=== PATIENT | male | born 1990 | race Caucasian/White ===

== ENCOUNTER → 2020-10-18 20:07 | Outpatient (CLI) | payer OTHER, SELFPAY | PROVIDERS: Visit Provider Nurse Practitioner | DX: G47.30 Sleep apnea, unspecified (principal) | CPT/HCPCS: 95811 ==

== ENCOUNTER → 2020-11-03 12:15 | Outpatient (CLI) | payer OTHER, SELFPAY | PROVIDERS: PCP Nurse Practitioner; Visit Provider Nurse Practitioner | DX: Z46.89 Encounter for fitting and adjustment of other specified devices (principal) ==

== ENCOUNTER 2020-12-30 11:35 | Outpatient (RCR) | payer OTHER, SELFPAY ==
[2017-08-23 09:45] VITALS: BMI 32.0
== END 2021-02-22 23:59 ==
LOC: IMMUN 11:35
PROVIDERS: PCP Nurse Practitioner; Referring Provider Family Medicine; Visit Provider Family Medicine
DX: Z23 Encounter for immunization (principal)
CPT/HCPCS: 0001A; 0002A; 91300

== ENCOUNTER → 2024-12-18 | Outpatient (CLI) | payer OTHER, SELFPAY ==
[2024-12-18 12:59] LABS: Hematocrit 44.7 % (40-54); Hemoglobin 14.5 g/dL (13.0-16.5)
[2024-12-18 13:54] LABS: ALB/GLOB Ratio 1.6 RATIO (0.9-2.4); AST(SGOT) 26 U/L (<=37); Alanine Aminotransfer ALT/SGPT 33 U/L (<=46); Albumin, Serum 4.5 g/dL (3.5-5.0); Alkaline Phosphatase 49 U/L (40-129); Anion Gap 11 (5-15); BUN 13 mg/dL (4-19); BUN/Creat Ratio 12.8 RATIO (10-20); Calcium,Total 9.4 mg/dL (7.6-11.0); Carbon Dioxide 23.9 mmol/L (21.0-32.0); Chloride 105 mmol/L (98-108); Cholesterol 132 mg/dL (<=200); Creatinine, Serum 0.97 mg/dL (0.70-1.20); EST Glomerular Filtration Rate 104 (>60); Estradiol 24.6 pg/mL; Follicle Stimulating Hormone 6.1 mIU/mL; Globulin 2.7 g/dL (2.2-4.2); Glucose 82 mg/dL (70-99); High Density Lipoprotein 54 mg/dL; Low Density Lipoprotein Calc. 65 mg/dL; Luteinizing Hormone 6.8 mIU/mL; Potassium 4.3 mmol/L (3.3-5.1); Protein, Total 7.2 g/dL (5.9-8.4); Sodium Level 140 mmol/L (133-145); Total Bilirubin 0.47 mg/dL (0.00-1.30); Triglycerides 66 mg/dL; Very Low Density Lipoprotein 13 mg/dL (5-40); cholesterol:hdl ratio screen 2.45
== END | disposition home or self-care (01) ==
LOC: LAB 12:26
PROVIDERS: PCP Nurse Practitioner; Referring Provider Registered Nurse; Visit Provider Registered Nurse
DX: E29.1 Testicular hypofunction (principal); R53.83 Other fatigue; Z12.5 Encounter for screening for malignant neoplasm of prostate; R68.82 Decreased libido; R63.5 Abnormal weight gain; R39.16 Straining to void
CPT/HCPCS: 36415; 80053; 80061; 82627; 82670; 83001; 83002; 84146; 84153; 84270; 84402; 84403; 84443; 85014; 85018; 82626; G0103

== ENCOUNTER 2025-04-20 12:38 | Emergency (ER) | payer OTHER, SELFPAY ==
[2025-04-20 12:39] VITALS: BP 133/88; PULSE 106; RESP 16; TEMP 36.8; O2SAT 100; BMI 31.6
--- NOTE | 2025-04-20 14:26 | RAD_ITS ---
PROCEDURE: CHEST PA AND LATERAL 04/20/2025 REASON FOR EXAM: EPIGASTRIC PAIN, COUGH; RECENT ESOPH OBSTRUCTN TECHNIQUE: CHEST PA AND LATERAL COMPARISON: None FINDINGS: Hardware: None Heart: Normal Mediastinum: Clear Lungs: Subtle mixed interstitial airspace opacity inferior right upper lobe. Bones: Normal RAD/Chest PA and Lateral IMPRESSION: Subtle, patchy opacity inferior right upper lobe. Consider pneumonia. Reading Location: [id number]
--- NOTE | 2025-04-20 14:27 | EX.ED.DYSGE1 ---
HPI History of Present Illness Chief Complaint: General Illness Informant: patient and spouse/S.O. Narrative Narrative: 35-year-old male states he was eating dinner last night which included brisket and he swallowed a piece of brisket and he felt it get stuck in his lower chest/esophagus. He tried to drink some water and vomited it up as a result. Eventually, he felt it passed and then he was able to eat and drink without any difficulty. Ever since he has had some mild epigastric discomfort that feels like a knot, and a couple times he felt some acid reflux in the back of his throat which he has felt before. Does not take anything regularly for it. He woke up in the middle of the night feeling achy all over like he had the flu. He had a mild cough for couple days, nonproductive, no fevers or chills but he states he feels very malaised today. He denies any other new symptoms, he denies ever having a choking spell or felt like he aspirated during any of this. He does not feel out of breath now or have any chest discomfort. He states he has had foods get stuck after swallowing in the past maybe 3 times he has never lasted this long or been this bad is this episode. He states it was with meat and bread in the past but it was relatively brief as far as the amount of time he got stuck. [facility] Medical History Encounter for screening for COVID-19 Home Medications ?Medication ?Instructions ?Recorded ?Last Taken ?Type hydrocodone-acetaminophen 5-325mg 1 ea PO Q6H PRN PRN Pain #30 tabs 08/23/17 Unknown Rx 5mg-325mg amoxicillin 875 mg-potassium 875 mg PO Q12H #20 TABLETS 04/20/25 Unknown Rx clavulanate 125 mg tablet pantoprazole 40 mg tablet,delayed 40 mg PO DAILY #30 tabs 04/20/25 Unknown Rx release Allergy/AdvReac Type Severity Reaction Status Date / Time owens (cherries) Allergy Swelling Verified 04/20/25 12:42 Social History housing: house Smoking Status: Never smoker ROS ROS ED Constitutional Constitutional ED: Reports body ache(s) and malaise; Denies chills or fever(s) Eyes Eyes: Denies change in vision or diplopia ENT ENT ED: Denies rhinorrhea or sore throat Cardiovascular Cardiovascular: Reports other Details: Chest discomfort lower substernal when he had meat stuck, resolved when obstruction cleared. ; Denies chest pain or palpitations Respiratory/Chest Respiratory/Chest: Reports cough; Denies dyspnea Gastrointestinal Gastrointestinal: Reports abdominal pain; Denies diarrhea, nausea or vomiting Genitourinary Genitourinary ED: Denies dysuria or hematuria Musculoskeletal Musculoskeletal: Denies back pain or neck pain Integumentary Denies abscess or rash Neurologic Neurologic: Reports headache(s); Denies paresthesias or weakness Psychiatric Psychiatric: Denies anxiety or suicidal thoughts EXAM Physical Exam Const Vital Signs: 04/20/25 12:39 04/20/25 13:43 Temperature 98.2 F Temperature Source Oral Pulse Rate 106 H Respiratory Rate 16 Respiratory Effort Normal Non-Labored Respiratory Pattern Normal Blood Pressure 133/88 H Blood Pressure Mean 103 Pulse Ox 100 Oxygen Delivery Method Room Air Positive well nourished and well developed Constitutional Narrative: Well-appearing in no distress General Appearance ED: well developed and NAD HEENT Reports moist mucous membranes HEENT Narrative: No stridor. No coughing. normocephalic and atraumatic Eyes PERRL and EOMs intact bilaterally Neck full ROM and supple Resp normal respiratory effort and clear to auscultation bilaterally Cardio regular rate, regular rhythm and no murmurs GI non-tender and non-distended GI Narrative: No epigastric tenderness; just feels like a knot. Auscultation: normoactive bowel sounds Palpation: soft Back/Spine no CVA tenderness General Back: other FROM Extremity normal to inspection General Extremety ED: Negative for edema, pulses abnormal or tenderness General Extremity: Negative for edema or pulses abnormal Neuro oriented x3, CN's II-XII intact bilaterally and no sensory deficits noted Sensorium / Orientation: awake and alert Motor Exam: strength 5/5 throughout Skin no rashes or lesions noted and no wounds MDM MDM MDM Narrative Medical decision making narrative: Patient is well-appearing, is not tachycardic on exam I do not think he is septic. I will obtain a chest x-ray to evaluate for the possibility of a pre-existing pneumonia, and aspiration pneumonia, and esophageal perforation all of which I think are unlikely based on my exam and his vital signs and history. Also obtain a COVID/influenza/RSV swab, and treat his symptoms with pantoprazole and GI cocktail. We did a COVID/influenza/RSV swab that is negative. 2 view chest x-ray my interpretation shows nothing really obvious, but radiology sees a subtle patchy opacity in the right upper lobe consistent with an early pneumonia. I reviewed the images and report which I agree with. Given the location and history, this is suspicious for aspiration etiology. Augmentin would be reasonable coverage patient does not have a penicillin allergy. He is not hypoxic or tachycardic at rest here, and he is well and not septic. Therefore I do not think he needs to be admitted to the hospital. After GI cocktail and pantoprazole, he had resolution of his epigastric discomfort and GI symptoms, which was expected. There is no evidence of esophageal perforation on the x-ray. I discussed with GI Dr. Dozier, he agrees with putting him on pantoprazole and have him follow-up as an outpatient for scope. Radiography Diagnostic Testing: Clinical Impression(s) from Imaging Studies Chest X-Ray 04/20/25 14:26 IMPRESSION: Subtle, patchy opacity inferior right upper lobe. Consider pneumonia. Reading Location: [facility] Management Discussion w/another healthcare provider: [employer]per Discharge Plan Triage Chief Complaint: General Illness ED Provider: Jese Mena Dx/Rx/DC Orders Clinical Impression: Esophageal obstruction due to food impaction, Aspiration pneumonia, GERD (gastroesophageal reflux disease) Instructions: ED Esophageal Foreign Body, Resolved, ED Pneumonia (Adult) Prescriptions: New pantoprazole 40 mg tablet,delayed release (DR/EC) 40 mg PO DAILY Qty: 30 0RF amoxicillin-pot clavulanate 875-125 mg tablet 875 mg PO Q12H Qty: 20 0RF No Action hydrocodone-acetaminophen 1 EACH tablet 1 ea PO Q6H PRN PRN (Reason: Pain) Qty: 30 0RF Primary Care Provider: Shonna Montiel [facility]ER Referrals: Zeb Dozier, [Med Staff - Active Staff] - As soon as possible (call for first avail appt) Print Language: Kenyan Disposition Disposition: Home, Self Care
[2025-04-20] MEDS: Lidocaine 2% Viscous15 ML UDC 15 ML PO (14:39)
[2025-04-20 17:00] VITALS: BP 137/74; PULSE 75; RESP 18; TEMP 36.7; O2SAT 100
== END 2025-04-20 17:02 | disposition home or self-care (01) ==
PROVIDERS: Emergency Provider Emergency Medicine; PCP Nurse Practitioner; Referring Provider Emergency Medicine; Visit Provider Emergency Medicine
DX: J69.0 Pneumonitis due to inhalation of food and vomit (principal); K22.2 Esophageal obstruction; K21.9 Gastro-esophageal reflux disease without esophagitis
CPT/HCPCS: 71046; 87631; 99283; A4216

== ENCOUNTER 2025-05-04 10:36 | Outpatient (CLI) | payer OTHER, SELFPAY ==
[2025-05-04 12:05] LABS: CRP < 3.00 mg/L (0.0-3.0)
--- OUTSIDE RECORDS SUMMARY | 2025-05-04 22:04 | XMS RPT_ITS | CCD ---
Author Organization [facility] CliniSyks Care Team Providers Care Ham Curer Name Role Phone Leslie Baker MD Primary Care Provider Leslie Baker MD Primary Care Provider Octavio KITMAN.Carol WALSH Unavailable Jase KITMANViet CARDONA Unavailable Dinesh INSPECTOR EXHAUST EMISSIONS-CShonna Primary Care Provider Collin VIRK-Keven Chapa Attending Provider [phone] Collin INSPECTOR EXHAUST EMISSIONS-CKeven Referring Provider [phone] MAYA SANCHEZ Attending Unavailable CAROL CUNNINGHAM Referring UnavailLESLIE Robison Primary Care Unavailable CAROL CUNNINGHAM Referring Unavailabl LESLIE Patel Primary Care Unavailable CAROL CUNNINGHAM Referring Unavailabl e LESLIE BAKER Primary Care Unavailable CAROL CUNNINGHAM Attending Unavailabl e LESLIE BAKER Primary Care Unavailable JENNIFER OCONNELL Referring Unavailable LESLIE BAKER Primary Care Unavailable JENNIFER OCONNELL Attending Unavailable LESLIE BAKER Primary Care Unavailable MAYA SANCHEZ Attending Unavailable MAYA SANCHEZ Referring Unavailable LESLIE BAKER Primary Care Unavailable MAYA SANCHEZ Referring Unavailable LESLIE BAKER Primary Care Unavailable LESLIE BAKER Primary Care Unavailable Dinesh INSPECTOR EXHAUST EMISSIONS-C, Shonna Primary Care Provider Rajesh RAMIREZ, Dr. Sawant Referring Provider Dr. Jese Mena MD Emergency Provider Keven Polanco Attending Unavailable Dinesh VIRK, Shonna Primary Care Unavailable Keven Polanco Referring Unavailable Jese Mena Referring Unavailable Jese Mena Attending Unavailable Dinesh VIRK, Shonna Primary Care Unavailable Rajesh RAMIREZ, Dr. Sawant Attending Provider Dinesh VIRK-C, Shonna Referring Provider [phone] Deja Payne Attending Provider [phone] Deja Payne Referring Provider [phone] Allergies Allergy Classification Reported Allergen(s) Allergy Type Date of Onset Reaction(s) Facility (2 sources) owens allergenic extract Drug Allergy 04-20-2025 Swelling [facility] (1 source) owens allergenic extract Drug Allergy 04-20-2025 [facility] Repository Medications Current Medications Medication Drug Class(es) Dates Sig (Normalized) Sig (Original) Magnesium glycinate (2 sources) take 2 tablets by mouth once daily at bedtime MAGNESIUM GLYCINATE ORAL Take 2 tablets by mouth daily at bedtime. Active multivit-minerals/foli c acid (MEN'S MULTIVITAMIN GUMMIES ORAL) (10 sources) multivit-mineral s/fol ic acid (MEN'S MULTIVITAMIN GUMMIES ORAL) Take by mouth. Adrenal support Active multivit-mineral s/folic acid (MEN'S MULTIVITAMIN GUMMIES ORAL) Take by mouth. Active multivit-mineral s/folic acid (MEN'S MULTIVITAMIN GUMMIES ORAL) Take by mouth. 0 Active Comment on above: Take by mouth. pantoprazole 40 mg delayed release oral tablet (2 sources) Proton Pump Inhibitor Start: 5 take 1 tablet by mouth once daily Pantoprazole 40 mg tablet,delayed release (DR/EC) Active 40 mg PO DAILY 30 0 April 20, 2025 12:00am predniSONE 10 mg oral tablet (1 source) Start: 3 End: 3 predniSONE (DELTASONE) 10 mg tablet Indications: Foot pain, right Take 4 tabs daily x 3 days, then 3 tabs x 3 days, 2 tabs x 3 days, then 1 tab x3 days with food. 30 tablet 0 04/20/2023 05/02/2023 Active Comment on above: Take 4 tabs daily x 3 days, then 3 tabs x 3 days, 2 tabs x 3 days, then 1 tab x3 days with food. traZODone hydrochloride 50 mg oral tablet (1 source) Serotonin Reuptake Inhibitor Start: 3 End: 3 take 1 tablet by mouth once daily at bedtime traZODone (DESYREL) 50 mg tablet Indications: Difficulty sleeping Take 1 tablet by mouth daily at bedtime. 30 tablet 5 09/27/2022 10/27/2022 Active Comment on above: Take 1 tablet by mo th daily at bedtime. Completed/Discontinued Medications Medication Drug Class(es) Dates Sig (Normalized) Sig (Original) acetaminophen 325 mg / HYDROcodone bitartrate 5 mg oral tablet (3 sources) Opioid Agonist Start: 08-23-2017 End: 05-04-2025 Hydrocodone-Acetam inophen 1 EACH tablet Discontinued 1 NMA PO EVERY 6 HOURS NEEDED as needed for Pain 30 0 August 23, 2017 8:29am May 04, 2025 10:05am amoxicillin 875 mg / clavulanate 125 mg oral tablet (2 sources) Penicillin-class Antibacterial Start: 04-20-2025 End: 05-04-2025 take 1 tablet by mouth every twelve hours Amoxicillin-Pot Clavulanate 875-125 mg tablet Discontinued 875 mg PO Q12H 20 0 April 20, 2025 12:00am May 04, 2025 10:04am Problems Active Problems Problem Classification Problem Date Documented Da te Episodic/Chronic Anxiety disorders (1 source) Irritability and anger; Translations: [Irritable] Onset: 5 Episodic Aspiration pneumonitis; food/vomitus (3 sources) Aspiration pneumonia; Translations: [Pneumonitis due to inhalation of food and vomit] Onset: 5 04-20-2025 Episodic Conditions associated with dizziness or vertigo (2 sources) Dizziness; Translations: [Dizziness and giddiness] 11-26-2023 Episodic Esophageal disorders (4 sources) Gastroesophageal reflux disease; Translations: [Gastro-esophageal reflux disease without esophagitis] 04-20-2025 Chronic Malaise and fatigue (1 source) Fatigue; Translations: [Other fatigue] 12-31-2023 Episodic Open wounds of extremities (1 source) Laceration of finger without foreign body; Translations: [Laceration without foreign body of right index finger without damage to nail, initial encounter] 08-17-2023 Episodic Other connective tissue disease (1 source) Pain in right foot; Translations: [Pain in right foot] 04-20-2023 Episodic Other connective tissue disease (3 sources) Swelling of lower leg; Translations: [Other specified soft tissue disorders] 07-24-2024 Episodic Other diseases of veins and lymphatics (2 sources) Peripheral venous insufficiency; Translations: [Venous insufficiency (chronic) (peripheral)] 07-29-2024 Episodic Other endocrine disorders (1 source) Testicular hypofunction; Translations: [Testicular hypofunction] Onset: Chronic Other gastrointestinal disorders (2 sources) Disorder of gastrointestinal tract; Translations: [Other specified diseases of the digestive system] 05-04-2025 Episodic Other gastrointestinal disorders (2 sources) Urgent desire for stool; Translations: [Fecal urgency] 05-04-2025 Episodic Other injuries and conditions due to external causes (1 source) Contusion; Translations: [Other injury of unspecified body region, initial encounter] Episodic Other injuries and conditions due to external causes (2 sources) Injury of finger; Translations: [Unspecified injury of unspecified wrist, hand and finger(s), initial encounter] 08-17-2023 Episodic Other injuries and conditions due to external causes (2 sources) Obstruction of esophagus; Translations: [Food in esophagus causing other injury, initial encounter] 04-20-2025 Episodic Other lower respiratory disease (1 source) Cough; Translations: [Acute cough] 09-03-2024 Episodic Other non-traumatic joint disorders (1 source) Acute ankle pain; Translations: [Pain in right ankle and joints of right foot] 06-20-2021 Episodic Other nutritional; endocrine; and metabolic disorders (1 source) Obesity; Translations: [Other obesity due to excess calories] Onset: 0 08-18-2020 Chronic Other nutritional; endocrine; and metabolic disorders (16 sources) Obesity caused by energy imbalance; Translations: [Other obesity due to excess calories] Onset: 0 08-18-2020 Chronic Other screening for suspected conditions (not mental disorders or infectious disease) (6 sources) Patient encounter status; Translations: [Encounter for screening for diabetes mellitus] Episodic Other upper respiratory disease (3 sources) Respiratory tract congestion; Translations: [Nasal congestion] 01-20-2021 Episodic Residual codes; unclassified (17 sources) Obstructive sleep apnea syndrome; Translations: [Obstructive sleep apnea (adult) (pediatric)] Onset: 3 Chronic Residual codes; unclassified (1 source) Difficulty sleeping ; Translations: [Sleep disorder, unspecified] Episodic Residual codes; unclassified (1 source) Family history of factor V deficiency; Translations: [Family history of diseases of the blood and blood-forming organs and certain disorders involving the immune mechanism] 07-24-2024 Episodic Residual codes; unclassified (1 source) Decreased libido; Translations: [Libido, decreased] Onset: 5 Episodic Unclassified (17 sources) NEGATIVE MEDICAL HISTORY 11-26-2013 Unclassified (2 sources) call for first avail appt Viral infection (1 source) Viral disease; Translations: [Viral infection, unspecified] 11-26-2023 Episodic Past or Other Problems Problem Classification Problem Date Documented Da te Episodic/Chronic Other circulatory disease (17 sources) Elevated blood-pressure reading without diagnosis of hypertension; Translations: [Elevated blood-pressure reading, without diagnosis of hypertension] Onset: 08-18-2020 08-18-2020 Episodic Other connective tissue disease (1 source) Other specified soft tissue disorders; Translations: [Swelling of lower leg] Onset: 07-29-2024 Episodic Residual codes; unclassified (1 source) Family history of diseases of the blood and blood-forming organs and certain disorders involving the immune mechanism; Translations: [Family history of factor V deficiency] Onset: 07-24-2024 Episodic Varicose veins of lower extremity (3 sources) Venous varices; Translations: [Varicose veins of right lower extremity with other complications] Onset: 10-14-2024 07-29-2024 Episodic Results Test Name Value Interpretation Reference Range Facility Chest PA and Lateralon 04-20 Chest PA and Lateral [facility] Imaging Services [address] [place] [address] Chest PA and Lateral MR#: [id number] Acct: [id number] Name: ROSHAN BELLO Rep #: [id number] : 1990 M 35 From: Placido Javed MD PCP: LAKISHA AceC Status: REG ER Study: Chest PA and Lateral Date of Exam: 04/20/25 Exam# [id number] Ordering Dr: Jese Mena MD PROCEDURE: CHEST PA AND LATERAL 04/20/2025 REASON FOR EXAM: EPIGASTRIC PAIN, COUGH; RECENT ESOPH OBSTRUCTN TECHNIQUE: CHEST PA AND LATERAL COMPARISON: None FINDINGS: Hardware: None Heart: Normal Mediastinum: Clear Lungs: Subtle mixed interstitial airspace opacity inferior right upper lobe. Bones: Normal RAD/Chest PA and Lateral IMPRESSION: Subtle, patchy opacity inferior right upper lobe. Consider pneumonia. Reading Location: [id number] CC: INSPECTOR EXHAUST EMISSIONS-C Shonna Louis; Dr. Jese Mena MD Wire Galvanizer: Signed Normal [facility] Emergency Department Summary on 04-20-2025 Emergency Department Summary [facility] Medical Records Department [address] [place] [id number] Emergency Department Summary 04/20/25 MR#: [id number] Acct: [id number] Name: ROSHAN BELLO Rep #: [id number] : 1990 35 From: Jese Mena MD PCP: CHELY Ace Status:REG ER Location: ED HPI History of Present Illness Chief Complaint: General Illness Informant: patient and spouse/S.O. Narrative Narrative: 35-year-old male states he was eating dinner last night which included brisket and he swallowed a piece of brisket and he felt it get stuck in his lower chest/esophagus. He tried to drink some water and vomited it up as a result. Eventually, he felt it passed and then he was able to eat and drink without any difficulty. Ever since he has had some mild epigastric discomfort that feels like a knot, and a couple times he felt some acid reflux in the back of his throat which he has felt before. Does not take anything regularly for it. He woke up in the middle of the night feeling achy all over like he had the flu. He had a mild cough for couple days, nonproductive, no fevers or chills but he states he feels very malaised today. He denies any other new symptoms, he denies ever having a choking spell or felt like he aspirated during any of this. He does not feel out of breath now or have any chest discomfort. He states he has had foods get stuck after swallowing in the past maybe 3 times he has never lasted this long or been this bad is this episode. He states it was with meat and bread in the past but it was relatively brief as far as the amount of time he got stuck. [facility] Medical History Encounter for screening for COVID-19 Home Medications ???Medication ???Instructions ???Recorded ???Last Taken ???Type hydrocodone-acetaminophe n 5-325mg 1 ea PO Q6H PRN PRN Pain #30 tabs 08/23/17 Unknown Rx 5mg-325mg amoxicillin 875 mg-potassium 875 mg PO Q12H #20 TABLETS 5 Unknown Rx clavulanate 125 mg tablet pantoprazole 40 mg tablet,delayed 40 mg PO DAILY #30 tabs 04/20/25 Unknown Rx release Allergy/AdvReac Type Severity Reaction Status Date / Time owens (cherries) Allergy Swelling Verified 04/20/25 12:42 Social History housing: house Smoking Status: Never smoker ROS ROS ED Constitutional Constitutional ED: Reports body ache(s) and malaise; Denies chills or fever(s) Eyes Eyes: Denies change in vision or diplopia ENT ENT ED: Denies rhinorrhea or sore throat Cardiovascular Cardiovascular: Reports other Details: Chest discomfort lower substernal when he had meat stuck, resolved when obstruction cleared. ; Denies chest pain or palpitations Respiratory/Chest Respiratory/Chest: Reports cough; Denies dyspnea Gastrointestinal Gastrointestinal: Reports abdominal pain; Denies diarrhea, nausea or vomiting Genitourinary Genitourinary ED: Denies dysuria or hematuria Musculoskeletal Musculoskeletal: Denies back pain or neck pain Integumentary Denies abscess or rash Neurologic Neurologic: Reports headache(s); Denies paresthesias or weakness Psychiatric Psychiatric: Denies anxiety or suicidal thoughts EXAM Physical Exam Const Vital Signs: 04/20/25 12:39 04/20/25 13:43 Temperature 98.2 F Temperature Source Oral Pulse Rate 106 H Respiratory Rate 16 Respiratory Effort Normal Non-Labored Respiratory Pattern Normal Blood Pressure 133/88 H Blood Pressure Mean 103 Pulse Ox 100 Oxygen Delivery Method Room Air Positive well nourished and well developed Constitutional Narrative: Well-appearing in no distress General Appearance ED: well developed and NAD HEENT Reports moist mucous membranes HEENT Narrative: No stridor. No coughing. normocephalic and atraumatic Eyes PERRL and EOMs intact bilaterally Neck full ROM and supple Resp normal respiratory effort and clear to auscultation bilaterally Cardio regular rate, regular rhythm and no murmurs GI non-tender and non-distended GI Narrative: No epigastric tenderness; just feels like a knot. Auscultation: normoactive bowel sounds Palpation: soft Back/Spine no CVA tenderness General Back: other FROM Extremity normal to inspection General Extremety ED: Negative for edema, pulses abnormal or tenderness General Extremity: Negative for edema or pulses abnormal Neuro oriented x3, CN's II-XII intact bilaterally and no sensory deficits noted Sensorium / Orientation: awake and alert Motor Exam: strength 5/5 throughout Skin no rashes or lesions noted and no wounds MDM MDM MDM Narrative Medical decision making narrative: Patient is well-appearing, is not tachycardic on exam I do not think he is septic. I will obtai (more content not included)... [facility] Influenza virus A and B and SARS-CoV-2 (COVID-19) and Respiratory syncytial virus RNAOrdered By: Jese Mena on 04-20-2025 SARS-CoV-2 (COVID-19) RNA SCOOTER+probe Ql (Unsp spec) [facility] M100.678on 04-20-2025 M100.678 Pending SARS-CoV-2 (COVID 19) Negative INFLUENZA A Negative INFLUENZA B Negative RSV PCR Negative [facility] Comment on above: Performed By: #### L 501.9520, L3100.5310, L500.4100, L100.0600, L3100.5125, L3100.5170, L3300.1750, L3100.5060, L501.9910, L3300.1500, L3100.5400, L500.4050 #### [facility] [address] [place], [place], [id number] Testost SerPl-mCncon 025 Testosterone [Mass/Vol] 462 ng/dL Normal 193-824 [facility] Comment on above: Order Comment: Speci men Type: BLOOD SPECIMENOrdering Facility: [facility] Address: [address] [place] [address] Result Comment: A te stosterone level in the 193-320 ng/dL range with associated clinical symptoms is considered low and may indicate hypogonadism (from [facility] 2010 363:123-135). Results >320 ng/dL are considered normal. Performed By: #### 2 986-8 ####[facility] LABCLIA [id number] [address] STATES OF [facility] DHEA Sulfateon 01-02-2025 DHEA SULFATE 327.0 ug/dL Normal 102.6-416.3 [facility] Comment on above: Order Comment: N Performed By: #### L 501.9520, L3100.5310, L500.4100, L100.0600, L3100.5125, L3100.5170, L3300.1750, L3100.5060, L501.9910, L3300.1500, L3100.5400, L500.4050 #### [facility] [address] [place], [place], [id number] PROLACTIN 4465on 01-02-2025 PROLACTIN 13.1 ng/mL Normal 3.9-22.7 [facility] Comment on above: Performed By: #### L 501.9520, L3100.5310, L500.4100, L100.0600, L3100.5125, L3100.5170, L3300.1750, L3100.5060, L501.9910, L3300.1500, L3100.5400, L500.4050 #### [facility] [address] [place], [place], [id number] Sex Hormone-binding Globulin on 01-02-2025 SHBG 29.1 nmol/L Normal 16.5-55.9 [facility] Comment on above: Result Comment: Perf ormed at: - [facility] [address] [id number] Supervising Editor Trailer: Prosper Hwang PhD, Phone: [phone] Performed at: - [facility] [address] [id number] Supervising Editor Trailer: Hayder Quiles MD, Phone: [phone] Performed By: #### L 501.9520, L3100.5310, L500.4100, L100.0600, L3100.5125, L3100.5170, L3300.1750, L3100.5060, L501.9910, L3300.1500, L3100.5400, L500.4050 #### [facility] [address] [place], [address] Testosterone, Total / Freeon 01-02-2025 TESTOSTER,FREE 13.28 ng/dL Normal 5.00-21.00 [facility] Comment on above: Order Comment: N Performed By: #### L 501.9520, L3100.5310, L500.4100, L100.0600, L3100.5125, L3100.5170, L3300.1750, L3100.5060, L501.9910, L3300.1500, L3100.5400, L500.4050 #### [facility] [address] [place], [place], [id number] TESTOSTER,TOTAL 369 ng/dL Normal 264-916 [facility] Comment on above: Order Comment: N Result Comment: Adul t male reference interval is based on a population of healthy nonobese males (BMI <30) between 19 and 39 years old. piter Zendejas.al. JCEM 2017,102;8946-2775. PMID: [id number]. Performed By: #### L 501.9520, L3100.5310, L500.4100, L100.0600, L3100.5125, L3100.5170, L3300.1750, L3100.5060, L501.9910, L3300.1500, L3100.5400, L500.4050 #### [facility] [address] [place], [place], [id number] (551) TESTOSTERONE,%F 3.60 Normal 1.50-4.20 [facility] Comment on above: Order Comment: N Performed By: #### L 501.9520, L3100.5310, L500.4100, L100.0600, L3100.5125, L3100.5170, L3300.1750, L3100.5060, L501.9910, L3300.1500, L3100.5400, L500.4050 #### [facility] [address] [place], [place], [id number] (235) Anion gap in Serum or Plasma Ordered By: Keven Polanco on 12-18-2024 Anion gap [Moles/Vol] 11 mmol/L 5-15 [facility] BUN/creatinine ratioOrdered By: Keven Polanco on 12-18-2024 Urea nitrogen/Creatinine [Mass ratio] 12.8 mg/mg 10-20 [facility] Bilirubin, totalOrdered By: Keven Polanco on 12-18-2024 Bilirubin [Mass/Vol] 0.47 mg/dL 0.00-1.30 [facility] Calculated very low density lipoprotein (VLDL) cholesterol measurementOrdered By: Keven Polanco on 12-18-2024 VLDL Cholesterol 13 mg/dL 5-40 [facility] Carbon dioxide, total [Moles /volume] in Central venous bloodOrdered By: Keven Polanco on 12-18-2024 CO2 [Moles/Vol] 23.9 mmol/L 21.0-32.0 [facility] Chloride assayOrdered By: Yani Polanco on 12-18-2024 Chloride [Moles/Vol] 105 mmol/L 98-108 [facility] Comprehensive Metabolic Prof ilon 12-18-2024 Albumin [Mass/Vol] 4.5 g/dL Normal 3.5-5.0 [facility] Comment on above: Performed By: #### L 501.9520, L3100.5310, L500.4100, L100.0600, L3100.5125, L3100.5170, L3300.1750, L3100.5060, L501.9910, L3300.1500, L3100.5400, L500.4050 #### [facility] [address] [place], [address] Albumin/Globulin [Mass ratio] 1.6 {ratio} Normal 0.9-2.4 [facility] Comment on above: Performed By: #### L 501.9520, L3100.5310, L500.4100, L100.0600, L3100.5125, L3100.5170, L3300.1750, L3100.5060, L501.9910, L3300.1500, L3100.5400, L500.4050 #### [facility] [address] [place], [address] ALK PHOS 49 U/L Normal 40-129 [facility] Comment on above: Performed By: #### L 501.9520, L3100.5310, L500.4100, L100.0600, L3100.5125, L3100.5170, L3300.1750, L3100.5060, L501.9910, L3300.1500, L3100.5400, L500.4050 #### [facility] [address] [place], [address] ALT [Catalytic activity/Vol] 33 U/L Normal <=46 [facility] Comment on above: Performed By: #### L 501.9520, L3100.5310, L500.4100, L100.0600, L3100.5125, L3100.5170, L3300.1750, L3100.5060, L501.9910, L3300.1500, L3100.5400, L500.4050 #### [facility] [address] [place], [address] AST [Catalytic activity/Vol] 26 U/L Normal <=37 [facility] Comment on above: Performed By: #### L 501.9520, L3100.5310, L500.4100, L100.0600, L3100.5125, L3100.5170, L3300.1750, L3100.5060, L501.9910, L3300.1500, L3100.5400, L500.4050 #### [facility] [address] [place], [address] Bilirubin [Mass/Vol] 0.47 mg/dL Normal 0.00-1.30 [facility] Comment on above: Performed By: #### L 501.9520, L3100.5310, L500.4100, L100.0600, L3100.5125, L3100.5170, L3300.1750, L3100.5060, L501.9910, L3300.1500, L3100.5400, L500.4050 #### [facility] [address] [place], [address] BUN/CRE 12.8 RATIO Normal 10-20 [facility] Comment on above: Performed By: #### L 501.9520, L3100.5310, L500.4100, L100.0600, L3100.5125, L3100.5170, L3300.1750, L3100.5060, L501.9910, L3300.1500, L3100.5400, L500.4050 #### [facility] [address] [place], [address] Calcium [Mass/Vol] 9.4 mg/dL Normal 7.6-11.0 [facility] Comment on above: Performed By: #### L 501.9520, L3100.5310, L500.4100, L100.0600, L3100.5125, L3100.5170, L3300.1750, L3100.5060, L501.9910, L3300.1500, L3100.5400, L500.4050 #### [facility] [address] [place], [place], [id number] Chloride [Moles/Vol] 105 mmol/L Normal 98-108 [facility] Comment on above: Performed By: #### L 501.9520, L3100.5310, L500.4100, L100.0600, L3100.5125, L3100.5170, L3300.1750, L3100.5060, L501.9910, L3300.1500, L3100.5400, L500.4050 #### [facility] [address] [place], [address] (378) CO2 [Moles/Vol] 23.9 mmol/L Normal 21.0-32.0 [facility] Comment on above: Performed By: #### L 501.9520, L3100.5310, L500.4100, L100.0600, L3100.5125, L3100.5170, L3300.1750, L3100.5060, L501.9910, L3300.1500, L3100.5400, L500.4050 #### [facility] [address] [place], [place], [id number] Creatinine [Mass/Vol] 0.97 mg/dL Normal 0.70-1.20 [facility] Comment on above: Performed By: #### L 501.9520, L3100.5310, L500.4100, L100.0600, L3100.5125, L3100.5170, L3300.1750, L3100.5060, L501.9910, L3300.1500, L3100.5400, L500.4050 #### [facility] [address] [place], [place], [id number] GAP 11 Normal 5-15 [facility] Comment on above: Performed By: #### L 501.9520, L3100.5310, L500.4100, L100.0600, L3100.5125, L3100.5170, L3300.1750, L3100.5060, L501.9910, L3300.1500, L3100.5400, L500.4050 #### [facility] [address] [place], [place], [id number] GFR/1.73 sq M.predicted among non-blacks MDRD (S/P/Bld) [Vol rate/Area] 104 mL/min/{1.73_m2} Normal >60 [facility] Comment on above: Result Comment: mL/m in/1.73m2 CKD-EPI Creatinine Equation (2020) Performed By: #### L 501.9520, L3100.5310, L500.4100, L100.0600, L3100.5125, L3100.5170, L3300.1750, L3100.5060, L501.9910, L3300.1500, L3100.5400, L500.4050 #### [facility] [address] [place], [place], [id number] Globulin (S) [Mass/Vol] 2.7 g/dL Normal 2.2-4.2 [facility] Comment on above: Performed By: #### L 501.9520, L3100.5310, L500.4100, L100.0600, L3100.5125, L3100.5170, L3300.1750, L3100.5060, L501.9910, L3300.1500, L3100.5400, L500.4050 #### [facility] [address] [place], [place], [id number] Glucose [Mass/Vol] 82 mg/dL Normal 70-99 [facility] Comment on above: Performed By: #### L 501.9520, L3100.5310, L500.4100, L100.0600, L3100.5125, L3100.5170, L3300.1750, L3100.5060, L501.9910, L3300.1500, L3100.5400, L500.4050 #### [facility] [address] [place], [address] Potassium [Moles/Vol] 4.3 mmol/L Normal 3.3-5.1 [facility] Comment on above: Performed By: #### L 501.9520, L3100.5310, L500.4100, L100.0600, L3100.5125, L3100.5170, L3300.1750, L3100.5060, L501.9910, L3300.1500, L3100.5400, L500.4050 #### [facility] [address] [place], [place], [phone] ([phone] Sodium [Moles/Vol] 140 mmol/L Normal 133-145 [facility] Comment on above: Performed By: #### L 501.9520, L3100.5310, L500.4100, L100.0600, L3100.5125, L3100.5170, L3300.1750, L3100.5060, L501.9910, L3300.1500, L3100.5400, L500.4050 #### [facility] [address] [place], [place], [id number] T PROT 7.2 g/dL Normal 5.9-8.4 [facility] Comment on above: Performed By: #### L 501.9520, L3100.5310, L500.4100, L100.0600, L3100.5125, L3100.5170, L3300.1750, L3100.5060, L501.9910, L3300.1500, L3100.5400, L500.4050 #### [facility] [address] [place], [place], [id number] Urea nitrogen [Mass/Vol] 13 mg/dL Normal 4-19 [facility] Comment on above: Performed By: #### L 501.9520, L3100.5310, L500.4100, L100.0600, L3100.5125, L3100.5170, L3300.1750, L3100.5060, L501.9910, L3300.1500, L3100.5400, L500.4050 #### [facility] [address] [place], [address] E2 post dose follitropin [Ma ss/Vol]Ordered By: Keven Polanco on 12-18-2024 Estradiol (E2) Level 24.6 pg/mL [facility] Comment on above: MALES ADULT MALE: 10 -40 pg/mL HUNG STAGES MEAN AGE REFERENCE RANGES Stage I(>14 days and prepubertal) 7.1 years Undetectable-13 pg/mL Stage II 12.1 years Undetectable-16 pg/mL Stage III 13.6 years Undetectable-26 pg/mL Stage IV 15.1 years Undetectable-38 pg/mL Stage V 18 years 10-40 pg/mL Puberty onset (transition from Hung stage I to Hung Stage II) occurs for boys at a median age of 11.5 (+/- 2) years. For boys, there is no proven relationship between puberty onset and body weight or ethnic origin. Progression through Hung stages is variable. Hung stage V (adult) should be reached by age 18. Estradiolon 12-18-2024 ESTRADIOL 24.6 pg/mL Normal [facility] Comment on above: Result Comment: MALE S ADULT MALE: 10-40 pg/mL HUNG STAGES MEAN AGE REFERENCE RANGES Stage I(>14 days and prepubertal) 7.1 years Undetectable-13 pg/mL Stage II 12.1 years Undetectable-16 pg/mL Stage III 13.6 years Undetectable-26 pg/mL Stage IV 15.1 years Undetectable-38 pg/mL Stage V 18 years 10-40 pg/mL Puberty onset (transition from Hung stage I to Hung Stage II) occurs for boys at a median age of 11.5 (+/- 2) years. For boys, there is no proven relationship between puberty onset and body weight or ethnic origin. Progression through Hung stages is variable. Hung stage V (adult) should be reached by age 18. Performed By: #### L 501.9520, L3100.5310, L500.4100, L100.0600, L3100.5125, L3100.5170, L3300.1750, L3100.5060, L501.9910, L3300.1500, L3100.5400, L500.4050 #### [facility] [address] [place], [address] Follicle Stimulating Hormone on 12-18-2024 FSH 6.1 mIU/mL Normal [facility] Comment on above: Result Comment: FEMA LE: Follicular: 1.4 - 18.1 mIU/mL Midcycle: 3.4 - 33.4 mIU/mL Luteal: 1.5 - 9.1 mIU/mL Post Menopause: 23.0 - 116.3 mIU/mL MALE: 1.4 - 18.1 mIU/mL NORMAL REFERENCE RANGES FEMALE FOLLICULAR 2.3 - 12.6 mIU/mL MID-CYCLE PEAK 5.2 - 17.5 mIU/mL LUTEAL 1.7 - 12.9 mIU/mL POST-MENOPAUSAL ON MHT 5.9 - 72.8 mIU/mL NOT ON MHT 12.7 - 132.2 mlU/mL MALE 0.7 - 10.8 mIU/mL Performed By: #### L 501.9520, L3100.5310, L500.4100, L100.0600, L3100.5125, L3100.5170, L3300.1750, L3100.5060, L501.9910, L3300.1500, L3100.5400, L500.4050 #### [facility] [address] [place], [address] Follicle stimulating hormone (FSH) levelOrdered By: Keven Polanco on 12-18-2024 Follicle Stimulating Hormone 6.1 mIU/mL [facility] Comment on above: FEMALE:Follicular: 1 .4 - 18.1 mIU/mLMidcycle: 3.4 - 33.4 mIU/mLLuteal: 1.5 - 9.1 mIU/mLPost Menopause: 23.0 - 116.3 mIU/mLMALE: 1.4 - 18.1 mIU/mL NORMAL REFERENCE RANGES FEMALE FOLLICULAR 2.3 - 12.6 mIU/mL MID-CYCLE PEAK 5.2 - 17.5 mIU/mL LUTEAL 1.7 - 12.9 mIU/mL POST-MENOPAUSAL ON MHT 5.9 - 72.8 mIU/mL NOT ON MHT 12.7 - 132.2 mlU/mL MALE 0.7 - 10.8 mIU/mL GFR/1.73 sq M.predicted chalino g non-blacks MDRD (S/P/Bld) [Vol rate/Area]Ordered By: Keven Polanco on 12-18-2024 Estimated GFR (MDRD) Non-Af Amer 104 >60 [facility] Comment on above: mL/min/1.73m2 CKD-EP I Creatinine Equation (2020) HH, Hemoglobin AND Hematocri ton 12-18-2024 Hematocrit (Bld) [Volume fraction] 44.7 % Normal 40-54 [facility] Comment on above: Performed By: #### L 501.9520, L3100.5310, L500.4100, L100.0600, L3100.5125, L3100.5170, L3300.1750, L3100.5060, L501.9910, L3300.1500, L3100.5400, L500.4050 #### [facility] [address] [place], [place], [phone] (019) Hemoglobin (Bld) [Mass/Vol] 14.5 g/dL Normal 13.0-16.5 [facility] Comment on above: Performed By: #### L 501.9520, L3100.5310, L500.4100, L100.0600, L3100.5125, L3100.5170, L3300.1750, L3100.5060, L501.9910, L3300.1500, L3100.5400, L500.4050 #### [facility] [address] [place], [address] [phone] Hematocrit Auto (Bld) [Volum e fraction]Ordered By: Keven Polanco on 12-18-2024 Hematocrit (Bld) [Volume fraction] 44.7 % 40-54 [facility] Hemoglobin measurementOrdere d By: Keven Polanco on 12-18-2024 Hemoglobin (Bld) [Mass/Vol] 14.5 g/dL 13.0-16.5 [facility] LDL calc ser/plasOrdered By: Keven Polanco on 12-18-2024 LDL Cholesterol, Calculated 65 mg/dL [facility] Comment on above: Cmnzrjdtgu=915-418 m g/dL & Higher Bezy=601 mg/dL or greater LH ser/plasOrdered By: Moose Polanco on 12-18-2024 Luteinizing Hormone 6.8 mIU/mL [facility] Comment on above: FEMALE:Follicular: 1 .9-12.5 mIU/mLMidcycle: 8.7-76.3 mIU/mLLuteal: 0.5-16.9 mIU/mLPost Menopause: 15.9-54.0 mIU/mLMALE:20-70 Years: 1.5-9.3 mIU/mL>70 Years: 3.1-34.6 mIU/mL Laboratory - Chemistry and C hemistry - challengeOrdered By: Keven Polanco on 12-18-2024 AST [Catalytic activity/Vol] 26 U/L <38 [facility] Lipid Profileon 12-18-2024 CHOL:HDL 2.45 Normal [facility] Comment on above: Performed By: #### L 501.9520, L3100.5310, L500.4100, L100.0600, L3100.5125, L3100.5170, L3300.1750, L3100.5060, L501.9910, L3300.1500, L3100.5400, L500.4050 #### [facility] [address] [facility] [place], [address] Cholesterol [Mass/Vol] 132 mg/dL Normal <=200 [facility] Comment on above: Result Comment: Chol esterol level, Desirable <200 mg/dL Borderline high cholesterol 200-239 mg/dL High cholesterol >=240 mg/dL Recommendations of the NCEP Adult Treatment Panel for the following risk-cutoff thresholds for the [place] population. Performed By: #### L 501.9520, L3100.5310, L500.4100, L100.0600, L3100.5125, L3100.5170, L3300.1750, L3100.5060, L501.9910, L3300.1500, L3100.5400, L500.4050 #### [facility] [address] [place], [place], [phone] (112) Cholesterol in HDL [Mass/Vol] 54 mg/dL Normal [facility] Comment on above: Result Comment: [employer] on[employer] Cholesterol Education Program (NCEP) guidelines: <40 mg/dL: Low HDL-cholesterol (major risk factor for CHD) >= 60 mg/dL: High HDL-cholesterol (negative risk factor for CHD) HDL-cholesterol is affected by a number of factors, e.g. smoking, exercise, hormones, sex and age. Performed By: #### L 501.9520, L3100.5310, L500.4100, L100.0600, L3100.5125, L3100.5170, L3300.1750, L3100.5060, L501.9910, L3300.1500, L3100.5400, L500.4050 #### [facility] [address] [place], [address] ([phone] Cholesterol in LDL [Mass/Vol] 65 mg/dL Normal [facility] Comment on above: Result Comment: Bord dtnkxm=565-618 mg/dL Higher Uqgy=490 mg/dL or greater Performed By: #### L 501.9520, L3100.5310, L500.4100, L100.0600, L3100.5125, L3100.5170, L3300.1750, L3100.5060, L501.9910, L3300.1500, L3100.5400, L500.4050 #### [facility] [address] [place], [place], [phone] (442) Cholesterol in VLDL [Mass/Vol] 13 mg/dL Normal 5-40 [facility] Comment on above: Performed By: #### L 501.9520, L3100.5310, L500.4100, L100.0600, L3100.5125, L3100.5170, L3300.1750, L3100.5060, L501.9910, L3300.1500, L3100.5400, L500.4050 #### [facility] [address] [place], [address] Triglyceride [Mass/Vol] 66 mg/dL Normal [facility] Comment on above: Result Comment: The drugs N-Acetylcysteine and Metamizole may falsely depress this assay. Normal range: <150 mg/dL Borderline High: 150-199 mg/dL High: 200-499 mg/dL Very High: >500 mg/dL Performed By: #### L 501.9520, L3100.5310, L500.4100, L100.0600, L3100.5125, L3100.5170, L3300.1750, L3100.5060, L501.9910, L3300.1500, L3100.5400, L500.4050 #### [facility] [address] [place], [address] Luteinizing Hormoneon 2024 LH 6.8 mIU/mL Normal [facility] Comment on above: Result Comment: FEMA LE: Follicular: 1.9-12.5 mIU/mL Midcycle: 8.7-76.3 mIU/mL Luteal: 0.5-16.9 mIU/mL Post Menopause: 15.9-54.0 mIU/mL MALE: 20-70 Years: 1.5-9.3 mIU/mL >70 Years: 3.1-34.6 mIU/mL Performed By: #### L 501.9520, L3100.5310, L500.4100, L100.0600, L3100.5125, L3100.5170, L3300.1750, L3100.5060, L501.9910, L3300.1500, L3100.5400, L500.4050 #### [facility] [address] [place], [address] PSA, total screeningOrdered By: Keven Polanco on 12-18-2024 Prostate Specific Antigen Screen 1.00 ng/mL 0.02-4.00 [facility] Comment on above: This test was perfor med using the [employer] tPSA method. Measured values of a patient sample can vary depending on the testing procedure used. PSA values determined on patient samples by different testing procedures cannot be used interchangeably. If there is a change in PSA assays while monitoring therapy, sequential testing should be performed to confirm baseline values. PSA,Total - Annual Screenon 12-18-2024 PSA,TOT SCREEN 1.00 ng/mL Normal 0.02-4.00 [facility] Comment on above: Result Comment: This test was performed using the [employer] tPSA method. Measured values of a patient??sample can vary depending on the testing procedure used. PSA values determined on patient samples by different testing procedures cannot be used interchangeably. If there is a change in PSA assays while monitoring therapy, sequential testing should be performed to confirm baseline values. Performed By: #### L 501.9520, L3100.5310, L500.4100, L100.0600, L3100.5125, L3100.5170, L3300.1750, L3100.5060, L501.9910, L3300.1500, L3100.5400, L500.4050 #### [facility] [address] [place], [place], [id number] Potassium (Unsp spec) [Mass/ Vol]Ordered By: Keven Polanco on 12-18-2024 Potassium [Moles/Vol] 4.3 mmol/L 3.3-5.1 [facility] Screening total cholesterol/ high density lipoprotein (HDL) cholesterol ratioOrdered By: Keven Polanco on 12-18-2024 Cholesterol.total/Chol esterol in HDL [Mass ratio] 2.45 {ratio} [facility] Serum creatinine measurement (mass/volume)Ordered By: Keven Polanco on 12-18-2024 Creatinine [Mass/Vol] 0.97 mg/dL 0.70-1.20 [facility] Serum globulin measurementOr dered By: Keven Polanco on 12-18-2024 Globulin (S) [Mass/Vol] 2.7 g/dL 2.2-4.2 [facility] Serum glucose measurement (m ass/volume)Ordered By: Keven Polanco on 12-18-2024 Glucose [Mass/Vol] 82 mg/dL 70-99 [facility] Serum or plasma alanine cheng otransferase (ALT) measurementOrdered By: Keven Polanco on 12-18-2024 ALT [Catalytic activity/Vol] 33 U/L <47 [facility] Serum or plasma albumin wilma urement (mass/volume)Ordered By: Keven Polanco on 12-18-2024 Albumin [Mass/Vol] 4.5 g/dL 3.5-5.0 [facility] Serum or plasma albumin/glob ulin mass ratioOrdered By: Keven Polanco on 12-18-2024 Albumin/Globulin [Mass ratio] 1.6 {ratio} 0.9-2.4 [facility] Serum or plasma alkaline darrius sphatase measurementOrdered By: Keven Polanco on 12-18-2024 ALP [Catalytic activity/Vol] 49 U/L 40-129 [facility] Serum or plasma calcium wilma urement (mass/volume)Ordered By: Keven Polanco on 12-18-2024 Calcium [Mass/Vol] 9.4 mg/dL 7.6-11.0 [facility] Serum or plasma cholesterol in HDL measurement (mass/volume)Ordered By: Keevn Polanco on 12-18-2024 Cholesterol in HDL [Mass/Vol] 54 mg/dL >40 [facility] Comment on above: National Cholesterol Education Program (NCEP) guidelines:<40 mg/dL: Low HDL-cholesterol (major risk factor for CHD)>= 60 mg/dL: High HDL-cholesterol (negative risk factor for CHD)HDL-cholesterol is affected by a number of factors, e.g. smoking, exercise, hormones, sex and age. Serum or plasma cholesterol measurement (mass/volume)Ordered By: Keven Polanco on 12-18-2024 Cholesterol [Mass/Vol] 132 mg/dL <201 [facility] Comment on above: Cholesterol level, D esirable <200 mg/dLBorderline high cholesterol 200-239 mg/dLHigh cholesterol >=240 mg/dLRecommendations of the NCEP Adult Treatment Panel for the following risk-cutoff thresholds for the [place] population. Serum or plasma urea nitroge n measurement (mass/volume)Ordered By: Keven Polanco on 12-18-2024 Urea nitrogen [Mass/Vol] 13 mg/dL 4-19 [facility] Sodium levelOrdered By: Artis Polanco on 12-18-2024 Sodium [Moles/Vol] 140 mmol/L 133-145 [facility] TSH DL <= 0.005 mIU/L QnOrde red By: Keven Polanco on 12-18-2024 Thyroid Stimulating Hormone (TSH) 1.990 uIU/mL 0.300-4.200 [facility] Thyroid Stim Hormone (TSH)on 12-18-2024 TSH 1.990 uIU/mL Normal 0.300-4.200 [facility] Comment on above: Performed By: #### L 501.9520, L3100.5310, L500.4100, L100.0600, L3100.5125, L3100.5170, L3300.1750, L3100.5060, L501.9910, L3300.1500, L3100.5400, L500.4050 #### [facility] [place], [place], [id number] Total proteinOrdered By: Michael Polanco on 12-18-2024 Protein [Mass/Vol] 7.2 g/dL 5.9-8.4 [facility] Triglycerides measurementOrd ered By: Keven Polanco on 12-18-2024 Triglyceride [Mass/Vol] 66 mg/dL <199 [facility] Comment on above: The drugs N-Acetylcy steine and Metamizole may falsely depress this assay. Normal range: <150 mg/dLBorderline High: 150-199 mg/dLHigh: 200-499 mg/dLVery High: >500 mg/dL CNOVon 10-14-2024 CNOV Office Visit ([facility] ) -------- ROSHAN BELLO ([id number]) 1990 M Date Time Provider Department 10/14/24 9:30 AM MAYA SANCHEZ During your visit today, we recorded the following information about you: Pulse Blood pressure 60/minute 109/68 Maya Sanchez, DO 10/14/2024 12:57 PM Signed [facility]GERY OUTPATIENT VISIT DATE October 14, 2024 OUTPATIENT VISIT TYPE ESTABLISHED SERVICE DATE: 10/14/2024 SERVICE TIME: 9:05 AM PRIMARY CARE PHYSICIAN: Leslie Baker MD HISTORY OF PRESENT ILLNESS: Mr. Bello is a 34 year old male who presents today for a vascular surgery follow-up visit right leg symptomatic varicose veins. He wears compression during the day. PAST MEDICAL HISTORY Diagnosis Date NEGATIVE MEDICAL HISTORY PAST SURGICAL HISTORY Procedure Laterality Date CHOLECYSTECTOMY HX 08/23/[address] Bennett LAPAROSCOPIC APPENDECTOMY 11/28/2016 SOCIAL HISTORY Social History Tobacco Use Smoking status: Never Smokeless tobacco: Former Types: Snuff Tobacco comments: former chew, quit in 2016 Vaping Use Vaping status: Never Used Substance Use Topics Alcohol use: Yes Alcohol/week: 1.0 - 2.0 standard drink of alcohol Types: 1 - 2 Cans of Beer (12oz) per week Comment: weekend Drug use: Never MEDICATIONS: MAGNESIUM GLYCINATE ORAL Take 2 tablets by mouth daily at bedtime. multivit-minerals/folic acid (MEN'S MULTIVITAMIN GUMMIES ORAL) Take by mouth. Adrenal support ALLERGIES: ALLERGIES No Known Allergies PHYSICAL EXAM: BP 109/68 (BP Site: Left Arm, BP Position: Sitting, BP Cuff Size: Extra Large Adult) Pulse 60 SpO2 97% Gen- no distress Ext- right medial calf varicose veins, edema, hyperpigmentation, distal medial malleolar region lipodermatosclerosis Diagnostic tests reviewed for today's visit: Most recent labs Most recent imaging Venous Reflux Testing RIGHT SIDE - DEEP VEINS Negative for acute deep vein thrombosis in vessels visualized. RIGHT SIDE - SUPERFICIAL VEINS Positive for valvular incompetency in the great saphenous vein. Varicosities arise at the knee and course through the medial calf to ankle. An incompetent hop weigher is noted distal calf. Negative for valvular incompetency in the small saphenous vein. IMPRESSION: Mr. Bello is a 34 year old male with symptomatic varicose veins . PLAN and RECOMMENDATIONS: CEAP CLASSIFICATION OF VENOUS DISEASE: CLINICAL C2: Varicose veins C3: Edema C4b: Lipodermatosclerosis or athrophie el S: Symptomatic, including ache, pain, tightness, skin irritation, heaviness, muscle cramps and other complaints attribultable to venous dysfunction ETIOLOGY Ep: Primary ANATOMIC As: Superficial veins PATHOPYSIOLOGIC Pr: Reflux INDICATION(S) FOR SURGERY: Right great saphenous vein reflux, Grade III-IV and Right painful varicose vein disease SIGNATURE: Maya Sanchez DO PATIENT NAME: Roshan Bello DATE: October 14, 2024 TIME: 9:05 AM Maya Sanchez DO 10/14/2024 9:21 AM Signed Your ultrasound showed reflux (valves not working as well) in your right greater saphenous vein. I would recommend a laser ablation to treat the vein. In the laser procedure, we get into the vein like starting an IV and place the laser catheter inside the vein. After we place the laser, we surround the vein with a numbing fluid. This fluid allows the vein to collapse onto the laser fiber and allows us to use less energy. Also the numbing fluid acts to absorb the heat from the laser. After we put in the numbing fluid, we activate the laser and close off the vein. This will help decrease the flow through the vein and make your leg feel better. You may notice the varicose veins decrease in size following the procedure. After the laser we will apply a compression stockings or wrap your leg with a compression wrap. You will get an ultrasound a week later. There are three big risks with the procedure- 1. Blood clot in the larger vein in your leg (DVT)- to prevent that we use ultrasound during the procedure and have you get an ultrasound a week later. Also we want you active and moving following the procedure. 2. Burn to your skin- we don't see this anymore since we use that numbing fluid. 3. Numbness on the inside portion of your leg- this is due to the heat from the laser irritating a nerve that travels with the vein. This typically will improve over time. Downtime is minimal following the procedure. We want you up and active. We do ask that you don't fly or take long car trips the week following the procedure. We need to submit the findings to the insurance company. Referring Provider: MAYA SANCHEZ [[id number]] Allergies As of Date: 10/14/2024 (No Known Allergies) Date Reviewed: 10/14/2024 Reviewed by: Mary Blank, OCCA - Fully Assess (more content not included)... Normal [facility] VENOUS INCOMPETENCY UNL V LABon 10-14-2024 VENOUS INCOMPETENCY UNL VAS LAB Non-Invasive Vascular Laboratory [facility] Venous Valvular Incompetency Unilateral - Right Date of service/time: 10/14/2024 8:04:28 AM Name: MR. ROSHAN BELLO Date of : 1990 Age: 34 years Gender: M Clinical Indication Lower extremity swelling, chronic venous insufficiency, varicose veins, spider veins, telangiectasia or reticular veins and discoloration in lower extremities. TECHNIQUE -------- A venous duplex ultrasound examination was performed, including grayscale imaging with compression maneuvers and color Doppler and spectral Doppler examination with augmentation maneuvers and response to respiration of the below mentioned veins. FINDINGS -------- Patient position reverse Trendelenburg 45 degrees. RIGHT SIDE Method of augmentation: manual. Common femoral vein Doppler: normal flow. Compression: normal. Femoral vein Doppler: normal flow. Compression: normal. Popliteal vein Doppler: normal flow. Compression: normal. Great saphenous vein Compression: normal. Small saphenous vein Compression: normal. RIGHT GREAT SAPHENOUS VEIN Saphenofemoral junction Valsalva reflux greater than or equal to 0.5 second. Size 0.91 cm. Proximal thigh Valsalva reflux greater than or equal to 0.5 second. Size 0.69 cm. Mid thigh Valsalva reflux greater than or equal to 0.5 second. Size 0.66 cm. Distal thigh Valsalva reflux greater than or equal to 0.5 second. Size 0.69 cm. At Knee Augmentation reflux greater than or equal to 0.5 second. Size 0.55 cm. Proximal calf Augmentation reflux none. Size 0.32 cm. Mid calf Augmentation reflux none. Size 0.32 cm. Distal calf Augmentation reflux none. Size 0.37 cm. RIGHT SMALL SAPHENOUS VEIN Proximal calf Augmentation reflux none. Size 0.32 cm. Mid calf Augmentation reflux none. Size 0.37 cm. Distal calf Augmentation reflux none. Size 0.28 cm. RIGHT BRANCHES AND PERFORATORS Varicosity knee crease Augmentation reflux greater than or equal to 0.5 second. Size 0.88 cm. Retail Store Clerk vein distal calf from a varicosity to the posterior tibial vein Augmentation reflux greater than or equal to 0.5 second. Size 0.72 cm. IMPRESSION RIGHT SIDE - DEEP VEINS Negative for acute deep vein thrombosis in vessels visualized. RIGHT SIDE - SUPERFICIAL VEINS Positive for valvular incompetency in the great saphenous vein. Varicosities arise at the knee and course through the medial calf to ankle. An incompetent hop weigher is noted distal calf. Negative for valvular incompetency in the small saphenous vein. Technologist: Zakia Miller RVT, RDNJ Ordering physician: MAYA SANCHEZ Interpreting physician: DANAE Means DO Final CC [facility] Medical Image : [id number] ID See Link below for Image [facility] -------- ROSHAN BELLO ([id number]) 1990 M Date Time Provider Department 09/03/24 5:30 PM CHATO DE GUZMAN [facility] During your visit today, we recorded the following information about you: Temperature Pulse Respiration Blood pressure 97.4 degrees 88/minute 16/minute 112/70 Weight 122.7 kg Chato De Guzman MD 09/03/2024 6:04 PM Signed Patient presents with: Chest Congestion: cough x 5 days HPI: Feeling sick for 6 days. His was diagnosed with pneumonia today. Positive symptoms: cough, Shortness of breath on stairs today, chest congestion, Negative symptoms: Chest pain, Sore throat, Sinus pressure, Nasal Congestion, Rhinorrhea, Fever, Chills, Headache, OTC: none MEDICATIONS: Current Outpatient Medications Medication Sig multivit-minerals/folic acid (MEN'S MULTIVITAMIN GUMMIES ORAL) Take by mouth. No current facility-administered medications for this visit. ALLERGIES: ALLERGIES No Known Allergies VITALS: BP 112/70 Pulse 88 Temp 36.3 ?C (97.4 ?F) Resp 16 Wt 122.7 kg (270 lb 8.1 oz) SpO2 96% BMI 35.47 kg/m? PHYSICAL EXAM: GEN: mildly ill appearing HEENT: PERRL, EOMI, conjunctiva clear Ears: canals clear. TMs without erythema, bulge, or effusion Sinuses: non-tender frontal sinus, non-tender maxillary sinuses Throat: moist mucous membranes, no erythema, no exudate Neck: supple, no thyromegaly, no lymphadenopathy HEART: regular rate, regular rhythm, no murmurs LUNGS: clear to auscultation, no wheezes or crackles, no increased WOB ASSESSMENT/PLAN: 1. Acute cough - ICD9: 786.2, ICD10: R05.1 - URI with bronchitis. Discussed CXR to rule out occult pneumonia; deferred for now. - Discussed supportive care treatment with rest, cold medicine, and analgesia. Follow up with worsening cough, worsening shortness of breath, increasing chest pain, or late onset fever. Chato De Guzman MD Allergies As of Date: 09/03/2024 (No Known Allergies) Date Reviewed: 09/03/2024 Reviewed by: Celina Leiva MA - Fully Assessed Reason for Visit: Chest Congestion [236] Cmt: cough x 5 days Primary Visit Diagnosis:Acute cough [R05.1] Prescriptions as of 09/03/2024 - multivit-minerals/folic acid (MEN'S MULTIVITAMIN GUMMIES ORAL) Take by mouth. Meds Comments as of 04/20/2023: Problem List As Of Date 09/03/2024 Noted Resolved NEGATIVE MEDICAL HISTORY [V999.96] Class 1 obesity due to excess calories without *08/18/2020 Elevated blood pressure reading in office witho*08/18/2020 JESSICA (obstructive sleep apnea) [G47.33] 09/27/2022 Level of Service: OFFICE/OUTPATIENT ESTABLISHED LOW [facility] 20 MIN [[id number]] Encounter Status:Closed by CHATO DE GUZMAN on 09/03/24 Normal [facility] ROSHAN BELLO ([id number]) 1990 Date Time Provider Department 08/08/24 CAROL [facility] During your visit today, we recorded the following information about you: Carol Cunningham APRN.NICO 08/08/2024 8:11 AM Addendum Can you please call the patient and let him know that I reviewed his lab results. Labs were all normal. I was attempting to order a special lab order set for clotting disorders, the test that was ran was for factor V. I wanted to verify that family history was factor V or was it factor X? Thank you. Carol Cunningham APRN.Angela Arzola LPN 08/08/2024 8:29 AM Signed Phoned patient left message to return call and ask to speak to a nurse. Mayte Young MA 08/11/2024 2:42 PM Signed Call to pt and notified him of message below. Pt states that his FHx was Factor V. Notified him that this was the test that was completed. Pt verbalized understanding. Mayte Young MA Allergies As of Date: 08/08/2024 (No Known Allergies) Date Reviewed: 07/29/2024 Reviewed by: Mary Blank OCCA - Fully Assessed Reason for Visit: Results [95] Cmt: Labs Prescriptions as of 08/11/2024 - multivit-minerals/folic acid (MEN'S MULTIVITAMIN GUMMIES ORAL) Take by mouth. Meds Comments as of 04/20/2023: Problem List As Of Date 08/08/2024 Noted Resolved NEGATIVE MEDICAL HISTORY [V999.96] Class 1 obesity due to excess calories without *08/18/2020 Elevated blood pressure reading in office witho*08/18/2020 JESSICA (obstructive sleep apnea) [G47.33] 09/27/2022 Encounter Status:Closed by MAYTE YOUNG on 08/11/24 [facility] Sugar 07-29-2024 CNOV Office Visit (VASSWS ) -------- ROSHAN BELLO ([id number]) 1990 Date Time Provider Department 07/29/24 8:00 AM MAYA SANCHEZ During your visit today, we recorded the following information about you: Pulse Blood pressure 71/minute 123/79 Maya Sanchez DO 07/29/2024 8:44 AM Signed [facility] DEPARTMENT OF VASCULAR SURGERY OUTPATIENT VISIT DATE July 29, 2024 OUTPATIENT VISIT TYPE CONSULTATION SERVICE DATE: 07/29/2024 SERVICE TIME: 8:06 AM PRIMARY CARE PHYSICIAN: Leslie Baker MD REFERRING PROVIDER: Carol Cunningham [address] [place] [id number] Consult requested for an opinion regarding the evaluation and treatment of the above. My final impression and recommendations will be communicated back to the requesting physician by way of the shared medical record or letter via US mail. CHIEF COMPLAINT: Patient presents with: New Patient History of Present Illness: Patient is a 34 year old White male presenting for consultation, evaluation and possible treatment of leg edema and discoloration. He has a significant family history of DVT, Factor V and varicose veins- mother. He stands for prolonged periods of time. He works at [employer]. He admits that it can be tender to touch. He has not tried compression. PAIN ASSESSMENT: PAIN EVALUATION No data found in the last 1 encounters. Duration of Symptoms: Progressive PAST MEDICAL HISTORY Diagnosis Date NEGATIVE MEDICAL HISTORY PAST SURGICAL HISTORY Procedure Laterality Date CHOLECYSTECTOMY HX 08/23/[address] Bennett LAPAROSCOPIC APPENDECTOMY 11/28/2016 SOCIAL HISTORY: Social History Tobacco Use Smoking status: Never Smokeless tobacco: Former Types: Snuff Tobacco comments: former chew, quit in 2016 Vaping Use Vaping status: Never Used Substance Use Topics Alcohol use: Yes Alcohol/week: 1.0 - 2.0 standard drink of alcohol Types: 1 - 2 Cans of Beer (12oz) per week Comment: weekend Drug use: Never FAMILY HISTORY Problem Relation Age of Onset Diabetes Maternal Grandfather Alzheimer's Disease Maternal Grandfather Blood Clots Mother 60 Cancer Paternal Grandfather unknown MEDICATIONS: multivit-minerals/folic acid (MEN'S MULTIVITAMIN GUMMIES ORAL) Take by mouth. ALLERGIES: ALLERGIES No Known Allergies REVIEW of SYSTEMS: Constitutional: No weight loss, malaise or fevers. HEENT: Negative for frequent or significant headaches, No changes in hearing or vision, no nose bleeds or other nasal problems Respiratory: Negative for cough, wheezing, or shortness of breath Cardiovascular: Negative for chest pain and Positive for leg swelling and palpitations Gatrointestinal: Negative for abdominal discomfort, blood in stools or black stools or change in bowel habits Genitourinary: No history of dysuria, frequency, or incontinence Musculoskeletal: Negative for back pain and muscle pain and Positive for joint pain Endocrine: Negative for cold or heat intolerance, polyuria, polydipsia and goiter Hematology/Lymphatic: Negative for prolonged bleeding, bruising easily or swollen nodes Neurologic: No history or headaches, syncope, paralysis, seizures or tremors Integumentary: Negative for lesions, rash, and itching. PHYSICAL EXAM: VITALS: There were no vitals taken for this visit. General: Alert, oriented, cooperative, healthy appearance Integumentary: Normal color, no rash, no lesions. HEENT: EOM, pupils equal, round and reactive. Cardiovascular: Pulse regular. Lungs: No chest deformities or chest wall tenderness. Abdomen: Not examined Extremities: Varicose veins- right medial calf and ankle, hyperpigmentation, spider veins right ankle and foot Neurological: AAOx3. Normal cognition and motor skills. Vascular: Dorsalis Pedal Right: Normal - Left: Normal Diagnostic tests reviewed for today's visit: Most recent labs Most recent imaging IMPRESSION: Mr. Bello is a 34 year old male with symptomatic varicose veins, C4 . PLAN and RECOMMENDATIONS: Discussed venous pathology with patient Recommend trial of compression stockings, elevation and exercise Will get venous reflux testing and follow up to discuss results Prescription provided for compression stockings 20-30 mmHg and instructed on use SIGNATURE: Maya Sanchez DO PATIENT NAME: Roshan Bello DATE: July 29, 2024 TIME: 8:06 AM Referring Provider: CAROL CUNNINGHAM [[id number]] Allergies As of Date: 07/29/2024 (No Known Allergies) Date Reviewed: 07/29/2024 Reviewed by: Mary Blank OCCA - Fully Assessed Reason for Visit: New Patient [172] Primary Visit Diagnosis:Symptomatic varicose veins of right lower extremity [I83.891] Other Visit Diagnoses:Swelling of lower leg [M79.89] Venous (peripheral) insufficiency [I87.2] Order(s):CONSULT TO VASCULAR SURGERY [9042] (more content not included)... Normal [facility] 07-25-2024 [facility] Telephone (ZAY) -------- ROSHAN BELLO ([id number]) 1990 M Date Time Provider Department 07/25/24 CAROL CUNNINGHAM During your visit today, we recorded the following information about you: Carol Cunningham APRN.CNP 07/25/2024 3:42 PM Signed Can you please call the patient and let him know that his ultrasound was negative for clot or vascular abnormality. I will be in touch with him once I review the rest of his lab results. I would like him to continue with compression socks and may follow-up with vascular surgery for further evaluation. Please let me know if he has any questions. Thank you. Carol Cunningham APRN.Tiara Posada RN 07/25/2024 3:51 PM Signed Pt called and is notified of providers results and instructions. Pt voices understanding. Tiara Lozada RN Allergies As of Date: 07/25/2024 (No Known Allergies) Date Reviewed: 07/24/2024 Reviewed by: Teresa Marcos LPN - Fully Assessed Reason for Visit: Results [95] Cmt: US DVT Prescriptions as of 07/25/2024 - multivit-minerals/folic acid (MEN'S MULTIVITAMIN GUMMIES ORAL) Take by mouth. Meds Comments as of 04/20/2023: Problem List As Of Date 07/25/2024 Noted Resolved NEGATIVE MEDICAL HISTORY [V999.96] Class 1 obesity due to excess calories without *08/18/2020 Elevated blood pressure reading in office witho*08/18/2020 JESSICA (obstructive sleep apnea) [G47.33] 09/27/2022 Encounter Status:Closed by TIARA LOZADA on 07/25/24 Normal [facility] US DVT LOWER RTon 07-25-2024 US DVT LOWER RT * * *Final Report* * * DATE OF EXAM: Jul 25 2024 1:50PM U 1007 - US DVT LOWER RT / PROCEDURE REASON: Swelling of lower leg * * * * Physician Interpretation * * * * EXAMINATION: RIGHT LOWER EXTREMITY DEEP VENOUS ULTRASOUND WITH DOPPLER IMAGING CLINICAL HISTORY: 34 years old Male with Swelling of lower leg TECHNIQUE: Grayscale with compression maneuvers, color Doppler and spectral Doppler imaging of the right proximal deep veins was performed. Grayscale with compression maneuvers of the peroneal and posterior tibial veins was performed. The right great and small saphenous veins were evaluated at their insertion to the deep system. The contralateral common femoral vein was imaged for comparison. Images were obtained and stored in a permanent archive. MQ: USLER_1 COMPARISON: None RESULT: RIGHT LOWER EXTREMITY PROXIMAL DEEP VEINS Distal External Iliac, Common Femoral and proximal Profunda Veins: Compression: Normal Doppler: Normal, spontaneous respirophasic flow. Normal response to augmentation. Femoral vein: Compression: Normal Doppler: Normal, spontaneous flow. Normal response to augmentation. Popliteal vein: Compression: Normal Doppler: Normal, spontaneous flow. Normal response to augmentation. CALF DEEP VEINS Peroneal veins: Limited visualization Posterior tibial veins: Limited visualization Gastrocnemius and Soleal veins: Not imaged. SUPERFICIAL VEINS Great saphenous: Patent and compressible at insertion into common femoral vein; not otherwise assessed. Small Saphenous: Patent and compressible in the proximal calf, not otherwise assessed. LEFT LOWER EXTREMITY (FOR COMPARISON) Common Femoral Vein: Compression: Normal Doppler: Normal, spontaneous respirophasic flow. Normal response to augmentation. IMPRESSION: Negative study for proximal DVT in the right lower extremity. Limited visualization of the calf veins. Negative study for superficial thrombophlebitis in the imaged segments of the right lower extremity. Wire Galvanizer: ERNESTO Transcribe Date/Time: Jul 25 2024 2:26P Dictated by : OMID NICOLAS DO This examination was interpreted and the report reviewed and electronically signed by: OMID NICOLAS DO on Jul 25 2024 2:29PM EST [id number] Normal [facility] Lower extremity vein - [facility] 07-25-2024 IMPRESSION: Negative study for proximal DVT in the right lower extremity. Limited visualization of the calf veins. Negative study for superficial thrombophlebitis in the imaged segments of the right lower extremity. Wire Galvanizer: ERNESTO Transcribe Date/Time: Jul 25 2024 2:26P Dictated by : OMID NICOLAS DO This examination was interpreted and the report reviewed and electronically signed by: OMID NICOLAS DO on Jul 25 2024 2:29PM EST DIVISION OF RADIOLOGY * * *Final Report* * * DATE OF EXAM: Jul 25 2024 1:50PM [facility] 1007 - US DVT LOWER RT / PROCEDURE REASON: Swelling of lower leg * * * * Physician Interpretation * * * * EXAMINATION: RIGHT LOWER EXTREMITY DEEP VENOUS ULTRASOUND WITH DOPPLER IMAGING CLINICAL HISTORY: 34 years old Male with Swelling of lower leg TECHNIQUE: Grayscale with compression maneuvers, color Doppler and spectral Doppler imaging of the right proximal deep veins was performed. Grayscale with compression maneuvers of the peroneal and posterior tibial veins was performed. The right great and small saphenous veins were evaluated at their insertion to the deep system. The contralateral common femoral vein was imaged for comparison. Images were obtained and stored in a permanent archive. MQ: USLER_1 COMPARISON: None RESULT: RIGHT LOWER EXTREMITY PROXIMAL DEEP VEINS Distal External Iliac, Common Femoral and proximal Profunda Veins: Compression: Normal Doppler: Normal, spontaneous respirophasic flow. Normal response to augmentation. Femoral vein: Compression: Normal Doppler: Normal, spontaneous flow. Normal response to augmentation. Popliteal vein: Compression: Normal Doppler: Normal, spontaneous flow. Normal response to augmentation. CALF DEEP VEINS Peroneal veins: Limited visualization Posterior tibial veins: Limited visualization Gastrocnemius and Soleal veins: Not imaged. SUPERFICIAL VEINS Great saphenous: Patent and compressible at insertion into common femoral vein; not otherwise assessed. Small Saphenous: Patent and compressible in the proximal calf, not otherwise assessed. LEFT LOWER EXTREMITY (FOR COMPARISON) Common Femoral Vein: Compression: Normal Doppler: Normal, spontaneous respirophasic flow. Normal response to augmentation. DIVISION OF RADIOLOGY [facility] * * *Final Report* * * DATE OF EXAM: Jul 25 2024 1:50PM [facility] 1007 - US DVT LOWER RT / PROCEDURE REASON: Swelling of lower leg * * * * Physician Interpretation * * * * EXAMINATION: RIGHT LOWER EXTREMITY DEEP VENOUS ULTRASOUND WITH DOPPLER IMAGING CLINICAL HISTORY: 34 years old Male with Swelling of lower leg TECHNIQUE: Grayscale with compression maneuvers, color Doppler and spectral Doppler imaging of the right proximal deep veins was performed. Grayscale with compression maneuvers of the peroneal and posterior tibial veins was performed. The right great and small saphenous veins were evaluated at their insertion to the deep system. The contralateral common femoral vein was imaged for comparison. Images were obtained and stored in a permanent archive. MQ: USLER_1 COMPARISON: None RESULT: RIGHT LOWER EXTREMITY PROXIMAL DEEP VEINS Distal External Iliac, Common Femoral and proximal Profunda Veins: Compression: Normal Doppler: Normal, spontaneous respirophasic flow. Normal response to augmentation. Femoral vein: Compression: Normal Doppler: Normal, spontaneous flow. Normal response to augmentation. Popliteal vein: Compression: Normal Doppler: Normal, spontaneous flow. Normal response to augmentation. CALF DEEP VEINS Peroneal veins: Limited visualization Posterior tibial veins: Limited visualization Gastrocnemius and Soleal veins: Not imaged. SUPERFICIAL VEINS Great saphenous: Patent and compressible at insertion into common femoral vein; not otherwise assessed. Small Saphenous: Patent and compressible in the proximal calf, not otherwise assessed. LEFT LOWER EXTREMITY (FOR COMPARISON) Common Femoral Vein: Compression: Normal Doppler: Normal, spontaneous respirophasic flow. Normal response to augmentation. IMPRESSION IMPRESSION: Negative study for proximal DVT in the right lower extremity. Limited visualization of the calf veins. Negative study for superficial thrombophlebitis in the imaged segments of the right lower extremity. Wire Galvanizer: ERNESTO Transcribe Date/Time: Jul 25 2024 2:26P Dictated by : OMID NICOLAS DO This examination was interpreted and the report reviewed and electronically signed by: OMID NICOLAS DO on Jul 25 2024 2:29PM EST [facility] Radiology Study observation (narrative) [facility] US Lower extremity vein - ri ghtOrdered By: Ccf Provider on 07-25-2024 [facility] CBC W Auto Differential pane l (Bld)on 07-24-2024 Basophils (Bld) [#/Vol] 0.07 10*3/uL Normal <0.11 [facility] Comment on above: Order Comment: Speci men Type: BLOOD SPECIMENOrdering Facility: [facility] Address: [address] [place] [address] Performed By: #### 5 7021-8 ####[facility] LABCLIA [id number] [place] [address] [place] Basophils/100 WBC (Bld) 0.8 % Normal [facility] Comment on above: Order Comment: Speci men Type: BLOOD SPECIMENOrdering Facility: [facility] Address: [address] [place] [address] Performed By: #### 5 7021-8 ####[facility] LABCLIA [id number] [place] [address] [place] Differential cell count method Nom (Bld) Auto Normal [facility] Comment on above: Order Comment: Speci men Type: BLOOD SPECIMENOrdering Facility: [facility] Address: [address] [place] [address] Performed By: #### 5 7021-8 ####[facility] LABCLIA [id number] [place] [address] [place] Eosinophils (Bld) [#/Vol] 0.64 10*3/uL High <0.46 [facility] Comment on above: Order Comment: Speci men Type: BLOOD SPECIMENOrdering Facility: [facility] Address: [address] [place] [address] Performed By: #### 5 7021-8 ####[facility] LABCLIA [id number] [place] [address] [place] Eosinophils/100 WBC (Bld) 6.9 % Normal [facility] Comment on above: Order Comment: Speci men Type: BLOOD SPECIMENOrdering Facility: [facility] Address: [address] [place] [address] Performed By: #### 5 7021-8 ####[facility] LABCLIA [id number] [place] [address] [place] Erythrocyte distribution width (RBC) [Ratio] 13.2 % Normal 11.5-15.0 [facility] Comment on above: Order Comment: Speci men Type: BLOOD SPECIMENOrdering Facility: [facility] Address: [address] [place] [address] Performed By: #### 5 7021-8 ####[facility] LABCLIA [id number] [place] [address] [place] Hematocrit (Bld) [Volume fraction] 48.1 % Normal 39.0-51.0 [facility] Comment on above: Order Comment: Speci men Type: BLOOD SPECIMENOrdering Facility: [facility] Address: [address] [place] [address] Performed By: #### 5 7021-8 ####[facility] LABCLIA [id number] [place] [address] [place] Hemoglobin (Bld) [Mass/Vol] 15.7 g/dL Normal 13.0-17.0 [facility] Comment on above: Order Comment: Speci men Type: BLOOD SPECIMENOrdering Facility: [facility] Address: [address] [place] [address] Performed By: #### 5 7021-8 ####[facility] LABCLIA [id number] [place] [address] [place] Immature granulocytes (Bld) [#/Vol] 10*3/uL Normal <0.10 [facility] Comment on above: Order Comment: Speci men Type: BLOOD SPECIMENOrdering Facility: [facility] Address: [address] [place] [address] Performed By: #### 5 7021-8 ####[facility] LABCLIA [id number] [place] [address] [place] Immature granulocytes/100 WBC (Bld) 0.1 % Normal [facility] Comment on above: Order Comment: Speci men Type: BLOOD SPECIMENOrdering Facility: [facility] Address: [address] [place] [address] Performed By: #### 5 7021-8 ####[facility] LABCLIA [id number] [place] [address] [place] Lymphocytes (Bld) [#/Vol] 3.38 10*3/uL Normal 1.00-4.00 [facility] Comment on above: Order Comment: Speci men Type: BLOOD SPECIMENOrdering Facility: [facility] Address: [address] [place] [address] Performed By: #### 5 7021-8 ####[facility] LABCLIA [id number] [place] [address] [place] Lymphocytes/100 WBC (Bld) 36.6 % Normal [facility] Comment on above: Order Comment: Speci men Type: BLOOD SPECIMENOrdering Facility: [facility] Address: [address] [place] [address] Performed By: #### 5 7021-8 ####[facility] LABIA [id number] [place] [address] [place] MCH (RBC) [Entitic mass] 28.3 pg Normal 26.0-34.0 [facility] Comment on above: Order Comment: Speci men Type: BLOOD SPECIMENOrdering Facility: [facility] Address: [address] [place] [address] Performed By: #### 5 7021-8 ####[facility] [id number] [place] [address] [place] MCHC (RBC) [Mass/Vol] 32.6 g/dL Normal 30.5-36.0 [facility] Comment on above: Order Comment: Speci men Type: BLOOD SPECIMENOrdering Facility: [facility] Address: [address] [place] [address] Performed By: #### 5 7021-8 ####[facility] [id number] [place] [address] [place] MCV (RBC) [Entitic vol] 86.7 fL Normal 80.0-100.0 [facility] Comment on above: Order Comment: Speci men Type: BLOOD SPECIMENOrdering Facility: [facility] Address: [address] [place] [address] Performed By: #### 5 7021-8 ####[facility] LABIA [id number] [place] [address] [place] Monocytes (Bld) [#/Vol] 0.73 10*3/uL Normal <0.87 [facility] Comment on above: Order Comment: Speci men Type: BLOOD SPECIMENOrdering Facility: [facility] Address: [address] [place] [address] Performed By: #### 5 7021-8 ####[facility] LABIA [id number] [place] [address] [place] Monocytes/100 WBC (Bld) 7.9 % Normal [facility] Comment on above: Order Comment: Speci men Type: BLOOD SPECIMENOrdering Facility: [facility] Address: [address] [place] [address] Performed By: #### 5 7021-8 ####[facility] LABCLIA [id number] [place] [address] [place] Neutrophils (Bld) [#/Vol] 4.40 10*3/uL Normal 1.45-7.50 [facility] Comment on above: Order Comment: Speci men Type: BLOOD SPECIMENOrdering Facility: [facility] Address: [address] [place] [address] Performed By: #### 5 7021-8 ####[facility] LABCLIA [id number] [place] [address] [place] Neutrophils/100 WBC (Bld) 47.7 % Normal [facility] Comment on above: Order Comment: Speci men Type: BLOOD SPECIMENOrdering Facility: [facility] Address: [address] [place] [address] Performed By: #### 5 7021-8 ####[facility] LABCLIA [id number] [place] [address] [place] Nucleated RBC (Bld) [#/Vol] 10*3/uL Normal <0.01 [facility] Comment on above: Order Comment: Speci men Type: BLOOD SPECIMENOrdering Facility: [facility] Address: [address] [place] [address] Performed By: #### 5 7021-8 ####[facility] LABCLIA [id number] [place] [address] [place] [place] Nucleated RBC/100 WBC (Bld) [Ratio] 0.0 /100 WBC Normal [facility] Comment on above: Order Comment: Speci men Type: BLOOD SPECIMENOrdering Facility: [facility] Address: [address] [place] [address] Performed By: #### 5 7021-8 ####[facility] LABCLIA [id number] [place] [address] [place] Platelet mean volume (Bld) [Entitic vol] 9.5 fL Normal 9.0-12.7 [facility] Comment on above: Order Comment: Speci men Type: BLOOD SPECIMENOrdering Facility: [facility] Address: [address] [place] [address] Performed By: #### 5 7021-8 ####[facility] LABIA [id number] [place] [address] [place] Platelets (Bld) [#/Vol] 245 10*3/uL Normal 150-400 [facility] Comment on above: Order Comment: Speci men Type: BLOOD SPECIMENOrdering Facility: [facility] Address: [address] [place] [address] Performed By: #### 5 7021-8 ####[facility] LABIA [id number] [place] [address] [place] RBC (Bld) [#/Vol] 5.55 10*6/uL Normal 4.20-6.00 [facility] Comment on above: Order Comment: Speci men Type: BLOOD SPECIMENOrdering Facility: [facility] Address: [address] [place] [address] Performed By: #### 5 7021-8 ####[facility] LABCLIA [id number] [place] [id number] [place] WBC (Bld) [#/Vol] 9.23 10*3/uL Normal 3.70-11.00 [facility] Comment on above: Order Comment: Speci men Type: BLOOD SPECIMENOrdering Facility: [facility] Address: [address] [place] [address] Performed By: #### 5 7021-8 ####[facility] BRYANT [id number] [facility]ENTER[facility] [place] [id number] [place] CNOVon 07-24-2024 [facility] -------- ROSHAN BELLO ([id number]) 1990 M Date Time Provider Department 07/24/24 2:40 PM [facility] During your visit today, we recorded the following information about you: Pulse Respiration Blood pressure Weight 71/minute 16/minute 130/87 122.4 kg Carol Cunningham APRN.CNP 07/24/2024 4:04 PM Signed This is a 34 year old male who presents today with: Patient presents with: Acute Visit: right ankle swollen and bruised HISTORY OF PRESENT ILLNESS: Roshan Bello is a 34 year old male. Patient presents with: Acute Visit: right ankle swollen and bruised Right ankle swelling, started about 1 year ago. No injury to the area. Not painful. Noticed some varicose veins. Ankle seems to be swollen. Swelling seems to be constant. No difficulty getting shoe on and no difficulty walking. Mother just diagnosed with DVT. Family history of factor V. PAST MEDICAL HISTORY: PAST MEDICAL HISTORY Diagnosis Date NEGATIVE MEDICAL HISTORY PAST SURGICAL HISTORY Procedure Laterality Date CHOLECYSTECTOMY HX 08/23/[address] Bennett LAPAROSCOPIC APPENDECTOMY 11/28/2016 ALLERGIES Patient has no known allergies. MEDICATIONS Current Outpatient Medications Medication Sig multivit-minerals/folic acid (MEN'S MULTIVITAMIN GUMMIES ORAL) Take by mouth. No current facility-administered medications for this visit. FAMILY HISTORY Problem Relation Age of Onset Diabetes Maternal Grandfather Alzheimer's Disease Maternal Grandfather Blood Clots Mother 60 Cancer Paternal Grandfather unknown Social History Tobacco Use Smoking status: Never Smokeless tobacco: Former Types: Snuff Tobacco comments: former chew, quit in 2016 Vaping Use Vaping status: Never Used Substance Use Topics Alcohol use: Yes Alcohol/week: 1.0 - 2.0 standard drink of alcohol Types: 1 - 2 Cans of Beer (12oz) per week Comment: weekend Drug use: Never REVIEW OF SYSTEMS GENERAL: No weight loss, malaise or fevers/chills HEENT: Negative for frequent or significant headaches, No changes in hearing or vision. NECK: Negative for lumps, goiter, pain and significant neck swelling RESPIRATORY: Negative for cough, hemoptysis, wheezing, dyspnea or shortness of breath CARDIOVASCULAR: Negative for chest pain, leg swelling, orthopnea, or palpitations GI: No nausea, vomiting, or diarrhea/constipation. No hematochezia/melena. No heartburn or reflux symptoms. : No history of dysuria, frequency or incontinence MUSCULOSKELETAL: + Ankle swelling SKIN: Negative for lesions, rash, and itching ENDOCRINE: Negative for cold or heat intolerance, polyuria, polydipsia and goiter NEURO: No history of headaches, syncope, paralysis, seizures or tremors MOOD: Negative for depression, anxiety, or suicidal ideation. EXAM: BP 130/87 Pulse 71 Resp 16 Wt 122.4 kg (269 lb 13.5 oz) SpO2 97% BMI 35.38 kg/m? PHYSICAL EXAM: General Appearance: Well appearing, alert, in no acute distress, well-hydrated, well nourished. Skin: Skin color, texture, turgor normal, no suspicious rashes or lesions. Head: Normocephalic, no masses, lesions, tenderness or abnormalities. Eyes: Anicteric sclera. Extraocular movements are intact. Extremities: +1 non-pitting edema noted to right lower leg, ruddiness, varicose veins noted, good pedal pulses, negative homans sign. Musculoskeletal: No joint swelling, deformity, or tenderness. Full ROM of feet/ankles bilaterally, non-tender. Peripheral Pulses: Normal, Capillary refill <2secs, strong peripheral pulses, Pulses palpable. Neurologic: Gait normal. Reflexes normal and symmetric. Sensation grossly intact. ASSESSMENT/PLAN: 1. Swelling of lower leg - ICD9: 729.81, ICD10: M79.89 (primary diagnosis) - Get labs and US completed due to family history. - Recommend wearing compression socks. - Consult placed for vascular surgery - Red flag symptoms given to patient, he verbalizes understanding when to seek care - US LEG VEIN DVT UNL VAS LAB - COMPLETE BLOOD COUNT AND DIFFERENTIAL - CONSULT TO VASCULAR SURGERY - US DVT LOWER RIGHT 2. Family history of factor V deficiency - ICD9: V18.3, ICD10: Z83.2 - FACTOR V LEIDEN/PCR - COMPLETE BLOOD COUNT AND DIFFERENTIAL Follow-up pending test results or sooner as needed. Discussed treatment plan and patient voices understanding. Patient's questions answered appropriately. Medications and potential side effects were discussed and patient voices understanding. Carol Cunningham APRN.NICO This note was partially generated using Visualase voice recognition system. Note was reviewed for accuracy. There may be minor misspellings or grammar miscues with Visualase voice recognition. Carol Cunningham APRN.CNP 07/24/2024 2:57 PM Signed Get labs and ultrasound completed Consult placed for vascular surgery, Dr. Sanchez Recommend using compression so (more content not included)... Normal [facility] FACTOR V LEIDEN/PCRon 2023 FACTOR V LEIDEN PCR REPORT Normal [facility] Comment on above: Order Comment: Speci men Type: BLOOD SPECIMENOrdering Facility: [facility] Address: [address] [place] [address] Result Comment: Fact or V Leiden PCR Laboratory Accession Number: [id number] Result: NEGATIVE Interpretation: The DNA sample is negative for the c.1601G>A variant (legacy name R506Q) in the Factor V (F5) gene. This variant is commonly known as Factor V Leiden. This result is not associated with an increased risk of thromboembolic disease. The Factor V Leiden assay will not detect individuals with activated protein C resistance who do not have the c.1601G>A variant (less than 5% of those with activated protein C resistance). These individuals may be identified by ordering the functional assay for Activated Protein C Resistance. Thromboembolic disease is a multifactorial disorder, and other causes are not excluded by this result. Methodology: Isolated genomic DNA from the patient's blood specimen is evaluated for the c.1601G>A (p.[id number]) variant of the F5 gene [RefSeq [id number]; GRCh38/hg38] by multiplex polymerase chain reaction (PCR) followed by melting curve analysis. Limitations: This assay is designed to detect the c.1601G>A variant in the F5 gene. Uncommon variants or single nucleotide polymorphisms may affect binding of probes and may rarely result in false negative, false positive or indeterminate results. This assay does not detect other disease-associated rare variants on F5 or other causes of thromboembolic disease. Disclaimer: This test was developed and its performance characteristics determined by [facility]'s Pathology and Laboratory Medicine Department. It has not been cleared or approved by the FDA. [facility]'s Pathology and Laboratory Medicine Department is regulated under CLIA as certified to perform high-complexity testing. This test is used for clinical purposes. It should not be regarded as investigational or for research. Testing and interpretation performed at [facility], [address] [place] [address]. CLIA Number: [id number] References: 1) Agnes Cook, Farzad G, Toan Matos. The genetics of venous thromboembolism. A meta-analysis involving approximately 120,000 cases and 180,000 controls. Thromb Haemost 2009;102(2):360-70. 2) Inherited Thrombophilias in . ACOG Practice Bulletin.No.197.[employer]. Obstet Gynecol 2018;132:e18-34. 3) Yasemin AGUIRRE. Factor V Leiden Thrombophilia. Radha Med.2011;13(1):1-16. 4) Pharmacogenomics summary [email or web address] As reviewed by Steffanie Davis, PhD, [facility] Performed By: #### F VLEI ####[facility] [id number] [address] [place] CBC W Auto Differential pane l (Bld)on 12-31-2023 Basophils (Bld) [#/Vol] 0.05 10*3/uL <0.11 k/uL [facility] Basophils/100 WBC (Bld) 0.7 % [facility] Differential cell count method Nom (Bld) Auto [facility] Eosinophils (Bld) [#/Vol] 0.32 10*3/uL <0.46 k/uL [facility] Eosinophils/100 WBC (Bld) 4.3 % [facility] Erythrocyte distribution width (RBC) [Ratio] 13.4 % 11.5 - 15.0 % [facility] Hematocrit (Bld) [Volume fraction] 48.0 % 39.0 - 51.0 % [facility] Hemoglobin (Bld) [Mass/Vol] 15.6 g/dL 13.0 - 17.0 g/dL [facility] Immature granulocytes (Bld) [#/Vol] <0.10 k/uL [facility] Immature granulocytes/100 WBC (Bld) 0.3 % [facility] Lymphocytes (Bld) [#/Vol] 3.10 10*3/uL 1.00 - 4.00 k/uL [facility] Lymphocytes/100 WBC (Bld) 41.9 % [facility] MCH (RBC) [Entitic mass] 28.4 pg 26.0 - 34.0 pg [facility] MCHC (RBC) [Mass/Vol] 32.5 g/dL 30.5 - 36.0 g/dL [facility] MCV (RBC) [Entitic vol] 87.4 fL 80.0 - 100.0 fL [facility] Monocytes (Bld) [#/Vol] 0.74 10*3/uL <0.87 k/uL [facility] Monocytes/100 WBC (Bld) 10.0 % [facility] Neutrophils (Bld) [#/Vol] 3.16 10*3/uL 1.45 - 7.50 k/uL [facility] Neutrophils/100 WBC (Bld) 42.8 % [facility] Nucleated RBC (Bld) [#/Vol] <0.01 k/uL [facility] Nucleated RBC/100 WBC (Bld) [Ratio] 0.0 /100 WBC [facility] Platelet mean volume (Bld) [Entitic vol] 9.3 fL 9.0 - 12.7 fL [facility] Platelets (Bld) [#/Vol] 231 10*3/uL 150 - 400 k/uL [facility] RBC (Bld) [#/Vol] 5.49 10*6/uL 4.20 - 6.0 0 m/uL [facility] WBC (Bld) [#/Vol] 7.39 10*3/uL 3.70 - 11. 00 k/uL [facility] Comprehensive metabolic 2000 panelon 12-31-2023 Albumin [Mass/Vol] 4.6 g/dL 3.9 - 4.9 g/dL [facility] ALP [Catalytic activity/Vol] 49 U/L 38 - 113 U/L [facility] ALT [Catalytic activity/Vol] 39 U/L 10 - 54 U/L [facility] Anion gap [Moles/Vol] 10 mmol/L 9 - 18 mmol/L [facility] AST [Catalytic activity/Vol] 29 U/L 14 - 40 U/L [facility] Bilirubin [Mass/Vol] 0.4 mg/dL 0.2 - 1 .3 mg/dL [facility] Calcium [Mass/Vol] 9.7 mg/dL 8.5 - 10. 2 mg/dL [facility] Chloride [Moles/Vol] 104 mmol/L 97 - 10 5 mmol/L [facility] CO2 [Moles/Vol] 26 mmol/L 22 - 30 mmol/L [facility] Creatinine [Mass/Vol] 0.92 mg/dL 0.73 - 1.22 mg/dL [facility] Estimated Glomerular Filtration Rate 112 mL/min/1.73m >=60 mL/min/1.73m [facility] Glucose [Mass/Vol] 86 mg/dL 74 - 99 mg/dL [facility] Potassium [Moles/Vol] 4.5 mmol/L 3.7 - 5.1 mmol/L [facility] Protein [Mass/Vol] 7.3 g/dL 6.3 - 8.0 g/dL [facility] Sodium [Moles/Vol] 140 mmol/L 136 - 144 mmol/L [facility] Urea nitrogen [Mass/Vol] 15 mg/dL 9 - 24 mg/dL [facility] FOLATE, SERUMon 12-31-2023 Folate [Mass/Vol] >4.7 ng/mL [facility] HbA1c (Bld)on 12-31-2023 Average glucose Estimated from glycated hemoglobin (Bld) [Mass/Vol] 114 mg/dL [facility] HbA1c (Bld) [Mass fraction] 5.6 % 4.3 - 5.6 % [facility] Iron and Iron binding capaci ty panelon 12-31-2023 Iron [Mass/Vol] 86 ug/dL 41 - 186 ug/dL [facility] Iron binding capacity [Mass/Vol] 283 ug/dL 232 - 386 ug/dL [facility] Iron/TIBC [Molar ratio] 30.4 % 15.0 - 57.0 % [facility] T4 FREE/FREE THYROXINEon Free T4 [Mass/Vol] 1.3 ng/dL 0.9 - 1.7 ng/dL [facility] THYROID STIMULATING HORMONEo n 12-31-2023 TSH Qn 1.410 m[IU]/L 0.270 - 4.200 mIU/L [facility] VITAMIN B12on 12-31-2023 Cobalamin (Vitamin B12) [Mass/Vol] 538 pg/mL 232 - 1,245 pg/mL [facility] VITAMIN D 25 HYDROXYon 12-30 25-hydroxyvitamin D3 [Mass/Vol] 38.2 ng/mL 31.0 - 80.0 ng/mL [facility] XR DIGIT GENERAL 3V FRONTAL/ LAT/OBL RIGHTon 08-17-2023 [facility] XR Finger - right AP and Lat eral and obliqueon 08-17-2023 IMPRESSION: Negative Wire Galvanizer: ERNESTO Transcribe Date/Time: Aug 17 2023 4:55P Dictated by : CECILIA MELTON MD This examination was interpreted and the report reviewed and electronically signed by: CECILIA MELTON MD on Aug 17 2023 4:56PM [facility] DIVISION OF RADIOLOGY * * *Final Report* * * DATE OF EXAM: Aug 17 2023 4:52PM WOX 5319 - XR DIGIT 3V FRONTAL/LAT/OBL RT / PROCEDURE REASON: Injury of index finger, initial encounter * * * * Physician Interpretation * * * * PROCEDURE: Right index finger INDICATION: Injury of index finger, initial encounter .Pinching laceration to skin of proximal right index finger TECHNIQUE: XR DIGIT 3V FRONTAL/LAT/OBL RT COMPARISON: None FINDINGS: No fractures or dislocations are seen. The bones, joint spaces and soft tissues are unremarkable. DIVISION OF RADIOLOGY [facility] * * *Final Report* * * DATE OF EXAM: Aug 17 2023 4:52PM WOX 5319 - XR DIGIT 3V FRONTAL/LAT/OBL RT / PROCEDURE REASON: Injury of index finger, initial encounter * * * * Physician Interpretation * * * * PROCEDURE: Right index finger INDICATION: Injury of index finger, initial encounter .Pinching laceration to skin of proximal right index finger TECHNIQUE: XR DIGIT 3V FRONTAL/LAT/OBL RT COMPARISON: None FINDINGS: No fractures or dislocations are seen. The bones, joint spaces and soft tissues are unremarkable. IMPRESSION IMPRESSION: Negative Wire Galvanizer: PSCB Transcribe Date/Time: Aug 17 2023 4:55P Dictated by : CECILIA MELTON MD This examination was interpreted and the report reviewed and electronically signed by: CECILIA MELTON MD on Aug 17 2023 4:56PM EST [facility] Radiology Study observation (narrative) [facility] XR Finger - right AP and Lat eral and obliqueOrdered By: Ccf Provider on 08-17-2023 [facility] XR FOOT GENERAL 3V AP/LAT/OB L RIGHTon 04-20-2023 [facility] XR Foot - right AP and Later al and obliqueon 04-20-2023 IMPRESSION: No acute osseous abnormality Wire Galvanizer: ERNESTO Transcribe Date/Time: Apr 20 2023 10:05A Dictated by : DEJA HO MD This examination was interpreted and the report reviewed and electronically signed by: DEJA HO MD on Apr 20 2023 10:07AM [facility] DIVISION OF RADIOLOGY * * *Final Report* * * DATE OF EXAM: Apr 20 2023 9:34AM WOX 5337 - XR FOOT 3V AP/LAT/OBL RT / PROCEDURE REASON: Foot pain, right * * * * Physician Interpretation * * * * EXAMINATION: XR FOOT 3V AP/LAT/OBL RT CLINICAL HISTORY: Right foot pain Technique: XR FOOT 3V AP/LAT/OBL RT -- RIGHT with 3 views on 3 images Comparison: None RESULT: No acute fracture or dislocation. Joint spaces are maintained. DIVISION OF RADIOLOGY Provider, [facility] - 04/20/2023 * * *Final Report* * * DATE OF EXAM: Apr 20 2023 9:34AM WOX 5337 - XR FOOT 3V AP/LAT/OBL RT / PROCEDURE REASON: Foot pain, right * * * * Physician Interpretation * * * * EXAMINATION: XR FOOT 3V AP/LAT/OBL RT CLINICAL HISTORY: Right foot pain Technique: XR FOOT 3V AP/LAT/OBL RT -- RIGHT with 3 views on 3 images Comparison: None RESULT: No acute fracture or dislocation. Joint spaces are maintained. IMPRESSION IMPRESSION: No acute osseous abnormality Wire Galvanizer: [facility] Transcribe Date/Time: Apr 20 2023 10:05A Dictated by : DEJA HO MD This examination was interpreted and the report reviewed and electronically signed by: DEJA HO MD on Apr 20 2023 10:07AM EST [facility] Radiology Study observation (narrative) [facility] XR Foot - right AP and Later al and obliqueOrdered By: Ccf Provider on 04-20-2023 [facility] XR Ankle - right AP and Late ral and obliqueon 06-20-2021 IMPRESSION: Soft tissue swelling with small ankle joint effusion but no radiographic evidence of acute osseous injury. Wire Galvanizer: [facility] Transcribe Date/Time: Jun 20 2021 9:22A Dictated by : LEANDER TUTTLE MD This examination was interpreted and the report reviewed and electronically signed by: LEANDER TUTTLE MD on Jun 20 2021 9:23AM EST DIVISION OF RADIOLOGY * * *Final Report* * * DATE OF EXAM: Jun 20 2021 9:19AM WOX 5297 - XR ANKLE 3V AP/LAT/OBL RT / PROCEDURE REASON: Acute right ankle pain * * * * Physician Interpretation * * * * CLINICAL INDICATION: Ankle pain TECHNIQUE: 3 view radiographic study of the right ankle COMPARISON: None FINDINGS: Soft tissue swelling surrounding the ankle with small ankle joint effusion. No acute fracture or dislocation identified. Small dorsal and plantar calcaneal enthesophytes. DIVISION OF RADIOLOGY Provider, [facility] - 06/20/2021 * * *Final Report* * * DATE OF EXAM: Jun 20 2021 9:19AM WOX 5297 - XR ANKLE 3V AP/LAT/OBL RT / PROCEDURE REASON: Acute right ankle pain * * * * Physician Interpretation * * * * CLINICAL INDICATION: Ankle pain TECHNIQUE: 3 view radiographic study of the right ankle COMPARISON: None FINDINGS: Soft tissue swelling surrounding the ankle with small ankle joint effusion. No acute fracture or dislocation identified. Small dorsal and plantar calcaneal enthesophytes. IMPRESSION IMPRESSION: Soft tissue swelling with small ankle joint effusion but no radiographic evidence of acute osseous injury. Wire Galvanizer: [facility] Transcribe Date/Time: Jun 20 2021 9:22A Dictated by : LEANDER TUTTLE MD This examination was interpreted and the report reviewed and electronically signed by: LEANDER TUTTLE MD on Jun 20 2021 9:23AM EST [facility] Radiology Study observation (narrative) [facility] XR Ankle - right AP and Late ral and obliqueOrdered By: Ccf Provider on 06-20-2021 [facility] Vital Signs Date Time Vital Sign Value Performing Clinician Roberto Carlos andrews 04-20-2025 17:00-0400 Body temperature 98 [degF] Shonnatoro HarmonDinesh [employer] Work Phone: 2(816)871-843206 [place] [address] 04-20-2025 17:00-0400 Diastolic blood pressure 74 mm[Hg] Shonna Dinesh [employer] Work Phone: 5(438)282-75500[address] [place] [address] 04-20-2025 17:00-0400 Heart rate 75 /min Shonna Dinesh [employer] Work Phone: 6(898)[phone] [place] [address] 04-20-2025 17:00-0400 Respiratory rate 18 /min Shonna Dinesh [employer] Work Phone: 3(215)417-180206 [place] [address] 04-20-2025 17:00-0400 SaO2% (BldA) [Mass fraction] 100 % Shonna Dinesh [employer] Work Phone: [facility] 04-20-2025 17:00-0400 Systolic blood pressure 137 mm[Hg] Shonna Dinesh [employer] Work Phone: 2([phone])[phone] [place] [address] 04-20-2025 12:39-0400 Body height 187.96 cm Shonna Dinesh [employer] Work Phone: 2(662)[phone] [place] [address] 04-20-2025 12:39-0400 Body mass index (BMI) [Ratio] 31.6 kg/m2 Shonna Dinesh [employer] Work Phone: 5(903)[phone] [place] [address] 04-20-2025 12:39-0400 Body weight 111.58 kg Shonna Dinesh [employer] Work Phone: 3(066)[phone] [place] [address] 10-14-2024 08:34-0500 Diastolic blood pressure 68 mm[Hg] Maya Sanchez DO Work Phone: [facility] 10-14-2024 08:34-0500 Heart rate 60 /min Maya Sanchez DO Work Phone: [facility] 10-14-2024 08:34-0500 SaO2% (BldA) [Mass fraction] 97 % Maya Sanchez DO Work Phone: [facility] 10-14-2024 08:34-0500 Systolic blood pressure 109 mm[Hg] Maya Sanchez DO Work Phone: [facility] 09-03-2024 17:51-0500 Body mass index (BMI) [Ratio] 35.47 kg/m2 Chato De Guzman MD Work Phone: [facility] 09-03-2024 17:51-0500 Body temperature 97.39 [degF] Chato De Guzman MD Work Phone: [facility] 09-03-2024 17:51-0500 Body weight 122.7 kg Chato De Guzman MD Work Phone: [facility] 09-03-2024 17:51-0500 Diastolic blood pressure 70 mm[Hg] Chato De Guzman MD Work Phone: [facility] 09-03-2024 17:51-0500 Heart rate 88 /min Chato De Guzman MD Work Phone: [facility] 09-03-2024 17:51-0500 Respiratory rate 16 /min Chato De Guzman MD Work Phone: [facility] 09-03-2024 17:51-0500 SaO2% (BldA) [Mass fraction] 96 % Chato De Guzman MD Work Phone: [facility] 09-03-2024 17:51-0500 Systolic blood pressure 112 mm[Hg] Chato De Guzman MD Work Phone: [facility] 07-29-2024 08:06-0500 Diastolic blood pressure 79 mm[Hg] Maya Sanchez DO Work Phone: [facility] 07-29-2024 08:06-0500 Heart rate 71 /min Maya Sanchez DO Work Phone: [facility] 07-29-2024 08:06-0500 SaO2% (BldA) [Mass fraction] 98 % Maya Sanchez DO Work Phone: [facility] 07-29-2024 08:06-0500 Systolic blood pressure 123 mm[Hg] Maya Sanchez DO Work Phone: [facility] 07-24-2024 14:36-0500 Body mass index (BMI) [Ratio] 35.38 kg/m2 Caroldara Brownhof [employer] Work Phone: [facility] 07-24-2024 14:36-0500 Body weight 122.4 kg Carol Brownhof [employer] Work Phone: [facility] 07-24-2024 14:36-0500 Diastolic blood pressure 87 mm[Hg] Carol Tannhof [employer] Work Phone: [facility] 07-24-2024 14:36-0500 Heart rate 71 /min Carol Brownhof [employer] Work Phone: [facility] 07-24-2024 14:36-0500 Respiratory rate 16 /min Carol Brownhof [employer] Work Phone: [facility] 07-24-2024 14:36-0500 SaO2% (BldA) [Mass fraction] 97 % Caroldara Brownhof [employer] Work Phone: [facility] [facility] 07-24-2024 14:36-0500 Systolic blood pressure 130 mm[Hg] Carol Tannhof [employer]MAN[employer] PROGRAM ASSOCIATE Work Phone: [facility] 12-31-2023 09:16-0400 Body weight 119.75 kg Caroldara Brownhof [employer]GRAM ASSOCIATE Work Phone: [facility] 12-31-2023 09:16-0400 Diastolic blood pressure 80 mm[Hg] Carol Tannhof [employer] PROGRAM ASSOCIATE Work Phone: [facility] 12-31-2023 09:16-0400 Heart rate 70 /min Carol Tannhof [employer] PROGRAM ASSOCIATE Work Phone: [facility] 12-31-2023 09:16-0400 Respiratory rate 16 /min Carol Tannhof [employer]MAN[employer] PROGRAM ASSOCIATE Work Phone: [facility] 12-31-2023 09:16-0400 SaO2% (BldA) [Mass fraction] 97 % Carol Tannhof [employer]MAN[employer]CHO[employer] AGE PROGRAM ASSOCIATE Work Phone: [facility] 12-31-2023 09:16-0400 Systolic blood pressure 120 mm[Hg] Carol Tannhof [employer]MAN[employer] PROGRAM ASSOCIATE Work Phone: [facility] 11-26-2023 09:16-0400 Body temperature 97.81 [degF] Elton Pendlebury [employer]MAN[employer]GE PROGRAM ASSOCIATE Work Phone: [facility] 11-26-2023 09:16-0400 Body weight 116.9 kg Elton Pendlebury [employer]MAN[employer] PROGRAM ASSOCIATE Work Phone: [facility] 11-26-2023 09:16-0400 Diastolic blood pressure 76 mm[Hg] Elton Pendlebury [employer] PROGRAM ASSOCIATE Work Phone: [facility] 11-26-2023 09:16-0400 Heart rate 76 /min Elton Pendlebury [employer]MAN[employer] PROGRAM ASSOCIATE Work Phone: [facility] 11-26-2023 09:16-0400 Respiratory rate 16 /min Elton Pendlebury [employer] PROGRAM ASSOCIATE Work Phone: [facility] 11-26-2023 09:16-0400 SaO2% (BldA) [Mass fraction] 98 % Elton Pendlebury [employer] PROGRAM ASSOCIATE Work Phone: [facility] 11-26-2023 09:16-0400 Systolic blood pressure 122 mm[Hg] Elton Pendlebury [employer]GRAM ASSOCIATE Work Phone: [facility] 08-17-2023 16:12-0500 Body temperature 97.81 [degF] Alexia Athy PA-C Work Phone: [facility] 08-17-2023 16:12-0500 Body weight 121.11 kg Alexia Athy PA-C Work Phone: [facility] 08-17-2023 16:12-0500 Diastolic blood pressure 85 mm[Hg] Alexia Athy PA-C Work Phone: [facility] 08-17-2023 16:12-0500 Heart rate 77 /min Alexia Athy PA-C Work Phone: [facility] 08-17-2023 16:12-0500 Respiratory rate 20 /min Alexia Athy PA-C Work Phone: [facility] 08-17-2023 16:12-0500 SaO2% (BldA) [Mass fraction] 97 % Alexia Athy PA-C Work Phone: [facility] 08-17-2023 16:12-0500 Systolic blood pressure 130 mm[Hg] Alexia Athy PA-C Work Phone: [facility] 04-20-2023 08:54-0400 Body temperature 97 [degF] Marty Deni [employer] ASSOCIATE Work Phone: [facility] 04-20-2023 08:54-0400 Body weight 119.11 kg Marty Deni [employer]GRAM ASSOCIATE Work Phone: [facility] 04-20-2023 08:54-0400 Diastolic blood pressure 76 mm[Hg] Marty Deni [employer] PROGRAM ASSOCIATE Work Phone: [facility] 04-20-2023 08:54-0400 Heart rate 80 /min Marty Deni [employer] PROGRAM ASSOCIATE Work Phone: [facility] 04-20-2023 08:54-0400 Respiratory rate 18 /min Marty Deni [employer] PROGRAM ASSOCIATE Work Phone: [facility] 04-20-2023 08:54-0400 SaO2% (BldA) [Mass fraction] 98 % Marty Cheema K[employer]MAN[employer]CHO[employer]GE PROGRAM ASSOCIATE Work Phone: [facility] 04-20-2023 08:54-0400 Systolic blood pressure 128 mm[Hg] Marty Deni [employer] PROGRAM ASSOCIATE Work Phone: [facility] 09-27-2022 17:17-0500 Body height 186 cm Carol Tannhof [employer] PROGRAM ASSOCIATE Work Phone: [facility] 09-27-2022 17:17-0500 Body weight 122.02 kg Carol Tannhof [employer] PROGRAM ASSOCIATE Work Phone: [facility] 09-27-2022 17:17-0500 Diastolic blood pressure 84 mm[Hg] Carol Tannhof [employer] PROGRAM ASSOCIATE Work Phone: [facility] 09-27-2022 17:17-0500 Heart rate 85 /min Carol Tannhof [employer] PROGRAM ASSOCIATE Work Phone: [facility] 09-27-2022 17:17-0500 Respiratory rate 16 /min Carol Tannhof [employer]MAN[employer]GE PROGRAM ASSOCIATE Work Phone: [facility] 09-27-2022 17:17-0500 SaO2% (BldA) [Mass fraction] 96 % Carol Tannhof [employer]GE PROGRAM ASSOCIATE Work Phone: [facility] 09-27-2022 17:17-0500 Systolic blood pressure 136 mm[Hg] Carol Tannhof [employer] PROGRAM ASSOCIATE Work Phone: [facility] Encounters Encounter Date Encounter Type Care Provider Facility Start: 05-04-2025 End: 05-04-2025 ambulatory Shonna MO Work Phone: -[facility] Start: 05-04-2025 End: 05-04-2025 Patient encounter procedure Deja MO -[facility] Work Phone: Start: 04-20-2025 End: 04-20-2025 Emergency department patient visit Shonna MO Work Phone: -Emergency Department Work Phone: Start: 02-24-2025 End: 04-26-2025 Follow-up encounter Jennifer Oconnell APRN.SCHOOL AGE PROGRAM ASSOCIATE Work Phone: Urology Start: 02-24-2025 End: 02-24-2025 ambulatory JENNIFER OCONNELL Facility:[facility] Start: 02-06-2025 End: 02-06-2025 ambulatory JENNIFER OCONNELL Facility:[facility] Start: 12-18-2024 End: 12-18-2024 ambulatory Shonna Montiel [employer] Work Phone: [facility] Work Phone: Start: 12-18-2024 End: 12-18-2024 Patient encounter procedure Keven Polanco [employer] -Laboratory Work Phone: Start: 12-18-2024 End: 12-18-2024 ambulatory Keven Polanco Facility:[facility] Start: 10-14-2024 End: 10-14-2024 Patient encounter procedure Maya Sanchez DO Work Phone: Vascular Surgery Comment on above: Venous (peripheral) insufficiency (Primary Dx); Symptomatic varicose veins of right lower extremity Start: 10-14-2024 End: 10-14-2024 ambulatory MAYA SANCHEZ Facility:[facility] Start: 09-03-2024 End: 09-03-2024 ambulatory LESLIE BAKER Facility:[facility] Start: 09-03-2024 End: 09-03-2024 Office outpatient visit 15 minutes Chato De Guzman MD Work Phone: [facility] Comment on above: Acute cough (Primary Dx) Start: 08-08-2024 End: 08-11-2024 Telephone encounter Carol Cunningham APRN.SCHOOL AGE PROGRAM ASSOCIATE Work Phone: [facility] [place] Comment on above: Results (Labs ) Start: 07-29-2024 End: 07-29-2024 ambulatory MAYA SANCHEZ Facility:[facility] Start: 07-29-2024 End: 07-29-2024 Patient encounter procedure Maya Sanchez DO Work Phone: Vascular Surgery Comment on above: Symptomatic varicose veins of right lower extremity (Primary Dx); Swelling of lower leg; Venous (peripheral) insufficiency Start: 07-25-2024 End: 07-25-2024 Telephone encounter Carol Cunningham APRN.SCHOOL AGE PROGRAM ASSOCIATE Work Phone: [facility] Comment on above: Results (US DVT ) Start: 07-25-2024 End: 07-25-2024 ambulatory [facility] Facility:[facility] Start: 07-25-2024 End: 07-25-2024 Subsequent hospital visit by physician [facility] Work Phone: Radiology Comment on above: Swelling of lower le g [M79.89] Start: 07-24-2024 End: 07-24-2024 ambulatory [facility] Facility:[facility] Start: 07-24-2024 End: 07-24-2024 Patient encounter procedure Carol Cunningham [employer]MAN[employer] PROGRAM ASSOCIATE Work Phone: [facility] [place] Comment on above: Swelling of lower le g (Primary Dx); Family history of factor V deficiency Start: 01-02-2024 Telephone encounter Carol boothe KITMAN.SCHO[employer] AGE PROGRAM ASSOCIATE Work Phone: [facility] [place] Comment on above: Results (Labs) Start: 12-31-2023 End: 12-31-2023 Patient encounter procedure Carol Cunningham K[employer]MAN[employer]GE PROGRAM ASSOCIATE Work Phone: [facility] [place] Comment on above: Fatigue, unspecified type (Primary Dx); BPPV (benign paroxysmal positional vertigo), unspecified laterality; Screening for diabetes mellitus Start: 11-26-2023 End: 11-26-2023 Patient encounter procedure Elton Hernandez K[employer]MAN[employer] PROGRAM ASSOCIATE Work Phone: [place] [facility] Comment on above: Viral illness (Prima ry Dx); Dizziness Start: 08-17-2023 End: 08-17-2023 Subsequent hospital visit by physician Xr [facility] [place] Work Phone: Radiology Comment on above: Injury of index fing er, initial encounter [S69.90XA] Start: 08-17-2023 End: 08-17-2023 Patient encounter procedure Alexia COOL-C Work Phone: [employer] [facility] Comment on above: Injury of index fing er, initial encounter (Primary Dx); Laceration of right index finger without foreign body without damage to nail, initial encounter Start: 04-20-2023 End: 04-20-2023 Subsequent hospital visit by physician Xr [facility] [employer] Work Phone: Radiology Comment on above: Foot pain, right [M7 9.671] Start: 04-20-2023 End: 04-20-2023 Patient encounter procedure Marty Cheema APRN.CNP Work Phone: [employer] [facility] Comment on above: Foot pain, right (Pr imary Dx) Start: 09-27-2022 End: 09-27-2022 Patient encounter procedure Carol Cunningham APRN.SCHOOL AGE PROGRAM ASSOCIATE Work Phone: [facility] [employer] Comment on above: Wellness examination (Primary Dx); JESSICA (obstructive sleep apnea); Difficulty sleeping; Bruise; Screening for diabetes mellitus; Screening cholesterol level Start: 09-27-2022 End: 09-27-2022 Patient encounter status Carol Cunningham APRN.SCHOOL AGE PROGRAM ASSOCIATE Work Phone: [facility] [place] Start: 06-20-2021 End: 06-20-2021 Subsequent hospital visit by physician Xr [facility] [employer] Work Phone: Radiology Comment on above: Acute right ankle pa in [M25.571] Procedures Date Procedure Procedure Detail Performing Clinician Start: 04-20-2025 X-ray of chest, PA a nd lateral views Shonna Montiel NP-C Work Phone: Start: 04-20-2025 SARS-CoV-2, Influenz a & RSV (PCR) Shonna Montiel [employer] Work Phone: Start: 07-25-2024 Dup-scan xtr veins unilateral/limited study Carol Tannhof [employer]MAN[employer]SCHO[employer] AGE PROGRAM ASSOCIATE Work Phone: Start: 08-17-2023 Radex fingr minimum 2 views Alexia Lopez PA-C Work Phone: Start: 04-20-2023 Radex foot complete minimum 3 views Marty Cheema KITMAN.SCHO[employer] AGE PROGRAM ASSOCIATE Work Phone: Start: 06-20-2021 Radex ankle complete minimum 3 views Kaylynn Dixonk K[employer]MAN[employer]CHO[employer] AGE PROGRAM ASSOCIATE Work Phone: Plan of Treatment Date Care Activity Detail Author Start: 08-17-2033 Urine microalbumin profile DTaP,Tdap,Td Vaccine (2 - Td or Tdap) [facility] Start: 05-18-2025 Influenza vaccination Influenza Vaccine (#1) [facility] Start: 04-20-2025 [facility] Start: 04-20-2025 [facility] Start: 12-18-2024 Prolactin measurement [facility] Start: 10-14-2024 End: 10-14-2024 Patient encounter procedure Vasculary Bal meenu Comment on above: Symptomatic varicose veins of right lowe r extremity [I83.891] follow up after test ing Start: 07-29-2024 End: 07-29-2024 Patient encounter procedure 07/29/2024 8:00 AM EST Office Visit Vascular Surgery [address] [place] [address] Maya Sanchez, DO [address] [place] [address] Swelling of lower leg [M79.89] [facility] Surgery Comment on above: Swelling of lower leg [M79.89] Start: 07-25-2024 End: 07-25-2024 Patient encounter procedure 07/25/2024 1:00 PM EST Appointment Radiology [address] [place] [address] Swelling of lower leg [M79.89] Radiology Comment on above: Swelling of lower leg [M79.89] Start: 07-24-2024 End: 10-23-2024 CBC W Auto Differential panel - Blood [facility] Comment on above: Expected: 07/24/2024, Expires: Start: 07-24-2024 End: 10-23-2024 FACTOR V LEIDEN/PCR [facility] Work Phone: Comment on above: Expected: 07/24/2024, Expires: 5 Start: 05-18-2024 Covid-19 Vaccine () Covid-19 Vaccine () [facility] Start: 05-18-2024 Covid-19 Vaccine () Covid-19 Vaccine () [facility] Start: 05-18-2024 Influenza vaccination [facility] Start: 2024 Lipid panel Lipid Screening [facility] Start: 09-27-2023 COVID-19 VACCINE (3 - Booster for Pfizer series) COVID-19 VACCINE (3 - Booster for Pfizer series) [facility] Comment on above: Postponed from 03/17/2021 (Declined at t his time) Start: 09-27-2023 COVID-19 VACCINE (3 - Pfizer series) COVID-19 VACCINE (3 - Pfizer series) [facility] Comment on above: Postponed from 03/17/2021 (Declined at t his time) Start: 09-27-2023 HEPATITIS B (1 of 3 - 3-dose series) HEPATITIS B (1 of 3 - 3-dose series) [facility] Comment on above: Postponed from 1989 (Declined at t his time) Start: 09-27-2023 Hepatitis B Vaccine (1 of 3 - 3-dose series) Hepatitis B Vaccine (1 of 3 - 3-dose series) [facility] Comment on above: Postponed from 1989 (Declined at t his time) Start: 09-27-2023 HEPATITIS C SCREENING HEPATITIS C SCREENING [facility] Comment on above: Postponed from 2007 (Declined at t his time) Start: 09-27-2023 HIV SCREENING HIV SCREENING [facility] Comment on above: Postponed from 2007 (Declined at t his time) Start: 09-17-2023 Behavioral Health Screening Behavioral Health Screening [facility] Start: 01-01-2024 Depression Assessment Depression Assessment [facility] Start: 05-18-2023 Covid-19 Vaccine ( season) Covid-19 Vaccine () [facility] Start: 05-18-2023 Influenza vaccination [facility] Start: 09-27-2022 End: 11-27-2022 Comprehensive metabolic 2000 panel - Serum or Plasma COMP METABOLIC PANEL Lab Routine Wellness examination Expected: 09/27/2022, Expires: 11/27/2022 [facility] Work Phone: Comment on above: Expected: 09/27/2022, Expires: 3 Start: 09-27-2022 End: 11-27-2022 Hemoglobin A1c in Blood HGB A1C Lab Routine Screening for diabetes mellitus Expected: 09/27/2022, Expires: 11/27/2022 [facility] Work Phone: Comment on above: Expected: 09/27/2022, Expires: 3 Start: 09-27-2022 End: 11-27-2022 Lipid 1996 panel - Serum or Plasma LIPID PANEL BASIC Lab Routine Screening cholesterol level Expected: 09/27/2022, Expires: 11/27/2022 [facility] Work Phone: Comment on above: Expected: 09/27/2022, Expires: 3 Start: 05-18-2022 Influenza vaccination INFLUENZA (#1) [facility] Start: 2016 HPV Vaccine (1 - 3-dose SCDM series) HPV Vaccine (1 - 3-dose SCDM series) [facility] Start: 2008 Hepatitis B Vaccine (1 of 3 - 19+ 3-dose series) Hepatitis B Vaccine (1 of 3 - 19+ 3-dose series) [facility] Start: 2008 Urine microalbumin profile DTAP,TDAP,TD (1 - Tdap) [facility] Start: 2007 Anxiety Screening Anxiety Screening [facility] Start: 2007 Depression Screening Depression Screening [facility] Start: 2007 Hepatitis C screening Hepatitis C Screening [facility] Start: 2007 HIV screening HIV Screening [facility] C reactive protein [Mass/volume] in Serum or Plasma [facility] ANCA Screen [facility] Dehydroepiandrostero ne sulfate (DHEA-S) [Mass/volume] in Serum or Plasma [facility] Elastase.pancreatic [Presence] in Stool [facility] Patient Education ED Esophageal Foreign Body, Resolved ED Pneumonia (Adult) [facility] Work Phone: Protein measurement [facility] Serum testosterone measurement [facility] Sex hormone binding globulin [Moles/volume] in Serum or Plasma [facility] Testosterone Free [M ass/volume] in Serum or Plasma [facility] Testosterone measurement [facility] End: 08-23-2025 US Lower extremity vein - right US DVT LOWER RIGHT Radiology STAT Swelling of lower leg 1 Occurrences starting 07/24/2024 until 08/23/2025 [facility] Comment on above: 1 Occurrences starting 07/24/2024 until 08/23/2025 End: 07-29-2025 US Vein US VENOUS INCOMPETENCY [facility] Vascular Lab Routine Symptomatic varicose veins of right lower extremity 1 Occurrences starting 07/29/2024 until 07/29/2025 [facility] Work Phone: Comment on above: 1 Occurrences starting 07/29/2024 until 07/29/2025 [facility] Immunizations Immunization Date Immunization Notes Care Provider Miles barber 08-17-2023 tetanus toxoid, reduced diphtheria toxoid, and acellular pertussis vaccine, adsorbed Alexia Lopez PA-C Work Phone: [facility] 07-01-2020 influenza, seasonal, injectable Carol Cunningham APRN.CNP Work Phone: [facility] 07-01-2020 influenza virus vaccine, unspecified formulation Alexia Lopez PA-C Work Phone: [facility] 08-23-2017 influenza, injectabl e, quadrivalent, preservative free Shonna MO Work Phone: [facility] Payers Date Payer Category Payer Self-pay 2020 Private Health Insurance [id number] 2020 Private Health Insurance [id number] 2015 [id number] Unknown [id number] Unknown [id number] Social History Date Type Detail Facility Start: 09-27-2022 End: 04-20-2025 Tobacco smoking status NHIS Never smoked tobacco [facility] Start: 10-20-2020 End: 09-27-2022 Tobacco use and exposure Former smokeless tobacco user [facility] History of tobacco use Snuff User [facility] Start: 09-27-2022 End: 02-06-2025 Alcohol intake Current drinker of alcohol (finding) [facility] Start: 01-02-2019 End: 09-27-2022 Tobacco Comment former chew, quit in 2016 [facility] Start: 01-02-2019 [facility] Start: 1990 Sex Assigned At Not on file [facility] Start: 04-20-2023 End: 12-31-2023 History of Social function [facility] Work Phone: Start: 04-20-2023 End: 12-31-2023 Tobacco use panel [facility] Work Phone: Start: 05-29-2013 Adult Depression Screening Assessment 0 [facility] Work Phone: Start: 1990 Sex Assigned At Male C [facility] Start: 04-20-2023 Gender identity Identifies as male gender (finding) [facility] Start: 04-20-2023 Sexual orientation Heterosexual (dewey valadez) [facility] Has the [employer], [employer] in [place], or water [employer] threatened to shut off services in your home in past 12Mo No [facility] Are you now , , , , never or living with a partner? [facility] How often to you hav e a drink containing alcohol? Never [facility] Do you feel stress - tense, restless, nervous, or anxious, or unable to sleep at night because your mind is troubled all the time - these days [OSQ] To some extent [facility] (I/We) worried wheth er (my/our) food would run out before (I/we) got money to buy more. Never true [facility] Start: 12-23-2024 Sex Male (finding) [facility] Medical Equipment Procedure Code Equipment Code Equipment Origin al Text Equipment Identifier Dates LEATHARADHAREBECCA Murphy GUTIERREZJOSE FDA Start: 08-23-2017 LEATHARADHAREBECCA Murphy [employer] FDA Start: 08-23-2017 LEATHARADHAREBECCA Murphy [employer] FDA Start: 08-23-2017 LEATHARADHAREBECCA Murphy [employer] FDA Start: 08-23-2017 LEATHARADHAREBECCA Murphy [employer] FDA Start: 08-23-2017 LEATHARADHAREBECCA Murphy [employer] FDA Start: 08-23-2017 LEATHARADHAREBECCA Murphy [employer] FDA Start: 08-23-2017 LEATHATCJOSE Murphy [employer] FDA Start: 08-23-2017 LEATHAPure Eleg[employer] TVJAREDJOSE ME Murphy [employer] FDA Start: 08-23-2017 Goals Date Patient Goal Desired Activity /State Personal health goal Functional Status Date Assessment Result Facility 03-30-2014 Are you deaf, or do you have serious difficulty hearing No 03/30/2014 6:44 PM MIGUELT Celina Leiva MA No [facility] 03-30-2014 Are you blind, or do you have serious difficulty seeing, even when wearing glasses No 03/30/2014 6:44 PM MIGUELT Celina Leiva MA No [facility] 03-30-2014 Do you have serious difficulty walking or climbing stairs No 03/30/2014 6:44 PM MIGUELT Celina Leiva MA No [facility] 03-30-2014 Do you have difficul ty dressing or bathing No 03/30/2014 6:44 PM MIGUELT Celina Leiva MA No [facility] 03-30-2014 Because of a physica l, mental, or emotional condition, do you have difficulty doing errands alone such as visiting a physician's office or shopping No 03/30/2014 6:44 PM EDT Celina Leiva MA No [facility] Mental Status Date Assessment Result Facility 04-20-2025 Cognitive function Level Of Cons ciousness Awake;Alert;Appropriate;Fol lows Commands [facility] Work Phone: 03-30-2014 Because of a physica l, mental, or emotional condition, do you have serious difficulty concentrating, remembering, or making decisions No 03/30/2014 6:44 PM EDT Celina Leiva MA No [facility] Clinical Notes 06-20-2021 to 04-20-2025 Note Date & Type Note Facility 04-20-2025 Discharge summary [facility] 04-20-2025 Radiology Diagnostic study note [facility] Imaging Services [address] [place], [place] [id number] Chest PA and Lateral MR#: [id number] Acct: [id number] Name: ROSHAN BELLO Rep #: [id number] : 1990 M 35 From: Tamera Javed MD PCP: LAKISHA AceC Status: REG ER Study:Chest PA and Lateral Date of Exam: 04/20/25 Exam# [id number] Ordering Dr: Khalif Mena MD PROCEDURE: CHEST PA AND LATERAL 04/20/2025 REASON FOR EXAM: EPIGASTRIC PAIN, COUGH; RECENT ESOPH OBSTRUCTN TECHNIQUE: CHEST PA AND LATERAL COMPARISON: None FINDINGS: Hardware: None Heart: Normal Mediastinum: Clear Lungs: Subtle mixed interstitial airspace opacity inferior right upper lobe. Bones: Normal RAD/Chest PA and Lateral IMPRESSION: Subtle, patchy opacity inferior right upper lobe. Consider pneumonia. Reading Location: [id number] CC: [employer] Shonna Louis; Dr. Jese Mena MD ~ Wire Galvanizer: Signed [facility] 04-20-2025 Discharge summary Note Date/Time April 20, 2025 4:52pm [facility] Medical Records Department [address] [place] [address] Emergency Department Summary 04/20/25 MR#: [id number] Acct: [id number] Name: ROSHAN BELLO Rep #:[id number] : 1990 35 From: Jese Mena MD PCP: Shonna Louis [employer] Status:REG ER Location: ED HPI History of Present Illness Chief Complaint: General Illness Informant: patient and spouse/S.O. Narrative Narrative: 35-year-old male states he was eating dinner last night which included brisket and he swallowed a piece of brisket and he felt it get stuck in his lower chest/esophagus. He tried to drink some water and vomited it up as a result. Eventually, he felt it passed and then he was able to eat and drink without any difficulty. Ever since he has had some mild epigastric discomfort that feels like a knot, and a couple times he felt some acid reflux in the back of his throat which he has felt before. Does not take anything regularly for it. He woke up in the middle of the night feeling achy all over like he had the flu. He had a mild cough for couple days, nonproductive, no fevers or chills but he states he feels very malaised today. He denies any other new symptoms, he denies ever having a choking spell or felt like he aspirated during any of this. He does not feel out of breath now or have any chest discomfort. He states he has had foods get stuck after swallowing in the past maybe 3 times he has never lasted this long or been this bad is this episode. He states it was with meat and bread in the past but it was relatively brief as far as the amount of time he got stuck. [facility] Medical History Encounter for screening for COVID-19 Home Medications ?Medication ?Instructions ?Recorded ?Last Taken ?Type hydrocodone-acetaminophen 5-325mg 1 ea PO Q6H PRN PRN Pain #30 tabs 08/23/17 Unknown Rx 5mg-325mg amoxicillin 875 mg-potassium 875 mg PO Q12H #20 TABLET S 04/20/25 Unknown Rx clavulanate 125 mg tablet pantoprazole 40 mg tablet,delayed 40 mg PO DAILY #30 t abs 04/20/25 Unknown Rx release Allergy/AdvReac Type Severity Reaction Status Date / Time owens (cherries) Allergy Swelling Verified 04/20/25 12:42 Social History housing: house Smoking Status: Never smoker ROS ROS ED Constitutional Constitutional ED: Reports body ache(s) and malaise; Denies chills or fever(s) Eyes Eyes: Denies change in vision or diplopia ENT ENT ED: Denies rhinorrhea or sore throat Cardiovascular Cardiovascular: Reports other Details: Chest discomfort lower substernal when hehad meat stuck, resolved when obstruction cleared. ; Denies chest pain or palpitations Respiratory/Chest Respiratory/Chest: Reports cough; Denies dyspnea Gastrointestinal Gastrointestinal: Reports abdominal pain; Denies diarrhea, nausea or vomiting Genitourinary Genitourinary ED: Denies dysuria or hematuria Musculoskeletal Musculoskeletal: Denies back pain or neck pain Integumentary Denies abscess or rash Neurologic Neurologic: Reports headache(s); Denies paresthesias or weakness Psychiatric Psychiatric: Denies anxiety or suicidal thoughts EXAM Physical Exam Const Vital Signs: 04/20/25 12:39 04/20/25 13:43 Temperature 98.2 F Temperature Source Oral Pulse Rate 106 H Respiratory Rate 16 Respiratory Effort Normal Non-Labored Respiratory Pattern Normal Blood Pressure 133/88 H Blood Pressure Mean 103 Pulse Ox 100 Oxygen Delivery Method Room Air Positive well nourished and well developed Constitutional Narrative: Well-appearing in no distress General Appearance ED: well developed and NAD HEENT Reports moist mucous membranes HEENT Narrative: No stridor. No coughing. normocephalic and atraumatic Eyes PERRL and EOMs intact bilaterally Neck full ROM and supple Resp normal respiratory effort and clear to auscultation bilaterally Cardio regular rate, regular rhythm and no murmurs GI non-tender and non-distended GI Narrative: No epigastric tenderness; just feels like a knot. Auscultation: normoactive bowel sounds Palpation: soft Back/Spine no CVA tenderness General Back: other FROM Extremity normal to inspection General Extremety ED: Negative for edema, pulses abnormal or tenderness General Extremity: Negative for edema or pulses abnormal Neuro oriented x3, CN's II-XII intact bilaterally and no sensory deficits noted Sensorium / Orientation: awake and alert Motor Exam: strength 5/5 throughout Skin no rashes or lesions noted and no wounds MDM MDM MDM Narrative Medical decision making narrative: Patient is well-appearing, is not tachycardic on exam I do not think he is septic. I will obtain a chest x-ray to evaluate for the possibility of a pre-existing pneumonia, and aspiration pneumonia, and esophageal perforation all of which I think are unlikely based on my exam and his vital signs and history. Also obtain a COVID/influenza/RSV swab, and treat his symptoms with pantoprazoleand GI cocktail. We did a COVID/influenza/RSV swab that is negative. 2 view chest x-ray my interpretation shows nothing really obvious, but radiology sees a subtle patchy opacity in the right upper lobe consistent with an early pneumonia. I reviewed the images and report which I agree with. Given the location and history, this is suspicious for aspiration etiology. Augmentin would be reasonable coverage patient does not have a penicillin allergy. He is not hypoxic or tachycardic atrest here, and he is well and not septic. Therefore I do not think he needs to be admitted to the hospital. After GI cocktail and pantoprazole, he had resolution of his epigastric discomfort and GI symptoms, which was expected. There is no evidence of esophageal perforation on the x-ray. I discussed with GI Dr. Dozier, he agrees with putting him on pantoprazole and have him follow-upas an outpatient for scope. Radiography Diagnostic Testing: Clinical Impression(s) from Imaging Studies Chest X-Ray 04/20/25 14:26 IMPRESSION: Subtle, patchy opacity inferior right upper lobe. Consider pneumonia. Reading Location: [facility] Management Discussion w/another healthcare provider: Reactor Technician Discharge Plan Triage Chief Complaint: General Illness ED Provider: Jese Mena Dx/Rx/DC Orders Clinical Impression: Esophageal obstruction due to food impaction, Aspiration pneumonia, GERD (gastroesophageal reflux disease) Instructions: ED Esophageal Foreign Body, Resolved, ED Pneumonia (Adult) Prescriptions: New pantoprazole 40 mg tablet,delayed release (DR/EC) 40 mg PO DAILY Qty: 30 0RF amoxicillin-pot clavulanate 875-125 mg tablet 875 mg PO Q12H Qty: 20 0RF No Action hydrocodone-acetaminophen 1 EACH tablet 1 ea PO Q6H PRN PRN (Reason: Pain) Qty: 30 0RF Primary Care Provider: Shonna Montiel NP Referrals: Zeb Dozier DO [Med Staff - Active Staff] - As soon as possible (call for first avail appt) Print Language: Belarusian Disposition Disposition: Home, Self Care What to do if you have Problems For any increased pain, shortness of breath, bleeding, nausea or vomiting, chestpain, or any unexpected problems, contact your Primary Care Provider. Call [facility] ([phone]) or report to the closest Emergency Room. Call 911 if necessary. 04/20/25 1652 <Electronically signed by Jese Mena MD> Cosigner Signature (if applicable): CC: [employer] Shonna Older; Zeb Dozier DO ~ Signed [facility] Work Phone: [phone]) 197-908005-23-2025 NoteHNO ID: [id number] Author: JENNIFER OCONNELL APRN.SCHOOL [employer] PROGRAM ASSOCIATE Service: ? Author Type: Nurse Practitioner Type: Progress Notes Filed: 02/06/2025 14:30 Note Text: VIRTUAL VISIT PROGRESS NOTE This is a virtual visit using webtideom Video Visit. It required patient-provider interaction for the medical decision making as documented below. I have communicated my name and active licensure. The patient's identity and physical location were verified at the time of this visit. Either the patient or their legal loss control representative has been informed of the risks and benefits of -- and alternatives to -- treatment through a remote evaluation and consents to proceed with the evaluation remotely. 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 Denies ED Mild hesitancy at times Denies dysuria, gross hematuria 12/18/2024 external labs Total T 369 lipids, tsh, fsh, lh, estradiol, prolactin all normal Recent weight loss, diet improvement, improved blood pressure Non smoker Stopped ETOH 2 years ago 4-5 days per week exercise 3 kids HISTORY REVIEWED (electronic chart updated): PAST MEDICAL HISTORY Diagnosis Date NEGATIVE MEDICAL HISTORY PAST SURGICAL HISTORY Procedure Laterality Date CHOLECYSTECTOMY HX 08/23/[address] Bennett LAPAROSCOPIC APPENDECTOMY 11/28/2016 FAMILY HISTORY Problem Relation Age of Onset Diabetes Maternal Grandfather Alzheimer's Disease Maternal Grandfather Blood Clots Mother 60 Cancer Paternal Grandfather unknown Social History Tobacco Use Smoking status: Never Smokeless tobacco: Former Types: Snuff Tobacco comments: former chew, quit in 2016 Vaping Use Vaping status: Never Used Substance Use Topics Alcohol use: Yes Alcohol/week: 1.0 - 2.0 standard drink of alcohol Types: 1 - 2 Cans of Beer (12oz) per week Comment: weekend Drug use: Never Current Outpatient Medications Medication Sig MAGNESIUM GLYCINATE ORAL Take 2 tablets by mouth daily at bedtime. multivit-minerals/folic acid (MEN'S MULTIVITAMIN GUMMIES ORAL) Take by mouth. Adrenal support No current facility-administered medications for this visit. ALLERGIES No Known Allergies REVIEW OF SYSTEMS: GENERAL: feeling well without fatigue, no recent change in weight PHYSICAL EXAMINATION: VIDEO EXAM: (if completed, performed via video enabled technology) GENERAL: alert and appropriate, in no distress, well-hydrated, well nourished, and happy, smiling, interactive HEAD: normocephalic, no abnormality or lesion noted RESPIRATORY: breathing non-labored ASSESSMENT/PLAN: 1. Libido, decreased - ICD9: 799.81, ICD10: R68.82 (primary diagnosis) -labs are normal -testosterone was not collected between 8-10 am -recheck testosterone level -if low he will need another check and I will have him follow up with [facility] -if normal he may benefit from sexual health therapist for libido - TESTOSTERONE, TOTAL BY IMMUNOASSAY (ADULT MALES, OR INDIVIDUALS ON TESTOSTERONE THERAPY) 2. Irritable - ICD9: 799.22, ICD10: R45.4 - TESTOSTERONE, TOTAL BY IMMUNOASSAY (ADULT MALES, OR INDIVIDUALS ON TESTOSTERONE THERAPY) There are no Patient Instructions on file for this visit. I spent a total of 25 minutes on the date of the service which included preparing to see the patient, [id number] patient care, completing clinical documentation, obtaining and/or reviewing separately obtained history, performing a medically appropriate examination, counseling and educating the patient/family/caregiver, and ordering medications, tests, or procedures Jennifer Oconnell APRN.[facility]01-28-2025 Instructions* Patient Instructions* Maya Sanchez DO - 10/14/2024 9:21 AM EST Your ultrasound showed reflux (valves not working as well) in your right greater saphenous vein. I would recommend a laser ablation to treat the vein. In the laser procedure, we get into the vein like starting an IV and place the laser catheter inside the vein. After we place the laser, we surroundthe vein with a numbing fluid. This fluid allows the vein to collapse onto the laser fiber and allows us to use less energy. Also the numbing fluid acts to absorb the heat from the laser. After we put in the numbing fluid, we activate the laser and close off the vein. This will help decrease the flow through the vein and make your leg feel better. You may notice the varicose veins decrease in size following the procedure. After the laser we will apply a compression stockings or wrap your leg with a compression wrap. You will get an ultrasound a week later. There are three big risks with the procedure- 1. Blood clot in the larger vein in your leg (DVT)- to prevent that we use ultrasound during the procedure and have you get an ultrasound a week later. Also we want you active and moving following the procedure. 2. Burn to your skin- we don't see this anymore since we use that numbing fluid. 3. Numbness on the inside portion of your leg- this is due to the heat from the laser irritating a nerve that travels with the vein. This typically will improve over time. Downtime is minimal following the procedure. We want you up and active. We do ask that you don't fly or take long car trips the week following the procedure. We need to submit the findings to the insurance company. documented in [facility]Day[facility]25 NoteHNO ID: [id number] Author: MAYA SANCHEZ DO Service: ? Author Type: Physician Type: Progress Notes Filed: 10/14/2024 12:57 Note Text: [facility] DEPARTMENT OF VASCULAR SURGERY OUTPATIENT VISIT DATE October 14, 2024 OUTPATIENT VISIT TYPE ESTABLISHED SERVICE DATE: 10/14/2024 SERVICE TIME: 9:05 AM PRIMARY CARE PHYSICIAN: Leslie Baker MD HISTORY OF PRESENT ILLNESS: Mr. Bello is a 34 year old male who presents today for a vascular surgery follow-up visit right leg symptomatic varicose veins. He wears compression during the day. PAST MEDICAL HISTORY Diagnosis Date NEGATIVE MEDICAL HISTORY PAST SURGICAL HISTORY Procedure Laterality Date CHOLECYSTECTOMY HX 08/23/[address] Bennett LAPAROSCOPIC APPENDECTOMY 11/28/2016 SOCIAL HISTORY Social History Tobacco Use Smoking status: Never Smokeless tobacco: Former Types: Snuff Tobacco comments: former chew, quit in 2016 Vaping Use Vaping status: Never Used Substance Use Topics Alcohol use: Yes Alcohol/week: 1.0 - 2.0 standard drink of alcohol Types: 1 - 2 Cans of Beer (12oz) per week Comment: weekend Drug use: Never MEDICATIONS: MAGNESIUM GLYCINATE ORAL Take 2 tablets by mouth daily at bedtime. multivit-minerals/folic acid (MEN'S MULTIVITAMIN GUMMIES ORAL) Take by mouth. Adrenal support ALLERGIES: ALLERGIES No Known Allergies PHYSICAL EXAM: BP 109/68 (BP Site: Left Arm, BP Position: Sitting, BP Cuff Size: Extra Large Adult) Pulse 60 SpO2 97% Gen- no distress Ext- right medial calf varicose veins, edema, hyperpigmentation, distal medial malleolar region lipodermatosclerosis Diagnostic tests reviewed for today's visit: Most recent labs Most recent imaging Venous Reflux Testing RIGHT SIDE - DEEP VEINS Negative for acute deep vein thrombosis in vessels visualized. RIGHT SIDE - SUPERFICIAL VEINS Positive for valvular incompetency in the great saphenous vein. Varicosities arise at the knee and course through the medial calf to ankle. An incompetent hop weigher is noted distal calf. Negative for valvular incompetency in the small saphenous vein. IMPRESSION: Mr. Bello is a 34 year old male with symptomatic varicose veins . PLAN and RECOMMENDATIONS: CEAP CLASSIFICATION OF VENOUS DISEASE: CLINICAL C2: Varicose veins C3: Edema C4b: Lipodermatosclerosis or athrophie el S: Symptomatic, including ache, pain, tightness, skin irritation, heaviness, muscle cramps and other complaints attribultable to venous dysfunction ETIOLOGY Ep: Primary ANATOMIC As: Superficial veins PATHOPYSIOLOGIC Pr: Reflux INDICATION(S) FOR SURGERY: Right great saphenous vein reflux, Grade III-IV and Right painful varicose vein disease SIGNATURE: Maya Sanchez DO PATIENT NAME: Roshan Bello DATE: October 14, 2024 TIME: 9:05 [facility]01-28-2025 History of Present illness Narrative* Maya Sanchez DO - 10/14/2024 9:03 AM EST Images from the original note were not included. [facility] DEPARTMENT OF VASCULAR SURGERY OUTPATIENT VISIT DATE October 14, 2024 OUTPATIENT VISIT TYPE ESTABLISHED SERVICE DATE: 10/14/2024 SERVICE TIME: 9:05 AM PRIMARY CARE PHYSICIAN: Leslie Baker MD HISTORY OF PRESENT ILLNESS: Mr. Bello is a 34 year old male who presents today for a vascular surgery follow-up visit right leg symptomatic varicose veins. He wears compression during the day. PAST MEDICAL HISTORY Diagnosis Date NEGATIVE MEDICAL HISTORY PAST SURGICAL HISTORY Procedure Laterality Date CHOLECYSTECTOMY HX 08/23/[address] Bennett LAPAROSCOPIC APPENDECTOMY 11/28/2016 SOCIAL HISTORY Social History Tobacco Use Smoking status: Never Smokeless tobacco: Former Types: Snuff Tobacco comments: former chew, quit in 2016 Vaping Use Vaping status: Never Used Substance Use Topics Alcohol use: Yes Alcohol/week: 1.0 - 2.0 standard drink of alcohol Types: 1 - 2 Cans of Beer (12oz) per week Comment: weekend Drug use: Never MEDICATIONS: MAGNESIUM GLYCINATE ORAL Take 2 tablets by mouth daily at bedtime. multivit-minerals/folic acid (MEN'S MULTIVITAMIN GUMMIES ORAL) Take by mouth. Adrenal support ALLERGIES: ALLERGIES No Known Allergies PHYSICAL EXAM: BP 109/68 (BP Site: Left Arm, BP Position: Sitting, BP Cuff Size: Extra Large Adult) Pulse 60 SpO2 97% Gen- no distress Ext- right medial calf varicose veins, edema, hyperpigmentation, distal medial malleolar region lipodermatosclerosis Diagnostic tests reviewed for today's visit: Most recent labs Most recent imaging Venous Reflux Testing RIGHT SIDE - DEEP VEINS Negative for acute deep vein thrombosis in vessels visualized. RIGHT SIDE - SUPERFICIAL VEINS Positive for valvular incompetency in the great saphenous vein. Varicosities arise at the knee and course through the medial calf to ankle. An incompetent hop weigher is noted distal calf. Negative for valvular incompetency in the small saphenous vein. IMPRESSION: Mr. Bello is a 34 year old male with symptomatic varicose veins . PLAN and RECOMMENDATIONS: CEAP CLASSIFICATION OF VENOUS DISEASE: CLINICAL C2: Varicose veins C3: Edema C4b: Lipodermatosclerosis or athrophie el S: Symptomatic, including ache, pain, tightness, skin irritation, heaviness, muscle cramps and other complaints attribultable to venous dysfunction ETIOLOGY Ep: Primary ANATOMIC As: Superficial veins PATHOPYSIOLOGIC Pr: Reflux INDICATION(S) FOR SURGERY: Right great saphenous vein reflux, Grade III-IV and Right painful varicose vein disease SIGNATURE: Maya Sanchez DO PATIENT NAME: Roshan Bello DATE: October 14, 2024 TIME: 9:05 AM documented in this encounterDayton [facility]12-18-2024 NoteHNO ID: [id number] Author: CHATO DE GUZMAN MD Service: ? Author Type: Physician Type: Progress Notes Filed: 09/03/2024 18:04 Note Text: Patient presents with: Chest Congestion: cough x 5 days HPI: Feeling sick for 6 days. His was diagnosed with pneumonia today. Positive symptoms: cough, Shortness of breath on stairs today, chest congestion, Negative symptoms: Chest pain, Sore throat, Sinus pressure, Nasal Congestion, Rhinorrhea, Fever, Chills, Headache, OTC: none MEDICATIONS: Current Outpatient Medications Medication Sig multivit-minerals/folic acid (MEN'S MULTIVITAMIN GUMMIES ORAL) Take by mouth. No current facility-administered medications for this visit. ALLERGIES: ALLERGIES No Known Allergies VITALS: BP 112/70 Pulse 88 Temp 36.3 ?C (97.4 ?F) Resp 16 Wt 122.7 kg (270 lb 8.1 oz) SpO2 96% BMI 35.47 kg/m? PHYSICAL EXAM: GEN: mildly ill appearing HEENT: PERRL, EOMI, conjunctiva clear Ears: canals clear. TMs without erythema, bulge, or effusion Sinuses: non-tender frontal sinus, non-tender maxillary sinuses Throat: moist mucous membranes, no erythema, no exudate Neck: supple, no thyromegaly, no lymphadenopathy HEART: regular rate, regular rhythm, no murmurs LUNGS: clear to auscultation, no wheezes or crackles, no increased WOB ASSESSMENT/PLAN: 1. Acute cough - ICD9: 786.2, ICD10: R05.1 - URI with bronchitis. Discussed CXR to rule out occult pneumonia; deferred for now. - Discussed supportive care treatment with rest, cold medicine, and analgesia. Follow up with worsening cough, worsening shortness of breath, increasing chest pain, or late onset fever. Chato De Guzman [facility]12-18-2024 History of Present illness Narrative* Chato De Guzman MD - 09/03/2024 5:55 PM EST Patient presents with: Chest Congestion: cough x 5 days HPI: Feeling sick for 6 days. His was diagnosed with pneumonia today. Positive symptoms: cough, Shortness of breath on stairs today, chest congestion, Negative symptoms: Chest pain, Sore throat, Sinus pressure, Nasal Congestion, Rhinorrhea, Fever, Chills, Headache, OTC: none MEDICATIONS: Current Outpatient Medications Medication Sig multivit-minerals/folic acid (MEN'S MULTIVITAMIN GUMMIES ORAL) Take by mouth. No current facility-administered medications for this visit. ALLERGIES: ALLERGIES No Known Allergies VITALS: BP 112/70 Pulse 88 Temp 36.3 C (97.4 F) Resp 16 Wt 122.7 kg (270 lb 8.1 oz) SpO2 96% BMI 35.47 kg/m PHYSICAL EXAM: GEN: mildly ill appearing HEENT: PERRL, EOMI, conjunctiva clear Ears: canals clear. TMs without erythema, bulge, or effusion Sinuses: non-tender frontal sinus, non-tender maxillary sinuses Throat: moist mucous membranes, no erythema, no exudate Neck: supple, no thyromegaly, no lymphadenopathy HEART: regular rate, regular rhythm, no murmurs LUNGS: clear to auscultation, no wheezes or crackles, no increased WOB ASSESSMENT/PLAN: 1. Acute cough - ICD9: 786.2, ICD10: R05.1 - URI with bronchitis. Discussed CXR to rule out occult pneumonia; deferred for now. - Discussed supportive care treatment with rest, cold medicine, and analgesia. Follow up with worsening cough, worsening shortness of breath, increasing chest pain, or late onsetfever. Chato De Guzman MD documented in this encounterDayton [facility] Hospital11-25-2024 Telephone encounter Note * Telephone Encounter - Mayte Young MA - 08/11/2024 2:42 PM EST Call to pt and notified him of message below. Pt states that his FHx was Factor V. Notified him that this was the test that was completed. Pt verbalized understanding. Mayte Young MA [facility]11-25-2024 Miscellaneous Notes* Telephone Encounter - Mayte Young MA - 08/11/2024 2:42 PM EST Call to pt and notified him of message below. Pt states that his FHx was Factor V. Notified him that this was the test that was completed. Pt verbalized understanding. Mayte Young MA * Telephone Encounter - Angela Fowler LPN - 08/08/2024 8:28 AM EST Phoned patient left message to return call and ask to speak to a nurse. * Telephone Encounter - Carol Cunningham APRN.CNP - 08/08/2024 8:05 AM EST Can you please call the patient and let him know that I reviewed his lab results. Labs were all normal. I was attempting to order a special lab order set for clotting disorders, the test that was ran wasfor factor V. I wanted to verify that family history was factor V or was it factor X? Thank you. Carol Cunningham APRN.NICO documented in this encounterDayton Oste[facility] Hospital11-22-2024 Telephone encounter Note * Telephone Encounter - Angela Fowler LPN - 08/08/2024 8:28 AM EST Phoned patient left message to return call and ask to speak to a nurse. [facility]11-22-[facility] Telephone encounter Note* Telephone Encounter - Carol Cunningham APRN.CNP - 08/08/2024 8:05 AM EST Can you please call the patient and let him know that I reviewed his lab results. Labs were all normal. I was attempting to order a special lab order set for clotting disorders, the test that was ran wasfor factor V. I wanted to verify that family history was factor V or was it factor X? Thank you. Carol Cunningham APRN.SCHOOL AGE PROGRAM ASSOCIATE [facility]11-12-2024 NoteHNO ID: [id number] Author: MAYA SANCHEZ, DO Service: ? Author Type: Physician Type: Progress Notes Filed: 07/29/2024 08:44 Note Text: [facility] DEPARTMENT OF VASCULAR SURGERY OUTPATIENT VISIT DATE July 29, 2024 OUTPATIENT VISIT TYPE CONSULTATION SERVICE DATE: 07/29/2024 SERVICE TIME: 8:06 AM PRIMARY CARE PHYSICIAN: Leslie Baker MD REFERRING PROVIDER: Carol Cunningham [address] [facility] [address] Consult requested for an opinion regarding the evaluation and treatment of the above. My final impression and recommendations will be communicated back to the requesting physician by way of the shared medical record or letter via US mail. CHIEF COMPLAINT: Patient presents with: New Patient History of Present Illness: Patient is a 34 year old White male presenting for consultation, evaluation and possible treatment of leg edema and discoloration. He has a significant family history of DVT, Factor V and varicose veins- mother. He stands for prolonged periods of time. He works at [employer]. He admits that it can be tender to touch. He has not tried compression. PAIN ASSESSMENT: PAIN EVALUATION No data found in the last 1 encounters. Duration of Symptoms: Progressive PAST MEDICAL HISTORY Diagnosis Date NEGATIVE MEDICAL HISTORY PAST SURGICAL HISTORY Procedure Laterality Date CHOLECYSTECTOMY HX 08/23/[address] Bennett LAPAROSCOPIC APPENDECTOMY 11/28/2016 SOCIAL HISTORY: Social History Tobacco Use Smoking status: Never Smokeless tobacco: Former Types: Snuff Tobacco comments: former chew, quit in 2016 Vaping Use Vaping status: Never Used Substance Use Topics Alcohol use: Yes Alcohol/week: 1.0 - 2.0 standard drink of alcohol Types: 1 - 2 Cans of Beer (12oz) per week Comment: weekend Drug use: Never FAMILY HISTORY Problem Relation Age of Onset Diabetes Maternal Grandfather Alzheimer's Disease Maternal Grandfather Blood Clots Mother 60 Cancer Paternal Grandfather unknown MEDICATIONS: multivit-minerals/folic acid (MEN'S MULTIVITAMIN GUMMIES ORAL) Take by mouth. ALLERGIES: ALLERGIES No Known Allergies REVIEW of SYSTEMS: Constitutional: No weight loss, malaise or fevers. HEENT: Negative for frequent or significant headaches, No changes in hearing or vision, no nose bleeds or other nasal problems Respiratory: Negative for cough, wheezing, or shortness of breath Cardiovascular: Negative for chest pain and Positive for leg swelling and palpitations Gatrointestinal: Negative for abdominal discomfort, blood in stools or black stools or change in bowel habits Genitourinary: No history of dysuria, frequency, or incontinence Musculoskeletal: Negative for back pain and muscle pain and Positive for joint pain Endocrine: Negative for cold or heat intolerance, polyuria, polydipsia and goiter Hematology/Lymphatic: Negative for prolonged bleeding, bruising easily or swollen nodes Neurologic: No history or headaches, syncope, paralysis, seizures or tremors Integumentary: Negative for lesions, rash, and itching. PHYSICAL EXAM: VITALS: There were no vitals taken for this visit. General: Alert, oriented, cooperative, healthy appearance Integumentary: Normal color, no rash, no lesions. HEENT: EOM, pupils equal, round and reactive. Cardiovascular: Pulse regular. Lungs: No chest deformities or chest wall tenderness. Abdomen: Not examined Extremities: Varicose veins- right medial calf and ankle, hyperpigmentation, spider veins right ankle and foot Neurological: AAOx3. Normal cognition and motor skills. Vascular: Dorsalis Pedal Right: Normal - Left: Normal Diagnostic tests reviewed for today's visit: Most recent labs Most recent imaging IMPRESSION: Mr. Bello is a 34 year old male with symptomatic varicose veins, C4 . PLAN and RECOMMENDATIONS: Discussed venous pathology with patient Recommend trial of compression stockings, elevation and exercise Will get venous reflux testing and follow up to discuss results Prescription provided for compression stockings 20-30 mmHg and instructed on use SIGNATURE: Maya Sanchez DO PATIENT NAME: Roshan Bello DATE: July 29, 2024 TIME: 8:06 [facility]11-12-2024 History of Present illness Narrative* Maya Sanchez DO - 07/29/2024 8:06 AM EST Images from the original note were not included. [facility] DEPARTMENT OF VASCULAR SURGERY OUTPATIENT VISIT DATE July 29, 2024 OUTPATIENT VISIT TYPE CONSULTATION SERVICE DATE: 07/29/2024 SERVICE TIME: 8:06 AM PRIMARY CARE PHYSICIAN: Leslie Baker MD REFERRING PROVIDER: Carol Cunningham [address] [place] [id number] Consult requested for an opinion regarding the evaluation and treatment of the above. My final impression and recommendations will be communicated back to the requesting physician by way of the shared medical record or letter via US mail. CHIEF COMPLAINT: Patient presents with: New Patient History of Present Illness: Patient is a 34 year old White male presenting for consultation, evaluation and possible treatment of leg edema and discoloration. He has a significant family history of DVT, Factor V and varicose veins- mother. He stands for prolonged periods of time. He works at [employer]. He admits that it can be tender to touch. He has not tried compression. PAIN ASSESSMENT: PAIN EVALUATION No data found in the last 1 encounters. Duration of Symptoms: Progressive PAST MEDICAL HISTORY Diagnosis Date NEGATIVE MEDICAL HISTORY PAST SURGICAL HISTORY Procedure Laterality Date CHOLECYSTECTOMY HX 08/23/[address] Bennett LAPAROSCOPIC APPENDECTOMY 11/28/2016 SOCIAL HISTORY: Social History Tobacco Use Smoking status: Never Smokeless tobacco: Former Types: Snuff Tobacco comments: former chew, quit in 2016 Vaping Use Vaping status: Never Used Substance Use Topics Alcohol use: Yes Alcohol/week: 1.0 - 2.0 standard drink of alcohol Types: 1 - 2 Cans of Beer (12oz) per week Comment: weekend Drug use: Never FAMILY HISTORY Problem Relation Age of Onset Diabetes Maternal Grandfather Alzheimer's Disease Maternal Grandfather Blood Clots Mother 60 Cancer Paternal Grandfather unknown MEDICATIONS: multivit-minerals/folic acid (MEN'S MULTIVITAMIN GUMMIES ORAL) Take by mouth. ALLERGIES: ALLERGIES No Known Allergies REVIEW of SYSTEMS: Constitutional: No weight loss, malaise or fevers. HEENT: Negative for frequent or significant headaches, No changes in hearing or vision, no nose bleeds or other nasal problems Respiratory: Negative for cough, wheezing, or shortness of breath Cardiovascular: Negative for chest pain and Positive for leg swelling and palpitations Gatrointestinal: Negative for abdominal discomfort, blood in stools or black stools or change in bowel habits Genitourinary: No history of dysuria, frequency, or incontinence Musculoskeletal: Negative for back pain and muscle pain and Positive for joint pain Endocrine: Negative for cold or heat intolerance, polyuria, polydipsia and goiter Hematology/Lymphatic: Negative for prolonged bleeding, bruising easily or swollen nodes Neurologic: No history or headaches, syncope, paralysis, seizures or tremors Integumentary: Negative for lesions, rash, and itching. PHYSICAL EXAM: VITALS: There were no vitals taken for this visit. General: Alert, oriented, cooperative, healthy appearance Integumentary: Normal color, no rash, no lesions. HEENT: EOM, pupils equal, round and reactive. Cardiovascular: Pulse regular. Lungs: No chest deformities or chest wall tenderness. Abdomen: Not examined Extremities: Varicose veins- right medial calf and ankle, hyperpigmentation, spider veins right ankle and foot Neurological: AAOx3. Normal cognition and motor skills. Vascular: Dorsalis Pedal Right: Normal - Left: Normal Diagnostic tests reviewed for today's visit: Most recent labs Most recent imaging IMPRESSION: Mr. Bello is a 34 year old male with symptomatic varicose veins, C4 . PLAN and RECOMMENDATIONS: Discussed venous pathology with patient Recommend trial of compression stockings, elevation and exercise Will get venous reflux testing and follow up to discuss results Prescription provided for compression stockings 20-30 mmHg and instructed on use SIGNATURE: Maya Sanchez DO PATIENT NAME: Roshan Bello DATE: July 29, 2024 TIME: 8:06 AM [facility] Telephone encounter Note * Telephone Encounter - Tiara Lozada RN - 07/25/2024 3:51 PM EST Pt called and is notified of providers results and instructions. Pt voices understanding. Tiara Lozada RN [facility]11-08-[facility]24 Miscellaneous Notes* Telephone Encounter - Tiara Lozada RN - 07/25/2024 3:51 PM EST Pt called and is notified of providers results and instructions. Pt voices understanding. Tiara Lozada RN * Telephone Encounter - Carol Cunningham APRN.CNP - 07/25/2024 3:41 PM EST Can you please call the patient and let him know that his ultrasound was negative for clot or vascular abnormality. I will be in touch with him once I review the rest of his lab results. I would likehim to continue with compression socks and may follow-up with vascular surgery for further evaluation. Please let me know if he has any questions. Thank you. Carol Cunningham APRN.NICO documented [facility] Telephone encounter Note * Telephone Encounter - Carol Cunningham APRN.CNP - 07/25/2024 3:41 PM EST Can you please call the patient and let him know that his ultrasound was negative for clot or vascular abnormality. I will be in touch with him once I review the rest of his lab results. I would likehim to continue with compression socks and may follow-up with vascular surgery for further evaluation. Please let me know if he has any questions. Thank you. Carol Cunningham APRN.CNP [facility]11-08-[facility] History of Present illness Narrative* Tangela Rivas RDMS - 07/25/2024 1:00 PM EST Radiology Service Progress Note PATIENT NAME: Roshan Bello DATE OF SERVICE: July 25, 2024 TIME: 3:22 PM PATIENT IDENTITY VERIFICATION COMPLETED USING TWO (2) IDENTIFIERS: Name and Date of confirmedby patient verbally. FALL SCREENING: Has the patient had 2 falls in the last year or 1 fall with injury or currently using an Ambulatory Assistive Device (Walker, Cane, Wheelchair, Crutches, etc.)? No PATIENT GENDER DATA: Male PATIENT RELEVANT IMPLANT DATA REVIEWED: Not Applicable PATIENT PRESENTS WITH AN IMPLANTABLE OR ATTACHED RESEARCH AND EVALUATION MANAGER: No RADIOLOGY DEPARTMENT: Ultrasound PERIPHERAL IV DATA: Not applicable SIGNED BY: Tangela Rivas RDMS July 25, 2024 3:22 PM documented in this encounterDay[facility]11-[facility]-2024 NoteHNO ID: [id number] Author: TANGELA RIVAS RDMS Service: ? Author Type: Foreign Law Consultant Type: Progress Notes Filed: 07/25/2024 15:22 Note Text: Radiology Service Progress Note PATIENT NAME: Roshan Bello DATE OF SERVICE: July 25, 2024 TIME: 3:22 PM PATIENT IDENTITY VERIFICATION COMPLETED USING TWO (2) IDENTIFIERS: Name and Date of confirmed by patient verbally. FALL SCREENING: Has the patient had 2 falls in the last year or 1 fall with injury or currently using an Ambulatory Assistive Device (Walker, Cane, Wheelchair, Crutches, etc.)? No PATIENT GENDER DATA: Male PATIENT RELEVANT IMPLANT DATA REVIEWED: Not Applicable PATIENT PRESENTS WITH AN IMPLANTABLE OR ATTACHED RESEARCH AND EVALUATION MANAGER: No RADIOLOGY DEPARTMENT: Ultrasound PERIPHERAL IV DATA: Not applicable SIGNED BY: Tangela Rivas RDMS July 25, 2024 3:22 [facility]11-07-2024 Instructions* Patient Instructions* Carol Cunningham APRN.CNP - 07/24/2024 2:57 PM EST Get labs and ultrasound completed Consult placed for vascular surgery, Dr. Sanchez Recommend using compression socks, elevate the legs when possible. Red flag symptoms go to ER Follow up pending test results. documented [facility]Day[facility] History of Present illness Narrative* Carol Cunningham APRN.CNP - 07/24/2024 2:40 PM EST This is a 34 year old male who presents today with: Patient presents with: Acute Visit: right ankle swollen and bruised HISTORY OF PRESENT ILLNESS: Roshan Bello is a 34 year old male. Patient presents with: Acute Visit: right ankle swollen and bruised Right ankle swelling, started about 1 year ago. No injury to the area. Not painful. Noticed some varicose veins. Ankle seems to be swollen. Swelling seems to be constant. No difficulty getting shoe on and no difficulty walking. Mother just diagnosed with DVT. Family history of factor V. PAST MEDICAL HISTORY: PAST MEDICAL HISTORY Diagnosis Date NEGATIVE MEDICAL HISTORY PAST SURGICAL HISTORY Procedure Laterality Date CHOLECYSTECTOMY HX 08/23/[address] Bennett LAPAROSCOPIC APPENDECTOMY 11/28/2016 ALLERGIES Patient has no known allergies. MEDICATIONS Current Outpatient Medications Medication Sig multivit-minerals/folic acid (MEN'S MULTIVITAMIN GUMMIES ORAL) Take by mouth. No current facility-administered medications for this visit. FAMILY HISTORY Problem Relation Age of Onset Diabetes Maternal Grandfather Alzheimer's Disease Maternal Grandfather Blood Clots Mother 60 Cancer Paternal Grandfather unknown Social History Tobacco Use Smoking status: Never Smokeless tobacco: Former Types: Snuff Tobacco comments: former chew, quit in 2016 Vaping Use Vaping status: Never Used Substance Use Topics Alcohol use: Yes Alcohol/week: 1.0 - 2.0 standard drink of alcohol Types: 1 - 2 Cans of Beer (12oz) per week Comment: weekend Drug use: Never REVIEW OF SYSTEMS GENERAL: No weight loss, malaise or fevers/chills HEENT: Negative for frequent or significant headaches, No changes in hearing or vision. NECK: Negative for lumps, goiter, pain and significant neck swelling RESPIRATORY: Negative for cough, hemoptysis, wheezing, dyspnea or shortness of breath CARDIOVASCULAR: Negative for chest pain, leg swelling, orthopnea, or palpitations GI: No nausea, vomiting, or diarrhea/constipation. No hematochezia/melena. No heartburn or reflux symptoms. : No history of dysuria, frequency or incontinence MUSCULOSKELETAL: + Ankle swelling SKIN: Negative for lesions, rash, and itching ENDOCRINE: Negative for cold or heat intolerance, polyuria, polydipsia and goiter NEURO: No history of headaches, syncope, paralysis, seizures or tremors MOOD: Negative for depression, anxiety, or suicidal ideation. EXAM: BP 130/87 Pulse 71 Resp 16 Wt 122.4 kg (269 lb 13.5 oz) SpO2 97% BMI 35.38 kg/m PHYSICAL EXAM: General Appearance: Well appearing, alert, in no acute distress, well-hydrated, well nourished. Skin: Skin color, texture, turgor normal, no suspicious rashes or lesions. Head: Normocephalic, no masses, lesions, tenderness or abnormalities. Eyes: Anicteric sclera. Extraocular movements are intact. Extremities: +1 non-pitting edema noted to right lower leg, ruddiness, varicose veins noted, good pedal pulses, negative homans sign. Musculoskeletal: No joint swelling, deformity, or tenderness. Full ROM of feet/ankles bilaterally, non-tender. Peripheral Pulses: Normal, Capillary refill <2secs, strong peripheral pulses, Pulses palpable. Neurologic: Gait normal. Reflexes normal and symmetric. Sensation grossly intact. ASSESSMENT/PLAN: 1. Swelling of lower leg - ICD9: 729.81, ICD10: M79.89 (primary diagnosis) - Get labs and US completed due to family history. - Recommend wearing compression socks. - Consult placed for vascular surgery - Red flag symptoms given to patient, he verbalizes understanding when to seek care - US LEG VEIN DVT UNL VAS LAB - COMPLETE BLOOD COUNT AND DIFFERENTIAL - CONSULT TO VASCULAR SURGERY - US DVT LOWER RIGHT 2. Family history of factor V deficiency - ICD9: V18.3, ICD10: Z83.2 - FACTOR V LEIDEN/PCR - COMPLETE BLOOD COUNT AND DIFFERENTIAL Follow-up pending test results or sooner as needed. Discussed treatment plan and patient voices understanding. Patient's questions answered appropriately. Medications and potential side effects were discussed and patient voices understanding. Carol Cunningham APRN.[employer] ASSOCIATE This note was partially generated using Visualase voice recognition system. Note was reviewed for accuracy. There may be minor misspellings or grammar miscues with Visualase voice recognition. documented in this encounterDay[facility]11-[facility]24 NoteHNO ID: [id number] Author: CAROL CUNNINGHAM APRN.CNP Service: ? Author Type: Nurse Practitioner Type: Progress Notes Filed: 07/24/2024 16:04 Note Text: This is a 34 year old male who presents today with: Patient presents with: Acute Visit: right ankle swollen and bruised HISTORY OF PRESENT ILLNESS: Roshan Bello is a 34 year old male. Patient presents with: Acute Visit: right ankle swollen and bruised Right ankle swelling, started about 1 year ago. No injury to the area. Not painful. Noticed some varicose veins. Ankle seems to be swollen. Swelling seems to be constant. No difficulty getting shoe on and no difficulty walking. Mother just diagnosed with DVT. Family history of factor V. PAST MEDICAL HISTORY: PAST MEDICAL HISTORY Diagnosis Date NEGATIVE MEDICAL HISTORY PAST SURGICAL HISTORY Procedure Laterality Date CHOLECYSTECTOMY HX 08/23/[address] Bennett LAPAROSCOPIC APPENDECTOMY 11/28/2016 ALLERGIES Patient has no known allergies. MEDICATIONS Current Outpatient Medications Medication Sig multivit-minerals/folic acid (MEN'S MULTIVITAMIN GUMMIES ORAL) Take by mouth. No current facility-administered medications for this visit. FAMILY HISTORY Problem Relation Age of Onset Diabetes Maternal Grandfather Alzheimer's Disease Maternal Grandfather Blood Clots Mother 60 Cancer Paternal Grandfather unknown Social History Tobacco Use Smoking status: Never Smokeless tobacco: Former Types: Snuff Tobacco comments: former chew, quit in 2016 Vaping Use Vaping status: Never Used Substance Use Topics Alcohol use: Yes Alcohol/week: 1.0 - 2.0 standard drink of alcohol Types: 1 - 2 Cans of Beer (12oz) per week Comment: weekend Drug use: Never REVIEW OF SYSTEMS GENERAL: No weight loss, malaise or fevers/chills HEENT: Negative for frequent or significant headaches, No changes in hearing or vision. NECK: Negative for lumps, goiter, pain and significant neck swelling RESPIRATORY: Negative for cough, hemoptysis, wheezing, dyspnea or shortness of breath CARDIOVASCULAR: Negative for chest pain, leg swelling, orthopnea, or palpitations GI: No nausea, vomiting, or diarrhea/constipation. No hematochezia/melena. No heartburn or reflux symptoms. : No history of dysuria, frequency or incontinence MUSCULOSKELETAL: + Ankle swelling SKIN: Negative for lesions, rash, and itching ENDOCRINE: Negative for cold or heat intolerance, polyuria, polydipsia and goiter NEURO: No history of headaches, syncope, paralysis, seizures or tremors MOOD: Negative for depression, anxiety, or suicidal ideation. EXAM: BP 130/87 Pulse 71 Resp 16 Wt 122.4 kg (269 lb 13.5 oz) SpO2 97% BMI 35.38 kg/m? PHYSICAL EXAM: General Appearance: Well appearing, alert, in no acute distress, well-hydrated, well nourished. Skin: Skin color, texture, turgor normal, no suspicious rashes or lesions. Head: Normocephalic, no masses, lesions, tenderness or abnormalities. Eyes: Anicteric sclera. Extraocular movements are intact. Extremities: +1 non-pitting edema noted to right lower leg, ruddiness, varicose veins noted, good pedal pulses, negative homans sign. Musculoskeletal: No joint swelling, deformity, or tenderness. Full ROM of feet/ankles bilaterally, non-tender. Peripheral Pulses: Normal, Capillary refill <2secs, strong peripheral pulses, Pulses palpable. Neurologic: Gait normal. Reflexes normal and symmetric. Sensation grossly intact. ASSESSMENT/PLAN: 1. Swelling of lower leg - ICD9: 729.81, ICD10: M79.89 (primary diagnosis) - Get labs and US completed due to family history. - Recommend wearing compression socks. - Consult placed for vascular surgery - Red flag symptoms given to patient, he verbalizes understanding when to seek care - US LEG VEIN DVT UNL VAS LAB - COMPLETE BLOOD COUNT AND DIFFERENTIAL - CONSULT TO VASCULAR SURGERY - US DVT LOWER RIGHT 2. Family history of factor V deficiency - ICD9: V18.3, ICD10: Z83.2 - FACTOR V LEIDEN/PCR - COMPLETE BLOOD COUNT AND DIFFERENTIAL Follow-up pending test results or sooner as needed. Discussed treatment plan and patient voices understanding. Patient's questions answered appropriately. Medications and potential side effects were discussed and patient voices understanding. Carol Cunningham APRN.CNP This note was partially generated using Visualase voice recognition system. Note was reviewed for accuracy. There may be minor misspellings or grammar miscues with Visualase voice recognition.[facility]04[facility] Miscellaneous Notes* Telephone Encounter - Katlin Morillo MA - 01/03/2024 9:03 AM EDT Patient active MyChart. Patient notified via [employer] message. Katlin Morillo MA * Telephone Encounter - Carol Cunningham APRN.CNP - 01/02/2024 7:29 PM EDT Can you please call the patient and let him know that I reviewed his lab results. Labs were all relatively normal. A1c was 5.6, no signs of diabetes however prediabetes does start at 5.7. I would recommend that he try to be mindful of processed foods in the diet, increase lean protein, vegetables, and get some form exercise. At this time I do not see any causes for his fatigue. I am concerned that the fatigue may be due tohis sleep apnea. I would recommend a follow-up with sleep medicine. Please let me know if he has any questions. Thank you. Carol Cunningham APRN.CNP documented in this encounterDayton [facility]04-15-2024 Instructions* Patient Instructions* Carol Cunningham APRN.CNP - 12/31/2023 9:54 AM EDT Images from the original note were not included. Get labs completed Recommend at home exercises to help with dizziness May use Dramamine or patches as needed. Stay well hydrated Be mindful with position changes Recommend follow up with sleep medicine. Follow up pending test results or sooner Natural supplements for mood: Adelina Alegria Ashwashaganda Dr. Cook in [place] Benign Paroxysmal Positional Vertigo (BPPV) What is BPPV? Benign Paroxysmal Positional Vertigo (BPPV) is an inner ear disorder in which changes to the position of the head, such as tipping the head backward, lead to sudden vertigo -- a feeling that the roomis spinning. Vertigo can vary in intensity from mild to severe and usually lasts only a few minutes. It may be accompanied by other symptoms, including dizziness lightheadedness a sense of imbalance nausea vomiting Anatomy of the right inner ear. Particle repositioning therapy moves the otoconia out of the semicircular canals and into the utricle where they dissolve naturally. BPPV is not a sign of a serious problem, and it usually disappears on its own within 6 weeks of thefirst episode. However, the symptoms of BPPV can be very frightening and may be dangerous, especially in older individuals. The unsteadiness associated with BPPV can lead to falls. About half of all people over age 65 experience an episode of BPPV, and falls are a leading cause of fractures in thisage-range. What causes BPPV? BPPV develops when calcium carbonate crystals, which are known as otoconia, shift into and become trapped within the semicircular canals (one of the vestibular organs of the inner ear that controls balance). The otoconia make up a normal part of the structure of the utricle, a vestibular organ nextto the semicircular canals. (see illustration to the right.) In the utricle, the otoconia may be loosened as a result of injury, infection, or age, and they land in a sac -- the utricle -- where they are naturally dissolved. However, otoconia in the semicircular canals will not dissolve. As a person s head position changes, the otoconia begin to roll around and push on the tiny hairs that line the semicircular canals. Those hairs act as sensors to give thebrain information about balance. Vertigo develops when the hairs are stimulated by the rolling otoconia. What head positions trigger BPPV? Movements that can trigger an episode of BPPV include rolling over or sitting up in bed, bending the head forward to look down, or tipping the head backward. In most people, only a single ear is affected by BPPV, although both ears may be involved on occasion. How is BPPV diagnosed and treated? With advances in medical technology, BPPV can easily be diagnosed and treated. The diagnosis can usually be made in the office based on medical history and a physical exam. Treatment also involves a short, simple in-office procedure known as the particle repositioning maneuver. (See addendum below.) How can I identify the affected side? Steps to determine affected side: Sit on bed so that if you lie down, your head hangs slightly over the end of the bed. Turn head to the right and lie back quickly. Wait 1 minute. If you feel dizzy, then the right ear is your affected ear. If no dizziness occurs, sit up. Wait 1 minute. Turn head to the left and lie back quickly. Wait 1 minute. If you feel dizzy, then the left ear is your affected ear. Right position Left position How successful is the treatment? A single particle repositioning procedure is effective in treating about 80% to 90% of cases of BPPV. Additional exercise or repositioning maneuvers may be needed if symptoms persist. Can BPPV recur? If so, what can I do? A new episode of BPPV can develop after successful treatment -- on average there is a 15 percent rate of recurrence each year. However, it may be possible to treat recurrent BPPV at home by performing a series of movements at the time an episode occurs. Patients will receive information on ways to handle recurrences on their own or they can work with a physical therapist to develop a plan. In general, if you wake up with positional vertigo, slowly move into the [id number] position andwait for a minute. Next, slowly move into a face-down position and slide to the foot of the bed. Keep your head down until you reach the end of the bed and are kneeling or standing on the floor. Slowly bring your head backward into an upright position. Hold on to the bed at all times. Another method is to sit toward the foot of the bed, leaving enough room to lay back with your headresting comfortably at the end of the bed, slightly extended. Be careful not to overextend your neck, as this may aggravate existing neck problems. If your symptoms are severe, you may need assistance to complete the maneuver. Follow the same steps as described in the boxed instructions on the next page. Without treatment, the symptoms of BPPV may worsen. However, with time, the otoconia dissolve on their own, which is usually within 6 weeks. Until the time the otoconia dissolve on their own, the number and severity of episodes may be reduced simply by paying careful attention to head position. In addition, anti- motion sickness drugs can be given to control nausea. However, before drugs are taken, it is usually best to try the particle repositioning procedure first. It is a very safe and rapid way to relieve symptoms and reduce the chance for falls. Medications should not be taken for a long period of time. ADDENDUM Particle repositioning procedure: [id number] instructions The particle repositioning procedure takes about 15 minutes to complete and involves a series of physical movements that change the position of the head and body. These actions shift the otoconia outof the semicircular canals and back into their proper location in the utricle. The particle repositioning procedure begins with the patient is sitting up and then lying down on a treatment table. Theprocedure is very easy to perform. Patients should wear comfortable clothing that will allow them to move freely. Hold each of the following positions for 1 to 2 minutes. Step 1: Turn your head toward your affected ear. Step 2: Lay back quickly. Hold. Step 3: Keep your head back against the bed and turn it toward the good ear. Hold. Step 4: Roll onto your side with your good ear down. Your nose should be turned toward the floor. Hold. Step 5: Sit up, keeping your chin tucked in toward your shoulder. Hold. When you end, you should besitting over the side of your bed so your feet touch the floor. Step 6: Follow your post-particle repositioning instructions. BPPV: Glossary of Terms Semicircular canals: These structures act like a gyroscope, with canals positioned in three dimensions -- upward, downward, and horizontal. Together, the canals send signals to the brain about the rotation/positioning of the head (for example, when you bend over or spin around.) Cupula: Detects the flow of fluid within the semicircular canals. The flow of fluid gives the body a sense of motion. Utricle: An organ located in the inner ear that helps control balance. The utricle contains hair cells, which are covered with otoconia. The otoconia sway with gravity, sending signals to the brain about the position of the head and body (upright, tilted, etc). Otoconia: The tiny calcium crystal particles that become dislodged from within the utricle (where they can dissolve) and move into the semicircular canals (where they can t dissolve). Cochlea: The 'snail-shell' sense organ of the inner ear that translates sound into nerve impulses and sent to the brain. References Asad BT, Stefano LB. Trung GONCALVES. Peripheral Vestibular Disorders. In: [facility], 3-Volume Set. Thierry; 2014. Pernell Sanon. Benign Paroxysmal Positional Vertigo (BPPV): History, Pathophysiology, Office Treatment and Future Directions. International Journal of Otolaryngology. 2011;2011:171398. Ana Paula JS, Alyce DS. Clinical practice. Benign paroxysmal positional vertigo. N Engl J Med. 2014 Dec 04;370(12):1138-47. Ariana JUNIOR, Jorge A STARR, Jared Reese, Ramesh MCLAUGHLIN. The Head and Neck. In: Jorge A Toribio DD, Jared Reese, Ramesh MCLAUGHLIN. eds. DeGsalvadorin s Diagnostic Examination, 10e. [place], [place]: [facility]; 2015. Copyright 3761-1451 The [facility]. All rights reserved This information is provided by the [facility] and is not intended to replace the medical advice of your doctor or health care provider. Please consult your health care provider for advice about a specific medical condition. For additional health information, please contact the Center for Consumer Health Information at the [facility] or toll-free extension [phone]. If you prefer, you may visit [email or web address] or [email or web address]. This document was last reviewed on: 2015 documented in this encounterDayton Osteopathic Hospital04-15-2024 History of Present illness Narrative* Carol Cunningham APRN.CNP - 12/31/2023 9:20 AM EDT This is a 33 year old male who presents today with: Patient presents with: Acute Visit: fatigue and sometimes vertigo and diarrhea HISTORY OF PRESENT ILLNESS: Roshan Bello is a 33 year old male. Patient presents with: Acute Visit: fatigue and sometimes vertigo and diarrhea Here in the office for several concerns Fatigue: Past 6 months, waking up feeling tired. refers that he has been snoring. Has a CPAP but has not been using it. Does not tolerate mask. Getting up at 2 am and starts work at 3 am. Has seen sleep medicine in the past. Vetigo: Has been having episodes that started about 1 month ago. Had a viral illness in November. Refers he feels off at times. Had 1 epsiode at work eating, got a bout of dizziness. Tried to stand upand felt off balance, no tunnel vision. Had to get a ride home. Lasted about 30 minutes. Refers he had another episode looking over the left shoulder while driving. Had similar symptoms over 8 years which just randomly resolved. No chest pain, palpitations, or edema. PAST MEDICAL HISTORY: PAST MEDICAL HISTORY Diagnosis Date NEGATIVE MEDICAL HISTORY PAST SURGICAL HISTORY Procedure Laterality Date CHOLECYSTECTOMY HX 08/23/[address] Bennett LAPAROSCOPIC APPENDECTOMY 11/28/2016 ALLERGIES Patient has no known allergies. MEDICATIONS No current outpatient medications on file. No current facility-administered medications for this visit. FAMILY HISTORY Problem Relation Age of Onset Diabetes Maternal Grandfather Alzheimer's Disease Maternal Grandfather Blood Clots Mother 60 Cancer Paternal Grandfather unknown Social History Tobacco Use Smoking status: Never Smokeless tobacco: Former Types: Snuff Tobacco comments: former chew, quit in 2016 Vaping Use Vaping Use: Never used Substance Use Topics Alcohol use: Yes Alcohol/week: 1.0 - 2.0 standard drink of alcohol Types: 1 - 2 Cans of Beer (12oz) per week Comment: weekend Drug use: Never REVIEW OF SYSTEMS GENERAL: + Fatigue HEENT: Negative for frequent or significant headaches, No changes in hearing or vision. NECK: Negative for lumps, goiter, pain and significant neck swelling RESPIRATORY: Negative for cough, hemoptysis, wheezing, dyspnea or shortness of breath CARDIOVASCULAR: Negative for chest pain, leg swelling, orthopnea, or palpitations GI: No nausea, vomiting, or diarrhea/constipation. No hematochezia/melena. No heartburn or reflux symptoms. : No history of dysuria, frequency or incontinence MUSCULOSKELETAL: Negative for joint pain or swelling. SKIN: Negative for lesions, rash, and itching ENDOCRINE: Negative for cold or heat intolerance, polyuria, polydipsia and goiter NEURO: + Dizziness/Vertigo MOOD: Negative for depression, anxiety, or suicidal ideation. EXAM: BP 120/80 Pulse 70 Resp 16 Wt 119.7 kg (264 lb) SpO2 97% BMI 34.61 kg/m PHYSICAL EXAM: General Appearance: Well appearing, alert, in no acute distress, well-hydrated, well nourished. Skin: Skin color, texture, turgor normal, no suspicious rashes or lesions. Head: Normocephalic, no masses, lesions, tenderness or abnormalities. Eyes: Anicteric sclera. Pupils are equally round and reactive to light. Extraocular movements are intact. Ears: External ears normal, canals clear. TMs pearly haynes. Neck: Supple, no adenopathy; thyroid symmetric, normal size, no bruits. Lungs: Lungs clear to auscultation. No wheezing, rhonchi, rales. Heart: RRR without murmur, gallop, or rubs. No ectopy. Extremities: No deformities, edema, skin discoloration, clubbing or cyanosis. Good capillary refill. Peripheral Pulses: Normal. Neurologic: Gait normal. Reflexes normal and symmetric. Sensation grossly intact. Positive Scotia-Hallpike bilaterally, no nystagmus. ASSESSMENT/PLAN: 1. Fatigue, unspecified type - ICD9: 780.79, ICD10: R53.83 (primary diagnosis) - Get labs completed - Recommend follow up with sleep medicine to discuss CPAP - COMPLETE BLOOD COUNT AND DIFFERENTIAL - COMPREHENSIVE METABOLIC PANEL - THYROID STIMULATING HORMONE - T4 FREE/FREE THYROXINE - VITAMIN D 25 HYDROXY - VITAMIN B12 - FOLATE, SERUM - IRON AND TIBC 2. BPPV (benign paroxysmal positional vertigo), unspecified laterality - ICD9: 386.11, ICD10: H81.10 - Symptoms consistent with BPPV. - Recommend at home exercises to help with symptoms. - May use [id number] Dramamine or scopolamine patches. - If symptoms do not improve discussed possible vestibular physical therapy in the future. 3. Screening for diabetes mellitus - ICD9: V77.1, ICD10: Z13.1 - HEMOGLOBIN A1C Follow-up pending test results or sooner as needed. Discussed treatment plan and patient voices understanding. Patient's questions answered appropriately. Medications and potential side effects were discussed and patient voices understanding. Carol Cunningham APRN.SCHOOL AGE PROGRAM ASSOCIATE This note was partially generated using FoodText system. Note was reviewed for accuracy. There may be minor misspellings or grammar miscues with invinoon voice recognition. documented in this encounterDayton [facility] Hospital03-11-2024 History of Present illness Narrative* Elton Hernandez APRN.CNP - 11/26/2023 9:20 AM EDT Subjective HPI Nontoxic-appearing male presents urgent care chief complaint head cold. Duration of symptoms 1 week. Associated symptoms cough chest congestion. States yesterday he did have significant dizziness. States dizziness started to become worse throughout the day. States there is about 1/2-hour where he had trouble walking and vomited multiple times due to severity of dizziness. History of vertigo this is different. Past medical history prescription medications allergies reviewed. .Patient presents with: Head Congestion: cough x 1 week, increased x yesterday PAST MEDICAL HISTORY Diagnosis Date NEGATIVE MEDICAL HISTORY PAST SURGICAL HISTORY Procedure Laterality Date CHOLECYSTECTOMY HX 08/23/[address] Bennett LAPAROSCOPIC APPENDECTOMY 11/28/2016 ALLERGIES Patient has no known allergies. MEDICATIONS No prescriptions on file. FAMILY HISTORY Problem Relation Age of Onset Diabetes Maternal Grandfather Alzheimer's Disease Maternal Grandfather Blood Clots Mother 60 Cancer Paternal Grandfather unknown Social History Tobacco Use Smoking status: Never Smokeless tobacco: Former Types: Snuff Tobacco comments: former chew, quit in 2016 Vaping Use Vaping Use: Never used Substance Use Topics Alcohol use: Yes Alcohol/week: 1.0 - 2.0 standard drink of alcohol Types: 1 - 2 Cans of Beer (12oz) per week Comment: weekend Drug use: Never BP 122/76 Pulse 76 Temp 36.6 C (97.8 F) Resp 16 Wt 116.9 kg (257 lb 11.5 oz) SpO2 98% BMI 33.79 kg/m Review of Systems Constitutional: Negative for chills, fever and malaise/fatigue. HENT: Negative for congestion, ear discharge, ear pain, sinus pain and sore throat. Eyes: Negative for blurred vision, pain, discharge and redness. Respiratory: Positive for cough. Negative for hemoptysis, sputum production, shortness of breath, wheezing and stridor. Cardiovascular: Negative for chest pain. Gastrointestinal: Negative for abdominal pain, diarrhea, nausea and vomiting. Musculoskeletal: Negative for myalgias. Skin: Negative for itching and rash. Neurological: Positive for dizziness. Negative for headaches. Objective Physical Exam Constitutional: General: He is not in acute distress. Appearance: He is not diaphoretic. HENT: Head: Normocephalic. Jaw: No trismus, tenderness, swelling or pain on movement. Right Ear: Tympanic membrane, ear canal and external ear normal. Left Ear: Tympanic membrane, ear canal and external ear normal. Nose: Congestion present. Mouth/Throat: Mouth: Mucous membranes are moist. Pharynx: Oropharynx is clear. Uvula midline. No pharyngeal swelling, oropharyngeal exudate, posterior oropharyngeal erythema or uvula swelling. Eyes: Conjunctiva/sclera: Conjunctivae normal. Pupils: Pupils are equal, round, and reactive to light. Cardiovascular: Rate and Rhythm: Normal rate and regular rhythm. Heart sounds: Normal heart sounds. Pulmonary: Effort: Pulmonary effort is normal. No tachypnea, accessory muscle usage or respiratory distress. Breath sounds: Normal breath sounds. No stridor. No wheezing, rhonchi or rales. Abdominal: General: There is no distension. Palpations: Abdomen is soft. Tenderness: There is no abdominal tenderness. There is no guarding or rebound. Musculoskeletal: Cervical back: Normal range of motion and neck supple. No edema, erythema, rigidity or tenderness. No pain with movement. Normal range of motion. Lymphadenopathy: Cervical: No cervical adenopathy. Skin: General: Skin is warm and dry. Neurological: Mental Status: He is alert and oriented to person, place, and time. ASSESSMENT/PLAN: 1. Viral illness - ICD9: 079.99, ICD10: B34.9 (primary diagnosis) 2. Dizziness - ICD9: 780.4, ICD10: R42 Diagnosed with viral illness. No evidence of bacterial infection on today's exam. Additionally diagnosed with dizziness. Patient states feeling off today. Vision is still not right. With the severity of dizziness I recommended patient be seen in the ED for further evaluation care. Verbalized understanding agrees with plan of care. Elton Hernandez APRN.SCHOOL AGE PROGRAM ASSOCIATE documented in this encounterDayton [facility] Hospital12-01-2023 History of Present illness Narrative* Alexia Lopez PA-C - 08/17/2023 5:23 PM EST This note was created using NextUserriter. Subjective Roshan Bello is a 33 year old male. HPI Presents with a chief complaint of a right index finger injury. He states he smashed the finger andcut it on a tongue jessy today about an hour ago. His last Tdap was over 10 years he wanted a tetanus update. Some mild pain with moving the finger. No numbness. He did clean it out well at home. Still has a little bit of bleeding. No other injuries. Review of Systems Constitutional: Negative. HENT: Negative. Respiratory: Negative. Cardiovascular: Negative. Gastrointestinal: Negative. Musculoskeletal: Laceration right index finger All other systems reviewed and are negative. PAST MEDICAL HISTORY Diagnosis Date NEGATIVE MEDICAL HISTORY No current outpatient medications on file. No current facility-administered medications for this visit. PAST SURGICAL HISTORY Procedure Laterality Date CHOLECYSTECTOMY HX 08/23/[address] Bennett LAPAROSCOPIC APPENDECTOMY 11/28/2016 FAMILY HISTORY Problem Relation Age of Onset Diabetes Maternal Grandfather Alzheimer's Disease Maternal Grandfather Blood Clots Mother 60 Cancer Paternal Grandfather unknown Social History Tobacco Use Smoking status: Never Smokeless tobacco: Former Types: Snuff Tobacco comments: former chew, quit in 2016 Vaping Use Vaping Use: Never used Substance Use Topics Alcohol use: Yes Alcohol/week: 1.0 - 2.0 standard drink of alcohol Types: 1 - 2 Cans of Beer (12oz) per week Comment: weekend Drug use: Never Objective BP 130/85 Pulse 77 Temp 36.6 C (97.8 F) Resp 20 Wt 121.1 kg (267 lb) SpO2 97% BMI 35.01kg/m Physical Exam Vitals reviewed. Constitutional: Appearance: Normal appearance. HENT: Head: Normocephalic and atraumatic. Musculoskeletal: Comments: Patient has a 2 cm flap laceration over the proximal phalanx palmar side of the right index finger. Some mild bleeding. Full range of motion of the MCP PIP and DIP. Some tenderness over theproximal phalanx. No foreign body visualized. No tendon involvement. Skin: General: Skin is warm and dry. Neurological: Mental Status: He is alert. Procedure: laceration repair Verbal permission given after discussing risk/benefit Wound cleansed with copious normal saline and wound edges scrubbed with chlorhexidine. In sterile fashion 2 cc of 1% lidocaine injected locally for anesthetic. 4 simple interrupted sutures using 4-0 Prolene to approximate wound. No immediate complications. Patient tolerated procedure well. Assessment and Plan ASSESSMENT/PLAN: 1. Injury of index finger, initial encounter - ICD9: 959.5, ICD10: S69.90XA (primary diagnosis) X-rays of the finger are negative for fracture. I did repair the wound with 4 simple interrupted sutures. Discussed wound care. Tdap updated today. Suture removal in 7 to 10 days. Patient agreeable with plan. - XR DIGIT GENERAL 3V FRONTAL/LAT/OBL RIGHT 2. Laceration of right index finger without foreign body without damage to nail, initial encounter - ICD9: 883.0, ICD10: S61.210A Alexia Lopez PA-C documented in this encounterDayton [facility] Hospital12-01-2023 Instructions* Patient Instructions* Alexia Lopez PA-C - 08/17/2023 5:16 PM EST Keep clean dry, covered. Wash daily with soap and water. Suture removal in 7-10 days. If you have increased redness, pus like drainage, increased pain, or fever be seen again. No tub soaking or swimming or submerging in water completely until sutures removed. documented in this encounterDayton Oste[facility] Hospital08-04-2023 Instructions* Patient Instructions* Marty Cheema APRN.SCHOOL AGE PROGRAM ASSOCIATE - 04/20/2023 10:20 AM EDT GOUT: You have an acute joint inflammation called gout. Gout is caused by uric acid crystals forming in the joint. Often uric acid levels in the blood are also elevated. Gout occurs most commonly in men and appears to be an inherited condition. Diuretics (water pills) tend to elevate blood uric acid levels and can cause similar joint problems. The big toe, foot, ankle, and knee are the joints most often affected. Treatment includes: Rest and elevate the affected limb until the swelling and pain are better. Use a frame to keep the sheets off your leg as needed. Anti-inflammatory medicine usually brings about dramatic relief of pain , redness, and swelling within 2-3 days. Increase your fluid intake, avoid alcohol, and do not eat liver, sweetbreads, or sardines. Long-term management may require medicine to lower blood uric acid levels or stopping diuretic therapy. Please see your doctor if your condition is not better after 1-2 days of treatment, or if you have fever, skin rash, diarrhea, or other joint pains. documented in this encounterDayton Oste[facility] Hospital08-04-2023 History of Present illness Narrative* Marty Cheema APRN.CNP - 04/20/2023 9:34 AM EDT Images from the original note were not included. Subjective HPI HPI Roshan Bello is a 33 year old male who presents today for CC of left foot pain. This started 5 dsays ago. Has tried otc medication for relief. Symptoms are worsened by walking. Denies injury. Denies history of surgery or injury to right foot. Denies numbness and tingling of right foot. .Patient presents with: Pain (foot): R foot pain and swelling x5 days, unknown cause or injury PAST MEDICAL HISTORY Diagnosis Date NEGATIVE MEDICAL HISTORY PAST SURGICAL HISTORY Procedure Laterality Date CHOLECYSTECTOMY HX 08/23/[address] Bennett LAPAROSCOPIC APPENDECTOMY 11/28/2016 ALLERGIES Patient has no known allergies. MEDICATIONS No prescriptions on file. FAMILY HISTORY Problem Relation Age of Onset Diabetes Maternal Grandfather Alzheimer's Disease Maternal Grandfather Blood Clots Mother 60 Cancer Paternal Grandfather unknown Social History Tobacco Use Smoking status: Never Smokeless tobacco: Former Types: Snuff Tobacco comments: former chew, quit in 2016 Vaping Use Vaping Use: Never used Substance Use Topics Alcohol use: Yes Alcohol/week: 2.5 - 5.0 standard drinks of alcohol Types: 1 - 2 Cans of Beer (12oz) per week Comment: weekend Drug use: Never ROS Objective Blood pressure 128/76, pulse 80, temperature 36.1 C (97 F), resp. rate 18, weight 119.1 kg (262 lb 9.6 oz), SpO2 98 %. Physical Exam Constitutional: General: He is not in acute distress. Appearance: He is not toxic-appearing or diaphoretic. HENT: Head: Normocephalic and atraumatic. Pulmonary: Effort: Pulmonary effort is normal. No accessory muscle usage or respiratory distress. Musculoskeletal: Feet: Neurological: Mental Status: He is alert and oriented to person, place, and time. ASSESSMENT/PLAN: 1. Foot pain, right - ICD9: 729.5, ICD10: M79.67 Possible gout -no bony abnormality noted on xray -Rest, Ice, Compression, Elevation discussed -follow up with primary care if symptoms persist/worsen in 10-14 days - XR FOOT GENERAL 3V AP/LAT/OBL RIGHT IMPRESSION: No acute osseous abnormality Dictated by : DEJA HO MD - PREDNISONE 10 MG TABLET Marty Cheema APRN.SCHOOL AGE PROGRAM ASSOCIATE documented in this encounterDayton [facility] Hospital08-04-2023 History of Present illness Narrative* Erinn Feliciano RT(R) - 04/20/2023 9:10 AM EDT Radiology Service Progress Note PATIENT NAME: Roshan Bello DATE OF SERVICE: April 20, 2023 TIME: 9:13 AM PATIENT IDENTITY VERIFICATION COMPLETED USING TWO (2) IDENTIFIERS: Name and Date of confirmedby patient verbally. FALL SCREENING: Has the patient had 2 falls in the last year or 1 fall with injury or currently using an Ambulatory Assistive Device (Walker, Cane, Wheelchair, Crutches, etc.)? No PATIENT GENDER DATA: Male PATIENT RELEVANT IMPLANT DATA REVIEWED: Not Applicable RADIOLOGY DEPARTMENT: General X-ray: Exam(s) Completed: Lower Extremity X- Ray(s): Foot, Right and Wt. Bearing PERIPHERAL IV DATA: Not applicable SIGNED BY: RT Essie(R) April 20, 2023 9:13 AM documented in this encounterDayton Oste[facility] Hospital01-11-2023 Instructions* Patient Instructions* Carol Cunningham APRN.CNP - 09/27/2022 5:50 PM EST Get fasting labs completed, no food 8 hours prior. May have black coffee and water. Orders are goodfor 2 months. May try 1/2 tablet ,25 mg at bed time. If needed may increase to 1 tablet. Take about 30 minutes prior to bed. Allow 6-8 hours. Stay well hydrated. Continue to eat a well balanced diet and get some form of exercise. Bruise on right calf should heal on its own. Follow up in 1 year or sooner as needed. Health Promotion: - Eat healthy -- go to [email or web address] to get started - Have a yearly physical - Get at least 30 minutes of physical activity daily - Get at least 7 to 8 hours of sleep each night - Reach and maintain a healthy weight - Get help to quit or don't start smoking - Limit alcohol use to one drink or less - Do not use illegal drugs or misuse prescription drugs - Wear a helmet when riding a bike and wear protective gear for sports - Wear a seatbelt in cars and not text and drive - Wear sunscreen Vitamins: Santos-e natural mood booster. documented in this encounterDayton [facility] Hospital01-11-2023 History of Present illness Narrative* Carol Cunningham APRN.CNP - 09/27/2022 5:20 PM EST This is a 32 year old male who presents today with: Patient presents with: Physical HISTORY OF PRESENT ILLNESS: Roshan Bello is a 32 year old male. Patient presents with: Physical Here in the office for wellness exam. Diet: Eating a well balanced diet. Exercise: Staying active at work would like to start exercise. Vision: Had exam, wears contacts. Dental: Has appt coming up. No difficulties. Sleep: Sleeping about 4 hours. Starting using Cpap. Starts work at 3 am. Difficulty falling asleep. Will start to over think. Has tried melatonin in the past. Mood:Denies any increased sadness, anxiety, or SI/Hi. with 3 children, 2, 5, and 12. JESSICA: Using CPAP nightly, tolerating the mask well. Right Knee: Noticed swelling behind the knee/posterior leg this morning. Large bruise with mild tenderness. No injury to the area. Working as electrical maintenance supervisor. Vaccines: Due for Tdap. Denies wanting any vaccines at this time. PAST MEDICAL HISTORY: PAST MEDICAL HISTORY Diagnosis Date NEGATIVE MEDICAL HISTORY PAST SURGICAL HISTORY Procedure Laterality Date CHOLECYSTECTOMY HX 08/23/[address] Bennett LAPAROSCOPY, SURGICAL, APPENDECTOMY 11/28/2016 ALLERGIES Patient has no known allergies. MEDICATIONS No current outpatient medications on file. No current facility-administered medications for this visit. FAMILY HISTORY Problem Relation Age of Onset Diabetes Maternal Grandfather Alzheimer's Disease Maternal Grandfather Blood Clots Mother 60 Cancer Paternal Grandfather unknown Social History Tobacco Use Smoking status: Never Smokeless tobacco: Former Types: Snuff Tobacco comments: former chew, quit in 2016 Vaping Use Vaping Use: Never used Substance Use Topics Alcohol use: Yes Alcohol/week: 2.5 - 5.0 standard drinks Types: 1 - 2 Cans of Beer (12oz) per week Comment: weekend Drug use: Never REVIEW OF SYSTEMS GENERAL: No weight loss, malaise or fevers/chills HEENT: Negative for frequent or significant headaches, No changes in hearing or vision. NECK: Negative for lumps, goiter, pain and significant neck swelling RESPIRATORY: Negative for cough, hemoptysis, wheezing, dyspnea or shortness of breath CARDIOVASCULAR: Negative for chest pain, leg swelling, orthopnea, or palpitations GI: No nausea, vomiting, or diarrhea/constipation. No hematochezia/melena. No heartburn or reflux symptoms. : No history of dysuria, frequency or incontinence MUSCULOSKELETAL: Negative for joint pain or swelling. SKIN: + Swelling behind right knee ENDOCRINE: Negative for cold or heat intolerance, polyuria, polydipsia and goiter NEURO: No history of headaches, syncope, paralysis, seizures or tremors MOOD: Negative for depression, anxiety, or suicidal ideation. + Difficulty with sleep EXAM: BP 136/84 Pulse 85 Resp 16 Ht 186 cm (6' 1.23) Wt 122 kg (269 lb) SpO2 96% BMI 35.27 kg/m PHYSICAL EXAM: General Appearance: Well appearing, alert, in no acute distress, well-hydrated, well nourished.. Skin: + Bruising noted to posterior thigh, Mild tenderness. Head: Normocephalic, no masses, lesions, tenderness or abnormalities. Eyes: Anicteric sclera. Pupils are equally round and reactive to light. Extraocular movements are intact. Ears: External ears normal, canals clear. TMs pearly haynes. Neck: Supple, no adenopathy; thyroid symmetric, normal size, no bruits. Lungs: Lungs clear to auscultation. No wheezing, rhonchi, rales. Heart: RRR without murmur, gallop, or rubs. No ectopy. Abdomen: Normal abdominal exam, Abdomen soft, non-tender. Bowel sounds normal. No masses, organomegaly, Negative CVA tenderness. Extremities: No deformities, edema, skin discoloration, clubbing or cyanosis. Good capillary refill. Musculoskeletal: No joint swelling, deformity, or tenderness. Peripheral Pulses: Normal, Capillary refill <2secs, strong peripheral pulses, Pulses palpable. Neurologic: Gait normal. Sensation grossly intact. Mood: Pleasant, good eye contact, engaged ASSESSMENT/PLAN: 1. Wellness examination - ICD9: V70.0, ICD10: Z00.00 (primary diagnosis) - Counseled on healthy diet and regular exercise - Discussed need for and benefit of weight loss. BMI 35.27 kg/(m^2) - Depression screening tool completed and reviewed with patient. Based on score and interview, patient is not at risk for depression and recommended no further intervention at this time. - Follow up for annual exam in one year - COMP METABOLIC PANEL 2. JESSICA (obstructive sleep apnea) - ICD9: 327.23, ICD10: G47.33 - Continue with CPAP 3. Difficulty sleeping - ICD9: 780.50, ICD10: G47.9 - May try Trazodone 1/2 to 1 tablet prior to sleep. - Medication education and instructions provided. - TRAZODONE 50 MG TABLET 4. Bruise - ICD9: 924.9, ICD10: T14.8XXA - Self-limiting, should heal on its own. 5. Screening for diabetes mellitus - ICD9: V77.1, ICD10: Z13.1 - HGB A1C 6. Screening cholesterol level - ICD9: V77.91, ICD10: Z13.220 - LIPID PANEL BASIC Follow-up in 1 year or sooner as needed. Discussed treatment plan and patient voices understanding. Patient's questions answered appropriately. Medications and potential side effects were discussed and patient voices understanding. Carol Cunningham APRN.NICO This note was partially generated using Visualase voice recognition system. Note was reviewed for accuracy. There may be minor misspellings or grammar miscues with invinoon voice recognition. [facility] History of Present illness Narrative* Erinn Feliciano RT(R) - 06/20/2021 9:10 AM EDT Radiology Service Progress Note PATIENT NAME: Roshan Bello DATE OF SERVICE: June 20, 2021 TIME: 9:11 AM PATIENT IDENTITY VERIFICATION COMPLETED USING TWO (2) IDENTIFIERS: Name and Date of confirmedby patient verbally. FALL SCREENING: Has the patient had 2 falls in the last year or 1 fall with injury or currently using an Ambulatory Assistive Device (Walker, Cane, Wheelchair, Crutches, etc.)? No PATIENT GENDER DATA: Male PATIENT RELEVANT IMPLANT DATA REVIEWED: Not Applicable RADIOLOGY DEPARTMENT: General X-ray: Exam(s) Completed: Lower Extremity X- Ray(s): Ankle, Right and Wt. Bearing PERIPHERAL IV DATA: Not applicable SIGNED BY: RT Essie(R) June 20, 2021 9:11 AM [facility] Diagnosis Wellness examination- Primary JESSICA (obstructive sleep apnea) Obstructive sleep apnea (adult) (pediatric) Difficulty sleeping Sleep disturbance, unspecified Bruise Contusion of unspecified site Screening for diabetes mellitus Screening cholesterol level Screening for lipoid disorders documented in this encounter [facility]* Diagnosis Foot pain, right- Primary Pain in limb documented in this encounter [facility]* Diagnosis Injury of index finger, initial encounter- Primary Laceration of right index finger without foreign body without damage to nail, initial encounter [facility]* Diagnosis Viral illness- Primary Unspecified viral infection, in conditions classified elsewhere and of unspecified site Dizziness Dizziness and giddiness documented in this encounter [facility]* Diagnosis Fatigue, unspecified type- Primary BPPV (benign paroxysmal positional vertigo), unspecified laterality Screening for diabetes mellitus documented in this encounter [facility]* Diagnosis Injury of index finger, initial encounter documented in this encounter [facility]* Diagnosis Acute right ankle pain documented in this encounter [facility]* Diagnosis Swelling of lower leg- Primary Family history of factor V deficiency Family history of other blood disorders documented in this encounter [facility]* Diagnosis Swelling of lower leg documented in this encounter [facility]* Diagnosis Symptomatic varicose veins of right lower extremity- Primary Swelling of lower leg Venous (peripheral) insufficiency Unspecified venous (peripheral) insufficiency documented in this encounter [facility]* Diagnosis Acute cough- Primary documented in this encounter [facility]* Diagnosis Venous (peripheral) insufficiency- Primary Unspecified venous (peripheral) insufficiency Symptomatic varicose veins of right lower extremity documented in this encounter [facility] noteNo assessment information availableWThe [facility] Work Phone: Evaluation note* Diagnosis Onset Date Resolution Status Admit Date Esophageal dysfunction acute Au 2024 9:58am Fecal urgency acute April 9:58am Gas bloat syndrome acute May 04, 2025 9:58am [facility] Work Phone: Reason for referral (narrative)* Diagnostic Procedure Only (Urgent) - Closed Specialty Diagnoses / Procedures Referred By Jonah flowers Referred To Contact XR IMAGING Diagnoses Foot pain, right Procedures XR FOOT GENERAL 3V AP/LAT/OBL RIGHT RADEX FOOT COMPLETE MINIMUM 3 VIEWS Marty Cheema APRN.CNP [address] [place] [address] Xr Imaging Referral ID Status Reason Start Date Expiration Date V isits Requested Visits Authorized [id number] Closed Auto-Generate d Referral 04/20/2023 05/19/2024 1 1 [facility] for referral (narrative)* Diagnostic Procedure Only (Urgent) - Closed Specialty Diagnoses / Procedures Referred By Contac t Referred To Contact XR IMAGING Diagnoses Injury of index finger, initial encounter Procedures XR DIGIT GENERAL 3V FRONTAL/LAT/OBL RIGHT RADEX FINGR MINIMUM 2 VIEWS Alexia Lopez PA-C [address] [place] [address] [place] [address] Referral ID Status Reason Start Date Expiration Date V isits Requested Visits Authorized [id number] Closed Auto-Generate d Referral 08/17/2023 09/15/2024 1 1 [facility] for referral (narrative)* Diagnostic Procedure Only (Urgent) - Closed Specialty Diagnoses / Procedures Referred By Contac t Referred To Contact XR IMAGING Diagnoses Injury of index finger, initial encounter Procedures XR DIGIT GENERAL 3V FRONTAL/LAT/OBL RIGHT RADEX FINGR MINIMUM 2 VIEWS Alexia Lopez PA-C [address] [place] [address] [place] [address] Referral ID Status Reason Start Date Expiration Date V isits Requested Visits Authorized [id number] Closed Auto-Generate d Referral 08/17/2023 09/15/2024 1 1 [facility] for referral (narrative)* Diagnostic Procedure Only (Urgent) - Closed Specialty Diagnoses / Procedures Referred By Contac t Referred To Contact XR IMAGING Diagnoses Acute right ankle pain Procedures XR ANKLE GENERAL 3V AP/LAT/OBL RT X-RAY ANKLE MINIMUM 3 VIEWS Kaylynn Mixon, SCHOOL AGE PROGRAM ASSOCIATE [address] [place] [address] [place] [address] Referral ID Status Reason Start Date Expiration Date V isits Requested Visits Authorized [id number] Closed Auto-Generate d Referral 06/19/2021 07/19/2022 1 1 [facility] for referral (narrative)* Diagnostic Procedure Only (Urgent) - Authorized Specialty Diagnoses / Procedures Referred By Jonah flowers Referred To Contact US IMAGING Diagnoses Swelling of lower leg Procedures US DVT LOWER RIGHT DUP-SCAN XTR VEINS UNILATERAL/LIMITED STUDY Carol Cunningham APRN.SCHOOL AGE PROGRAM ASSOCIATE [address] [place] [address] [place] [address] Referral ID Status Reason Start Date Expiration Date Visits Requested Visits Authorized [id number] Authorized Auto-Generat ed Referral 07/24/2024 08/23/2025 1 1 * Consult, Test, Treat (Routine) - Authorized Specialty Diagnoses / Procedures Referred By Jonah flowers Referred To Contact Vascular Surgery Diagnoses Swelling of lower leg Procedures CONSULT TO VASCULAR SURGERY OFFICE/OUTPATIENT [facility] 60 MINUTES Carol Cunningham APRN.CNP [address] [place] [address] Referral ID Status Reason Start Date Expiration Date Visits Requested Visits Authorized [id number] Authorized PCP Requested Referral 07/24/2024 07/24/2025 1 1 * Molecular Testing (Routine) - Pending Review Specialty Diagnoses / Procedures Referred By Jonah flowers Referred To Contact MOLECULAR & FUNCTIONAL IMAGING Diagnoses Family history of factor V deficiency Procedures FACTOR V LEIDEN/PCR F5 COAGULATION FACTOR V ANAL LEIDEN VARIANT Carol Cunningham APRN.SCHOOL AGE PROGRAM ASSOCIATE [address] [place] [address] Molecular & Functional Imaging [address] [place] [address] Referral ID Status Reason Start Date Expiration Date Visits Requested Visits Authorized [id number] Pending Review PCP Requested Referral Auto-Generate d Referral 07/24/2024 10/22/2024 1 1 [facility] Diagnostic Procedure Only (Urgent) - Closed Specialty Diagnoses / Procedures Referred By Cox Bransonac t Referred To Contact US IMAGING Diagnoses Swelling of lower leg Procedures US DVT LOWER RIGHT DUP-SCAN XTR VEINS UNILATERAL/LIMITED STUDY Carol Cunningham APRN.SCHOOL AGE PROGRAM ASSOCIATE [address] [place] [address] Us Imaging [facility] Referral ID Status Reason Start Date Expiration Date V isits Requested Visits Authorized [id number] Closed Auto-Generate d Referral 07/24/2024 08/23/2025 1 1 [facility] for referral (narrative)* Outpatient Procedure (Routine) - Authorized Specialty Diagnoses / Procedures Referred By Contac t Referred To Contact [facility] Diagnoses Symptomatic varicose veins of right lower extremity Procedures US VENOUS INCOMPETENCY UNL VAS LAB DUP-SCAN XTR VEINS UNILATERAL/LIMITED STUDY Maya Sanchez DO [address] [place] [address] [facility] [address] [place] [address] Referral ID Status Reason Start Date Expiration Date Visits Requested Visits Authorized [id number] Authorized Auto-Generat ed Referral 07/29/2025 1 1 [facility] for referral (narrative)No reason for referral information availableWThe [facility] Work Phone: Reason for visit Narrative* Diagnostic Procedure Only (Urgent) - Closed Specialty Diagnoses / Procedures Referred By Contac t Referred To Contact XR IMAGING Diagnoses Injury of index finger, initial encounter Procedures XR DIGIT GENERAL 3V FRONTAL/LAT/OBL RIGHT RADEX FINGR MINIMUM 2 VIEWS Alexia Lopez PA-C [address] [place] [address] Xr Imaging [facility] Referral ID Status Reason Start Date Expiration Date V isits Requested Visits Authorized [id number] Closed Auto-Generate d Referral 08/17/2023 09/15/2024 1 1 [facility] for visit Narrative* Diagnostic Procedure Only (Urgent) - Closed Specialty Diagnoses / Procedures Referred By Contac t Referred To Contact XR IMAGING Diagnoses Foot pain, right Procedures XR FOOT GENERAL 3V AP/LAT/OBL RIGHT RADEX FOOT COMPLETE MINIMUM 3 VIEWS Marty Cheema, KITMAN.SCHOOL AGE PROGRAM ASSOCIATE [address] [place] [address] [place] [address] Referral ID Status Reason Start Date Expiration Date V isits Requested Visits Authorized [id number] Closed Auto-Generate d Referral 04/20/2023 05/19/2024 1 1 [facility] for visit Narrative* Diagnostic Procedure Only (Urgent) - Closed Specialty Diagnoses / Procedures Referred By Contac t Referred To Contact XR IMAGING Diagnoses Acute right ankle pain Procedures XR ANKLE GENERAL 3V AP/LAT/OBL RT X-RAY ANKLE MINIMUM 3 VIEWS Kaylynn Mixon, KITMAN.SCHOOL AGE PROGRAM ASSOCIATE [address] [place] [address] [place] [address] Referral ID Status Reason Start Date Expiration Date V isits Requested Visits Authorized [id number] Closed Auto-Generate d Referral 06/19/2021 07/19/2022 1 1 [facility] for visit Narrative* Diagnostic Procedure Only (Urgent) - Closed Specialty Diagnoses / Procedures Referred By Contac t Referred To Contact US IMAGING Diagnoses Swelling of lower leg Procedures US DVT LOWER RIGHT DUP-SCAN XTR VEINS UNILATERAL/LIMITED STUDY Carol Cunningham, KITMAN.SCHOOL AGE PROGRAM ASSOCIATE [address] [place] [address] [place] [address] Referral ID Status Reason Start Date Expiration Date V isits Requested Visits Authorized [id number] Closed Auto-Generate d Referral 07/24/2024 08/23/2025 1 1 [facility] Family History Relationship Condition Age at Onset Recorded Date/T ronald Unknown Family History?DVT Unknown August 22, 2017 5:08pm Summary Purpose Advance Directives Advance Directive Response Recorded Date/ Time Do you have a Healthcare Power of Hand Ii Tube Bender? No April 20, 2025 1:43pm Chief Complaint and Reason for Visit Chief Complaint Admit Date general illness April 20, 2025 12: 38pm Chief Complaint Admit Date general illness April 20, 2025 12: 38pm FOOD IMPACTIION NEED TO SCHED ENDOSCOPY May 04, 2025 9:58am INT LABS May 04, 2025 10 :36am Reason for Visit Admit Date Esophageal dysfunction May 04, 2025 9:58am Fecal urgency May 04, 2025 9: 58am Gas bloat syndrome May 04, 2025 9: 58am Additional Source Comments Source Comments (unrecognize d section and content) In the event this informatio n is protected by the Federal Confidentiality of Alcohol and Drug Abuse Patient Records regulations: The Federal rules restrict any use of the information to criminally investigate or prosecute any alcohol or drug abuse patient.[facility] HospitalIn the event this information is protected by the Federal Confidentiality of Alcohol and Drug Abuse Patient Records regulations: The Federal rules restrict any use of the information to criminally investigate or prosecute any alcohol or drug abuse patient.[facility] HospitalIn the event this information is protected by the Federal Confidentiality of Alcohol and Drug Abuse Patient Records regulations: The Federal rules restrict any use of the information to criminally investigate or prosecute any alcohol or drug abuse patient.[facility] HospitalIn the event this information is protected by the Federal Confidentiality of Alcohol and Drug Abuse Patient Records regulations: The Federal rules restrict any use of the information to criminally investigate or prosecute any alcohol or drug abuse patient.[facility] HospitalIn the event this information is protected by the Federal Confidentiality of Alcohol and Drug Abuse Patient Records regulations: The Federal rules restrict any use of the information to criminally investigate or prosecute any alcohol or drug abuse patient.[facility] HospitalIn the event this information is protected by the Federal Confidentiality of Alcohol and Drug Abuse Patient Records regulations: The Federal rules restrict any use of the information to criminally investigate or prosecute any alcohol or drug abuse patient.[facility] HospitalIn the event this information is protected by the Federal Confidentiality of Alcohol and Drug Abuse Patient Records regulations: The Federal rules restrict any use of the information to criminally investigate or prosecute any alcohol or drug abuse patient.[facility] HospitalIn the event this information is protected by the Federal Confidentiality of Alcohol and Drug Abuse Patient Records regulations: The Federal rules restrict any use of the information to criminally investigate or prosecute any alcohol or drug abuse patient.[facility] HospitalIn the event this information is protected by the Federal Confidentiality of Alcohol and Drug Abuse Patient Records regulations: The Federal rules restrict any use of the information to criminally investigate or prosecute any alcohol or drug abuse patient.[facility] HospitalIn the event this information is protected by the Federal Confidentiality of Alcohol and Drug Abuse Patient Records regulations: The Federal rules restrict any use of the information to criminally investigate or prosecute any alcohol or drug abuse patient.[facility] HospitalIn the event this information is protected by the Federal Confidentiality of Alcohol and Drug Abuse Patient Records regulations: The Federal rules restrict any use of the information to criminally investigate or prosecute any alcohol or drug abuse patient.[facility] HospitalIn the event this information is protected by the Federal Confidentiality of Alcohol and Drug Abuse Patient Records regulations: The Federal rules restrict any use of the information to criminally investigate or prosecute any alcohol or drug abuse patient.[facility] HospitalIn the event this information is protected by the Federal Confidentiality of Alcohol and Drug Abuse Patient Records regulations: The Federal rules restrict any use of the information to criminally investigate or prosecute any alcohol or drug abuse patient.[facility] HospitalIn the event this information is protected by the Federal Confidentiality of Alcohol and Drug Abuse Patient Records regulations: The Federal rules restrict any use of the information to criminally investigate or prosecute any alcohol or drug abuse patient.[facility] HospitalIn the event this information is protected by the Federal Confidentiality of Alcohol and Drug Abuse Patient Records regulations: The Federal rules restrict any use of the information to criminally investigate or prosecute any alcohol or drug abuse patient.[facility] HospitalIn the event this information is protected by the Federal Confidentiality of Alcohol and Drug Abuse Patient Records regulations: The Federal rules restrict any use of the information to criminally investigate or prosecute any alcohol or drug abuse patient.[facility] HospitalIn the event this information is protected by the Federal Confidentiality of Alcohol and Drug Abuse Patient Records regulations: The Federal rules restrict any use of the information to criminally investigate or prosecute any alcohol or drug abuse patient.[facility] Reason for Visit (unrecogniz ed section and content) Reason Comments Physical Reason Comments Pain (foot) R foot pain and swel ling x5 days, unknown cause or injury Reason Comments Finger Injury Smashed and sliced f shirley on tongue jessy today Reason Comments Head Congestion cough x 1 week, incr eased x yesterday Reason Comments Acute Visit fatigue and sometime s vertigo and diarrhea Reason Comments Results Labs Reason Comments Acute Visit right ankle swollen and bruised Reason Comments Results US DVT Reason Comments New Patient Specialty Diagnoses / Procedures Referred By Contavery t Referred To Contact Vascular Surgery Diagnoses Swelling of lower leg Procedures CONSULT TO VASCULAR SURGERY OFFICE/OUTPATIENT NEW HIGH MDM 60 MINUTES Carol Cunningham, LUC.SCHOOL AGE PROGRAM ASSOCIATE [address] [place] [address] Referral ID Status Reason Start Date Expiration Date V isits Requested Visits Authorized [id number] Closed PCP Requested Referral 07/24/2024 07/24/2025 1 1 Reason Comments Results Labs Reason Comments Chest Congestion cough x 5 days Reason Comments Established Patient Care Teams (unrecognized sec tion and content) Ham Curer Relationship Specialty Start Date End Date Leslie Baker MD [address] [facility] [place] [address] PCP - General Family Medicine 01/02/19 Ham Curer Relationship Specialty Start Date End Date Leslie Baker MD [address] [facility] [place] [address] PCP - General Family Medicine 01/02/19 Ham Curer Relationship Specialty Start Date End Date Leslie Baker MD [address] [place] [address] PCP - General Family Medicine 01/02/19 Ham Curer Relationship Specialty Start Date End Date Leslie Baker MD [address] [place] [address] PCP - General Family Medicine 01/02/19 Ham Curer Relationship Specialty Start Date End Date Leslie Baker MD [address] [facility] [place] [address] PCP - General Family Medicine 01/02/19 Ham Curer Relationship Specialty Start Date End Date Leslie Baker MD [address] [place] [address] PCP - General Family Medicine 01/02/19 Ham Curer Relationship Specialty Start Date End Date Leslie Baker MD [address] [place] [address] PCP - General Family Medicine 01/02/19 Ham Curer Relationship Specialty Start Date End Date Leslie Baker MD [address] [facility] [place] [address] PCP - General Family Medicine 01/02/19 Ham Curer Relationship Specialty Start Date End Date Leslie Baker MD [address] [facility] [place] [address] PCP - General Family Medicine 01/02/19 Ham Curer Relationship Specialty Start Date End Date Leslie Baker MD [address] [facility] [place] [address] PCP - General Family Medicine 01/02/19 Ham Curer Relationship Specialty Start Date End Date Leslie Baker MD [address] [facility] [place] [address] PCP - General Family Medicine 01/02/19 Ham Curer Relationship Specialty Start Date End Date Leslie Baker MD [address] [facility] [place] [address] PCP - General Family Medicine 01/02/19 Ham Curer Relationship Specialty Start Date End Date Leslie Baker MD [address] [facility] [place] [address] PCP - General Family Medicine 01/02/19 Ham Curer Relationship Specialty Start Date End Date Leslie Baker MD [address] [facility] [place] [address] PCP - General Family Medicine 01/02/19 Carol Cunningham APRN.CNP [address] [facility] [place] [address] Textile Worker Family Medicine 08/24/24 Viet Laguna APRN.SCHOOL AGE PROGRAM ASSOCIATE [address] [facility] [place], [place] [id number] [facility] 09/02/24 Ham Curer Relationship Specialty Start Date End Date Leslie Baker MD [address] [facility] [place], [place] [id number] PCP - General Family Medicine 01/02/19 Carol Cunningham APRN.SCHOOL AGE PROGRAM ASSOCIATE [address] [facility] [place], [place] [id number] [facility] 08/24/24 Viet Laguna APRN.SCHOOL AGE PROGRAM ASSOCIATE [address] [facility] [place], [place] [phone] [facility] 09/02/24 Team Status: Active Member Role Status Dates Shonna Montiel INSPECTOR EXHAUST EMISSIONS, INSPECTOR EXHAUST EMISSIONS-C Primary Care Provider Active Team Status: Inactive Member Role Status Dates Shonna Montiel INSPECTOR EXHAUST EMISSIONS, INSPECTOR EXHAUST EMISSIONS-C Primary Care Provider Active Start: December 18, 2024 End: December 18, 2024 Keven Polanco NP-Sammi Attending Provider Active Start: December 18, 2024 End: December 18, 2024 Keven Polanco NP-Sammi Referring Provider Active Start: December 18, 2024 End: December 18, 2024 Team Status: Active Member Role/Relationship Status Dates Shonna Montiel INSPECTOR EXHAUST EMISSIONS, INSPECTOR EXHAUST EMISSIONS-C Primary Care Provider Active Team Status: Inactive Member Role/Relationship Status Dates Shonna Montiel INSPECTOR EXHAUST EMISSIONS, INSPECTOR EXHAUST EMISSIONS-C Primary Care Provider Active Start: April 20, 2025 End: April 20, 2025 Dr. Jese Mena MD Referring Provider Active Start: April 20, 2025 End: April 20, 2025 Dr. Jese Mena MD Emergency Provider Active Start: April 20, 2025 End: April 20, 2025 Ham Curer Relationship Specialty Start Date End Date Leslie Baker MD [address] [facility] [place] [phone] PCP - General Family Medicine 01/02/19 Viet Laguna APRN.SCHOOL AGE PROGRAM ASSOCIATE [address] [facility] [place] [address] Textile Worker Family Medicine 09/02/24 Team Status: Inactive Member Role/Relationship Status Dates Shonna Montiel NP, NP-C Primary Care Provider Active Start: April 20, 2025 End: April 20, 2025 Dr. Jese Mena MD Attending Provider Active Start: April 20, 2025 End: April 20, 2025 Dr. Jese Mena MD Referring Provider Active Start: April 20, 2025 End: April 20, 2025 Dr. Jese Mena MD Emergency Provider Active Start: April 20, 2025 End: April 20, 2025 Team Status: Inactive Member Role/Relationship Status Dates Shonna Montiel NP, NP-Sammi Primary Care Provider Active Start: May 04, 2025 End: May 04, 2025 Shonna Montiel NP, NP-Sammi Referring Provider Active Start: May 04, 2025 End: May 04, 2025 CHELY Walsh Attending Provider Active S tart: May 04, 2025 End: May 04, 2025 Team Status: Active Member Role/Relationship Status Dates Shonna Montiel NP, NP-C Primary Care Provider Active Start: May 04, 2025 CHELY Walsh Attending Provider Active S tart: May 04, 2025 CHELY Walsh Referring Provider Active S tart: May 04, 2025 Goals (unrecognized section and content) Goals may be documented in a n alternate sectionGoals may be documented in an alternate sectionGoals may be documented in an alternate section (unrecognized sect ion and content) No Status Records FoundNo Status Records Found INFORMATION SOURCE (unrecogn ized section and content) DATE CREATED AUTHOR 02/25/2025 [facility] DATE CREATED AUTHOR 'Loni ESPARZA 05/01/2025 [facility] FOR RECORDS PERTAINING TO PATIENTS WHO ARE OR HAVE BEEN ENROLLED IN A CHEMICAL DEPENDENCY/SUBSTANCEABUSE PROGRAM, SOME INFORMATION MAY BE OMITTED. This clinical summary was aggregated from multiple sources. Caution should be exercised in using it in the provision of clinical care. This summary normalizes information from multiple sources, and as a consequence, information in this document may materially change the coding, format and clinical context of patient data. In addition, data may be omitted in some cases. CLINICAL DECISIONS SHOULD BE BASED ON THE PRIMARY CLINICAL RECORDS. [facility]. provides no warranty or guarantee of the accuracy or completeness of information in this document.
[2025-05-07 13:08] LABS: ANTINUCLEAR ANTIBODIES DIRECT Negative (Negative); Egg, Whole <0.10 kU/L (Class 0); Mussels <0.10 kU/L (Class 0)
== END 2025-05-04 23:59 | disposition home or self-care (01) ==
LOC: LAB 10:37
PROVIDERS: PCP Nurse Practitioner
DX: K22.4 Dyskinesia of esophagus (principal); R15.2 Fecal urgency; K92.89 Other specified diseases of the digestive system
CPT/HCPCS: 36415; 86003; 86005; 86038; 86140; 86225

== ENCOUNTER 2025-07-14 11:21 | Day surgery (SDC) | payer OTHER, SELFPAY ==
[2025-07-14] VITALS (8 sets, daily range): BP systolic 124–139; BP diastolic 81–91; PULSE 74–94; RESP 16–18; TEMP 36.1–36.4; O2SAT 95–99; BMI 32.5
[2025-07-14] MEDS: Lactated Ringers 1,000 ML 15 ML IV (11:45)
--- NOTE | 2025-07-14 12:08 | PCM.PRE.AN2 ---
ASA Classification* ASA Classification ASA Classification: 1 Assessment & Plan Anesthesia* Anesthesia Assessment Anesthesia Assessment: Discussed sedation and/or anesthesia options, risks, benefits, and alternatives with patient/parents/legal guardian/POA. Questions invited. The patient/parents/legal guardian/POA seems to understand and agrees to proceed with anesthesia plan. Reviewed the physical assessment, medical history, allergy history and patient home medications list prior to surgery/procedure/anesthetic and documented any changes. Performed airway and anesthesia risk assessments. Anesthesia Type Anesthesia Type: MAC History Source History Obtained from:: Patient and Chart Anesthesia Focused Assessment* Temperature: 97.5 F Pulse Rate: 74 Blood Pressure: 127/81 Respiratory Rate: 16 Pulse Ox: 99 Oxygen Delivery Method: Room Air Airway Assessment Mouth opens: >3 cm Mallampati Score: II Teeth Condition: Intact Neck Range of motion (ROM): Full ROM Labs Anesthesia Preop lab: CBC WBC, (4.4-11.0) 8.1 K/mm3 08/22/17, 08:24 RBC, (4.6-6.2) 5.55 M/mm3 08/22/17, 08:24 Hgb, (13.0-16.5) 14.5 g/dL 12/18/24, 12:41 Hct, (40-54) 44.7 % 12/18/24, 12:41 Plt Count, (150-450) 256 K/mm3 08/22/17, 08:24 CHEMISTRY Potassium, (3.3-5.1) 4.3 mmol/L 12/18/24, 12:41 Sodium, (133-145) 140 mmol/L 12/18/24, 12:41 BUN, (4-19) 13 mg/dL 12/18/24, 12:41 Creatinine, (0.70-1.20) 0.97 mg/dL 12/18/24, 12:41 Glucose, (70-99) 82 mg/dL 12/18/24, 12:41 TSH, (0.300-4.200) 1.990 uIU/mL 12/18/24, 12:41 COAG Pre-Assessment Diagnosis/Proposed Procedure Planned Operative Procedure(s): EGD Anesthesia History Anesthesia History - cmm programmer: Anesthesia History - cmm programmer Hx Hospitalization No 10/24/25 16:10 Any Problems With Anesthesia Yes: WAS TOLD HE WAS 07/10/25 16:10 COMBATIVE X1 SURGERY; NOT OTHER SURGERY Cholinesterase deficiency No 07/10/25 16:10 You/Your Family Experience No 07/10/25 16:10 fever (hyperthermia) with Relationship Recent Exposure to Contagious No 07/14/25 11:36 Disease Does patient have nerve No 07/10/25 16:10 stimulator Patient instructed to have device shut off --Does patient have Pacemaker No 07/14/25 11:36 or ICD? When Was Last Pacemaker Check QUESTION #4 FULL TEXT: You/Your Family Experience fever (hyperthermia) with Anesthesia Last Oral Intake Last Oral intake: Last Oral Intake NPO since 07:30 07/14/25 11:36 Meds taken in AM with sips of No 07/14/25 11:36 water? Meds patient instructed to take am of surgery PONV PONV - cmm programmer: PONV - cmm programmer Female No 07/10/25 16:10 HX of Motion Sickness Yes 07/10/25 16:10 HX of N/V After Surgery No 07/10/25 16:10 Non-Smoker No 07/10/25 16:10 Duration of Surgery greater No 07/10/25 16:10 than 60 minutes Number of Risk Factors 1 07/10/25 16:10 PONV Score Low Risk 07/10/25 16:10 Height & Weight Height & Weight: Anesthesia: Height & Weight Height 6 ft 2 in 07/14/25 11:36 Weight: 115 kg 07/14/25 11:36 Body Mass Index (BMI) 32.5 07/14/25 11:36 Respiratory Assessment Respiratory Assessment - cmm programmer: Respiratory Tract Infection Hx - cmm programmer Hx Respiratory Tract Infection No 07/10/25 16:10 STOP Sleep Apnea STOP Sleep Apnea - cmm programmer: STOP Sleep Apnea - cmm programmer Hx Hypertension No 07/10/25 16:10 Hx Sleep Apnea Yes 07/10/25 16:10 CPAP Yes 07/10/25 16:10 BIPAP No 07/10/25 16:10 Do you snore loudly (louder than talking or can be heard Do you often feel tired/ fatigued/ sleepy during daytime? Has anyone observed you stop breathing during sleep? STOP Results Positive 07/10/25 16:10 QUESTION #5 FULL TEXT : Do you snore loudly (louder than talking or can be heard through closed doors)? Tobacco Use History Tobacco Use History - cmm programmer: Tobacco Use History - cmm programmer Tobacco Use Smoking Status Current some day smoker 07/10/25 16:10 Hx Tobacco Use No 07/10/25 16:10 Years Smoking Packs Smoked per Day Smoking Cessation Date was within the last 15 years Hx Smoking Cessation Date Hx Smoking Cessation Counseling Hematologic Medial History Hematologic Hx - cmm programmer: Hematologic Medical Hx - voice teacher Hx of Blood Transfusion No 07/10/25 16:10 Hx of Transfusion in last 3 No 07/10/25 16:10 Months Date of Last Transfusion (if within last 3 months) Ever experience any problems No 07/10/25 16:10 with transfusion(s)? Specify any problems Hx of Preganancy in last 3 N/A 07/10/25 16:10 Months Nurse Filling Out Transfusion MGRIFFITH 07/10/25 16:10 & Questions: Date: 07/10/25 07/10/25 16:10 Time: 16:14 07/10/25 16:10 Patient unable to answer at this time (ie. confused, unrespo /Reproduction History /Reproductive History - cmm programmer: /Reproductive Hx- cmm programmer Hx Now Gestational Age (in weeks): EDC: Hx Hx Para Hx Section SAB Active Medications Active Medications: Current Medications Generic Name Dose Route Start Last Admin Trade Name Freq PRN Reason Stop Dose Admin Lactated Ringer's 1,000 mls @ 15 mls/hr 07/14/25 11:30 07/14/25 11:45 IV 15 mls/hr .Q48H DAVID Administration PFSH Medical History Wears contact lenses Gastric reflux Smoker Encounter for screening for COVID-19 Allergy/AdvReac Type Severity Reaction Status Date / Time owens (cherries) Allergy Swelling Verified 07/14/25 11:35 Surgical History History of wisdom tooth extraction History of cholecystectomy History of appendectomy Social History housing: house Smoking Status: Current some day smoker tobacco type: cigars per week: 1 Review of Systems (Anesthesia) ROS Narrative System reviewed and no additional complaints, except as documented.
--- NOTE | 2025-07-14 12:30 | EGD_PTH ---
PATIENT: ROSHAN CORBETT LOC: EN U#:[id number] AGE/SX: 35/M ROOM: RE07/14/[address]: Dr. Zeb Dozier DO : 1990 BED: DIS: 07/14/2025 SPEC #: [id number] RECD: 07/14/25 13:30 STATUS: LAKIA REMiguel #: [id number] NANDO: 07/14/25 12:[address]: Zeb Dozier DEPT: SURGICAL PATHOLOGY RECD BY: Giorgi Talbert ENTERED: 07/14/25 13:49 SP TYPE: EGD BIOPSY ROWENA DR: Dr. Jossue Baker MD Tissues: A - Esophagus, NOS B - Esophagus, NOS Procedures: Surgery Specimen Level IV HEADER OPERATION: EGD, biopsy, dilation PRE-OP DIAGNOSIS: Esophageal dysfunction, fecal urgency, gas bloat syndrome TISSUE SUBMITTED: A- Random esophagus biopsy, B- Distal esophagus biopsy MICROSCOPIC DIAGNOSIS A. Esophagus, random, biopsy: - Benign squamous mucosa with rare eosinophils (up to 2 eosinophils per high power field). B. Distal esophagus, biopsy: - Squamous mucosa with reactive changes and up to 55 eosinophils per high power field. - Columnar mucosa negative for goblet cell metaplasia. MICROSCOPIC DESCRIPTION Slides are reviewed. GROSS DESCRIPTION A. Received in fixative is one container labeled with the patient's name and designated "Random esophagus biopsy." The specimen consists of two irregular fragments of rivera tissue that measure 0.4 and 0.6 cm. The specimen is totally submitted in one cassette. B. Received in fixative is one container labeled with the patient's name and designated "Distal esophagus biopsy." The specimen consists of two irregular fragments of rivera tissue that measure 0.4 and 0.5 cm. The specimen is totally submitted in one cassette. MI 07/14/2025 CPT:62570y1
--- NOTE | 2025-07-14 12:31 | HP.PCM_ITS ---
HPI - General General Date of Admission: 07/14/25 Date of Service: 07/14/25 HPI Narrative ROSHAN CORBETT, is a 35 M who presents to the office today for establishment with [facility] regarding concerns of increasing episodes of food impaction and urgent loose stools. 04.20.25 [facility] ER states he was eating dinner last night which included brisket and he swallowed a piece of brisket and he felt it get stuck in his lower chest/esophagus. He tried to drink some water and vomited it up as a result. Eventually, he felt it passed and then he was able to eat and drink without any difficulty. Ever since he has had some mild epigastric discomfort that feels like a knot, and a couple times he felt some acid reflux in the back of his throat which he has felt before. Does not take anything regularly for it. He woke up in the middle of the night feeling achy all over like he had the flu. He had a mild cough for couple days, nonproductive, no fevers or chills but he states he feels very malaised today. He denies any other new symptoms, he denies ever having a choking spell or felt like he aspirated during any of this. He does not feel out of breath now or have any chest discomfort. He states he has had foods get stuck after swallowing in the past maybe 3 times he has never lasted this long or been this bad is this episode. He states it was with meat and bread in the past but it was relatively brief as far as the amount of time he got stuck. ER did a COVID/influenza/RSV swab that is negative. 2 view chest x-ray my interpretation shows nothing really obvious, but radiology sees a subtle patchy opacity in the right upper lobe consistent with an early pneumonia. Given the location and history, this is suspicious for aspiration etiology. Augmentin would be reasonable coverage patient does not have a penicillin allergy. After GI cocktail and pantoprazole, he had resolution of his epigastric discomfort and GI symptoms, which was expected. There is no evidence of esophageal perforation on the x-ray. I discussed with GI Dr. Dozier, he agrees with putting him on pantoprazole and have him follow-up as an outpatient for scope. He continues to take pantoprazole 40mg daily, has nearly completed Augmentin [id number] [id number] therapy. He states that he had forgotten a couple of the PM doses of the Augmentin, he is finishing those. He reports that he has had several episodes of food impaction, but this recent incident was the most severe. He has learned to just "take smaller bites," but it seems to always happen with meats. He states that he has occasional issues with heartburn and has even waken up several times to stomach acid in his mouth and nose. He denies ever had any endoscopies. He also reports increased frequency of loose stools with urgency. He reports fecal urgency in the past and deduced by food elimination that it was due to "eating too much sugar." He reports clean eating now. Since starting the pantoprazole and Augmentin the stools are loose and he 2 to 3 BMs a day, "never really feeling complete." He denies abdominal pain, straining, hematochezia and melena. He does report abdominal bloating with mild cramping. History of cholecystectomy in 2017 and appendectomy in 2018. He denies history of asthma, and states his only known food intolerance is to owens pits - he can eat pre-pitted cherries, but if he gets a owens pit in his mouth he will get a "scratchy throat." He drinks 1 energy drink daily, only drinks 1 cup of coffee on days that he doesn't have an energy drink. He has a weekly cigar, "doesn't inhale," and denies alcohol and drug use. [facility] Medical History Wears contact lenses Gastric reflux Smoker Encounter for screening for COVID-19 Allergy/AdvReac Type Severity Reaction Status Date / Time owens (cherries) Allergy Swelling Verified 07/14/25 11:35 Surgical History History of wisdom tooth extraction History of cholecystectomy History of appendectomy Social History housing: house Smoking Status: Current some day smoker tobacco type: cigars per week: 1 ROS Constitutional Constitutional: Denies fatigue, fever(s), poor appetite, weight gain or weight loss Gastrointestinal Gastrointestinal: Denies belching, bloating, change in bowel habits, change in stool character, chewing difficulty, coffee ground emesis, constipation, cramping, diarrhea, dyspepsia, dysphagia, early satiety, excessive flatus, fecal incontinence, heartburn, hematemesis, hematochezia, hemorrhoids, loose stools, melena, nausea, odynophagia, rectal bleeding, tenesmus, vomiting or weight changes Vital Signs Vital Signs Vital Signs: 07/14/25 11:36 07/14/25 11:36 07/14/25 12:09 Temperature 97.5 F L 97.5 F L Temperature Source Temporal Pulse Rate 74 74 Respiratory Rate 16 16 Respiratory Pattern Normal Blood Pressure 127/81 H 127/81 H Blood Pressure Mean 96 Blood Pressure Source Monitor Blood Pressure Position Semi-Fowlers Blood Pressure Location Right Arm Pulse Ox 99 99 Oxygen Delivery Method Room Air Room Air Weight Weight: 253 lb 8.505 oz Body Mass Index (BMI) 32.5 Physical Exam Const alert, oriented x3, no apparent distress and healthy appearing General Appearance: cooperative GI normal to inspection, nondistended, normoactive bowel sounds, soft to palpation, non-tender and non-distended Percussion: normal to percussion Rectal Exam: deferred Assessment & Plan Assessment/Plan (1) Gas bloat syndrome: (2) Esophageal dysfunction: (3) Fecal urgency: PLAN: Assessment and Plan Assessment and Plan (1) Esophageal dysfunction: Status: Acute (2) Fecal urgency: Status: Acute (3) Gas bloat syndrome: Status: Acute Orders: Orders Allergen, Food Profile 14 Today K22.4 - Dyskinesia of esophagus, K92.89 - Other specified diseases of the digestive system, R15.2 - Fecal urgency Calprotectin, Stool Today K22.4 - Dyskinesia of esophagus, K92.89 - Other specified diseases of the digestive system, R15.2 - Fecal urgency CRP Today K22.4 - Dyskinesia of esophagus, K92.89 - Other specified diseases of the digestive system, R15.2 - Fecal urgency Pancreatic Elastase, Fecal Today K22.4 - Dyskinesia of esophagus, K92.89 - Other specified diseases of the digestive system, R15.2 - Fecal urgency MARCO ANTONIO w/ Reflex Mult Confirm Today K22.4 - Dyskinesia of esophagus, K92.89 - Other specified diseases of the digestive system, R15.2 - Fecal urgency Swallowing Function w/Video Today K22.4 - Dyskinesia of esophagus Plan ROSHAN CORBETT, is a 35 M who presents to the office today for establishment with [facility] regarding concerns of increasing episodes of food impaction and urgent loose stools. Discussed care plan with him. Reviewed that both Augmentin and pantoprazole can increase loose stools, recommended waiting for 1week after completion of antibiotic before changing PPI therapy. He is ok with this plan. Differentials include: EoE, GERD w/esophagitis, gas bloat syndrome, food allergies. * blood for food allergies, CRP, MARCO ANTONIO w/reflex * stool for calprotectin and enzymes * swallowing function video * schedule EGD * continue pantoprazole 40mg daily * low FODMAP diet x3wks, slowly reintroduce foods back 1 at a time every 3days * office FU 2wks after EGD
[2025-07-14] MEDS: fentaNYL 100 MCG/2 ML Ampul IV (12:42)
--- NOTE | 2025-07-14 12:59 | PCM.POST.ANE ---
Anesthesia: Postop Eval I Current Vital Signs Temperature: 97 F Pulse Rate: 94 Blood Pressure: 139/91 Respiratory Rate: 16 Pulse Ox: 97 Oxygen Delivery Method: Room Air Assessment Airway patent: Yes Spontaneous unlabored respirations: Yes Mental status: Awake and Calm nausea: No Vomiting: No Anesthesia Complication: No Fluid Hydration Crystalloid volume administer (ml): 400 Total IV fluid infused: 400 Progress Note Anesthesia document: Postop Eval 1 completed: Yes
--- NOTE | 2025-07-14 13:11 | OP.PROVAT_ITS ---
07/14/2025 Jossue Baker [address] [place] [address] Re : Upper GI endoscopy procedure for Wilfredo Bello Dear Dr. Baker This procedure was performed on Monday, July 14, 2025. My impressions and recommendations are as follows: Impressions : - Esophageal mucosal changes consistent with eosinophilic esophagitis. Dilated. - Clear gastric fluid. - Biopsies were taken with a cold forceps for evaluation of eosinophilic esophagitis. Recommendations : - Discharge patient to home. - Resume previous diet. - Continue present medications. - Await pathology results. My findings are described in the full procedure note, which is enclosed. If I can be of further assistance, please feel free to contact me at . Sincerely, Zeb Dozier, 07/14/2025 1:10:29 PM This report has been signed electronically.
--- NOTE | 2025-07-14 13:11 | OP.EGD_ITS ---
Patient Name: Wilfredo Bello Procedure Date: 07/14/2025 12:35 PM Date of : 1990 Age: 35 Procedure: Upper GI endoscopy Indications: Epigastric abdominal pain, Abdominal pain in the right lower quadrant, Abdominal pain in the left lower quadrant, Dysphagia, Suspected esophageal reflux Providers: Zeb Dozier DO Referring MD: Zeb Dozier DO Medicines: Monitored Anesthesia Care Patient Profile: This is a 35 year old male. Refer to note in patient chart for documentation of history and physical. Patient has symptoms of chronic abdominal cramping, chronic epigastric abdominal pain, dysphagia with solids and chronic dyspepsia. Complications: No immediate complications. Procedure: Pre-Anesthesia Assessment: - Prior to the procedure, a History and Physical was performed, and patient medications and allergies were reviewed. The patient is competent. The risks and benefits of the procedure and the sedation options and risks were discussed with the patient. All questions were answered and informed consent was obtained. Patient identification and proposed procedure were verified by the physician in the pre-procedure area. Mental Status Examination: alert and oriented. Airway Examination: normal oropharyngeal airway and neck mobility. Respiratory Examination: clear to auscultation. CV Examination: normal. Prophylactic Antibiotics: The patient does not require prophylactic antibiotics. Prior Anticoagulants: The patient has taken no anticoagulant or antiplatelet agents except for NSAID medication. ASA Grade Assessment: II - A patient with mild systemic disease. After reviewing the risks and benefits, the patient was deemed in satisfactory condition to undergo the procedure. The anesthesia plan was to use monitored anesthesia care (MAC). Immediately prior to administration of medications, the patient was re-assessed for adequacy to receive sedatives. The heart rate, respiratory rate, oxygen saturations, blood pressure, adequacy of pulmonary ventilation, and response to care were monitored throughout the procedure. The physical status of the patient was re-assessed after the procedure. After obtaining informed consent, the endoscope was passed under direct vision. Throughout the procedure, the patient's blood pressure, pulse, and oxygen saturations were monitored continuously. The Endoscope was introduced through the mouth, and advanced to the third part of the duodenum. Small bowel enteroscopy was deemed necessary. The upper GI endoscopy was accomplished without difficulty. The patient tolerated the procedure well. Scope In: 12:43:54 PM Scope Out: 12:51:29 PM Total Procedure Duration Time 0 hours 7 minutes 35 seconds Findings: Mucosal changes including ringed esophagus and small-caliber esophagus were found in the middle third of the esophagus and in the lower third of the esophagus. Biopsies were obtained from the proximal and distal esophagus with cold forceps for histology of suspected eosinophilic esophagitis. A guidewire was placed and the scope was withdrawn. Dilation was performed with a Savary dilator with no resistance at 57 Fr. Clear fluid was found in the gastric body. The exam of the duodenum was otherwise normal. Impression: - Esophageal mucosal changes consistent with eosinophilic esophagitis. Dilated. - Clear gastric fluid. - Biopsies were taken with a cold forceps for evaluation of eosinophilic esophagitis. Recommendation: - Discharge patient to home. - Resume previous diet. - Continue present medications. - Await pathology results. Procedure Code(s): --- Professional --- 43790, Esophagogastroduodenoscopy, flexible, transoral; with insertion of guide wire followed by passage of dilator(s) through esophagus over guide wire 31626, 59,51, Small intestinal endoscopy, enteroscopy beyond second portion of duodenum, not including ileum; with biopsy, single or multiple CPT copyright 2021 [employer]. All rights reserved. The codes documented in this report are preliminary and upon tree trimmer helper review may be revised to meet current compliance requirements. Zeb Dozier DO 07/14/2025 1:10:29 PM This report has been signed electronically. Number of Addenda: 0 Note Initiated On: 07/14/2025 12:35 PM
--- NOTE | 2025-07-14 14:55 | POSTOPAN2_ITS ---
Anesthesia Postop Eval I Sum Postop Eval Completion status Anesthesia document: Postop Eval 1 completed: Yes Anesthesia Postop Eval I Summary Anesthesia Postop Eval I Summary: Anesthesia Postop Eval I: Assessment Summary Airway patent Yes 07/14/25 12:59 EMBEDDED SOFTWARE [email or web address] Spontaneous unlabored Yes 07/14/25 12:59 EMBEDDED SOFTWARE [email or web address] respirations Mental status Awake,Calm 07/14/25 12:59 EMBEDDED SOFTWARE [email or web address] nausea No 07/14/25 12:59 EMBEDDED SOFTWARE MANAGER.[email or web address] Vomiting No 07/14/25 12:59 EMBEDDED SOFTWARE MANAGER.[email or web address] Anesthesia Postop Eval I: Fluid Summary Crystalloid volume administer 400 07/14/25 12:59 EMBEDDED SOFTWARE MANAGER.[email or web address] (ml) Colloids volume administered ( ml) Blood Product volume administered (ml) Total IV fluid infused 400 07/14/25 12:59 EMBEDDED SOFTWARE MANAGER.[email or web address] Anesthesia Postop Eval I: Summary Notes Anesthesia Complication No 07/14/25 12:59 EMBEDDED SOFTWARE MANAGER.[email or web address] Anesthesia Complication Comment: Post-operative progress note Anesthesia: Postop Eval II Evaluation Mental status: Awake and Calm Pain Level: 1 nausea: No Vomiting: No Complications Anesthesia Complication: No
--- NOTE | 2025-07-14 14:55 | PCM.POSTANE2 ---
Anesthesia Postop Eval I Sum Postop Eval Completion status Anesthesia document: Postop Eval 1 completed: Yes Anesthesia Postop Eval I Summary Anesthesia Postop Eval I Summary: Anesthesia Postop Eval I: Assessment Summary Airway patent Yes 07/14/25 12:59 ASSISTED LIVING COORDINATOR.[email or web address] Spontaneous unlabored Yes 07/14/25 12:59 ASSISTED LIVING COORDINATOR.[email or web address] respirations Mental status Awake,Calm 07/14/25 12:59 ASSISTED LIVING COORDINATOR.GDOTT nausea No 07/14/25 12:59 ASSISTED LIVING COORDINATOR.GDOTT Vomiting No 07/14/25 12:59 ASSISTED LIVING COORDINATOR.GDOTT Anesthesia Postop Eval I: Fluid Summary Crystalloid volume administer 400 07/14/25 12:59 ASSISTED LIVING COORDINATOR.GDOTT (ml) Colloids volume administered ( ml) Blood Product volume administered (ml) Total IV fluid infused 400 07/14/25 12:59 ASSISTED LIVING COORDINATOR.GDOTT Anesthesia Postop Eval I: Summary Notes Anesthesia Complication No 07/14/25 12:59 ASSISTED LIVING COORDINATOR.GDOTT Anesthesia Complication Comment: Post-operative progress note Anesthesia: Postop Eval II Evaluation Mental status: Awake and Calm Pain Level: 1 nausea: No Vomiting: No Complications Anesthesia Complication: No
== END 2025-07-14 13:34 | disposition home or self-care (01) ==
LOC: EN 11:22 → AC 11:23
PROVIDERS: PCP Family Medicine; Referring Provider Family Medicine; Visit Provider Internal Medicine Gastroenterology
PROC: 0DJ08ZZ Inspection of Upper Intestinal Tract, Via Natural or Artificial Opening Endoscopic (ICD-10-PCS; CPT 43235; principal; 2025-07-14 12:25)
DX: K22.4 Dyskinesia of esophagus (principal); R10.85 Abdominal pain of multiple sites; Z79.899 Other long term (current) drug therapy; K21.9 Gastro-esophageal reflux disease without esophagitis; Z90.49 Acquired absence of other specified parts of digestive tract; F17.290 Nicotine dependence, other tobacco product, uncomplicated; R14.0 Abdominal distension (gaseous); R15.2 Fecal urgency; K22.89 Other specified disease of esophagus
CPT/HCPCS: 43248; 88305; C1769; J2405